=== PATIENT | male | born 1930 | race Caucasian/White ===

== ENCOUNTER 2017-06-07 09:50 | Emergency (ER) | payer MEDICARE, OTHER ==
[2017-06-07] MEDS ORDERED: Albuterol 0.083% 2.5 MG/3 ML Neb Soln NEB ONE (12:35)
--- NOTE | 2017-06-07 12:39 | CR ---
Chest: Frontal view of the chest was obtained. Comparison: No previous study. Large hiatal hernia seen. Heart size appears within normal limits. Sternotomy for CABG is seen. Lungs are clear. Bony structures are grossly intact. Impression: 1. Large hiatal hernia. Prior CABG. 2. Nothing acute is appreciated on frontal chest x-ray. Diagnostic code #2
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
== END 2017-06-07 13:34 | disposition home or self-care (01) ==
LOC: SUPCPDRO 09:50 → JD.ED 09:50
DX: J40 Bronchitis, not specified as acute or chronic (principal); I10 Essential (primary) hypertension; K21.9 Gastro-esophageal reflux disease without esophagitis; G30.9 Alzheimer's disease, unspecified; F02.80 Dementia in other diseases classified elsewhere, unspecified severity, without behavioral disturbance, psychotic disturbance, mood disturbance, and anxiety; Z79.82 Long term (current) use of aspirin; Z79.899 Other long term (current) drug therapy; Z79.02 Long term (current) use of antithrombotics/antiplatelets; Z88.1 Allergy status to other antibiotic agents; Z88.5 Allergy status to narcotic agent; Z88.8 Allergy status to other drugs, medicaments and biological substances
CPT/HCPCS: 36415; 71045; 71045-26; 80053; 83880; 85025; 93005; 93010; 94640; 99283-25; 99284-25

== ENCOUNTER 2017-06-09 19:27 | Emergency (ER) | payer MEDICARE, OTHER ==
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
[2017-06-09] MEDS: Albuterol/Ipratropium 3.0-0.5 MG/3 ML Neb Soln NEB ONE (20:50)
[2017-06-09] MEDS: Albuterol 6.7 GM Inhaler INH ONE (22:33)
[2017-06-09] MEDS: Famotidine 20 MG Tab PO ONE (23:36)
--- NOTE | 2017-06-10 08:17 | CR ---
Chest: Two views of the chest were obtained. Comparison: Prior chest x-ray of 06/07/17. Large hiatal hernia is seen. Heart size appears within normal limits. Tortuous thoracic aorta is seen. Sternotomy wires are noted from prior CABG. Bony structures are osteopenic. Degenerative endplate spurring is noted within the lower thoracic spine. Lungs are clear with no acute parenchymal densities. Impression: 1. Findings as noted above. Nothing acute is appreciated on two-view chest x-ray. Diagnostic code #2
== END 2017-06-09 23:50 | disposition home or self-care (01) ==
LOC: JD.ED 19:27
DX: J40 Bronchitis, not specified as acute or chronic (principal); K21.9 Gastro-esophageal reflux disease without esophagitis; I10 Essential (primary) hypertension; I25.2 Old myocardial infarction; Z88.8 Allergy status to other drugs, medicaments and biological substances; Z88.5 Allergy status to narcotic agent; Z79.82 Long term (current) use of aspirin; Z79.899 Other long term (current) drug therapy
CPT/HCPCS: 36415; 71046; 80053; 83880; 84484; 85025; 93005; 94640; 94664; 99285; A9270

== ENCOUNTER 2017-06-11 13:04 | Inpatient (IN) | payer MEDICARE, OTHER ==
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
[2017-06-11] MEDS: Sodium Chloride 0.9% 1,000 ML IV SCH ×2 (15:51→22:51)
[2017-06-11] MEDS ORDERED: Iopamidol 755 Mg/ML 100 ML Bottle IVPUSH ONE (15:53)
[2017-06-11] MEDS ORDERED: Sodium Chloride 0.9% 10 ML Syringe FLUSH PRN (15:53)
[2017-06-11] MEDS ORDERED: Sodium Chloride 0.9% 100 ML IV SCH (16:00)
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
[2017-06-11] MEDS ORDERED: LORazepam 2 MG/ML SDV IVPUSH PRN (20:11)
[2017-06-11] MEDS ORDERED: Promethazine 6.25 MG in Sodium Chloride 0.9% 50 ML IV PRN (20:15)
[2017-06-11] MEDS ORDERED: HYDROmorphone 0.5 MG/0.5 ML SYRINGE IVPUSH PRN (20:15)
[2017-06-11] MEDS ORDERED: Docusate Sodium 100 MG Cap PO PRN (20:15)
[2017-06-11] MEDS ORDERED: Albuterol/Ipratropium 3.0-0.5 MG/3 ML Neb Soln NEB PRN (20:15)
[2017-06-11] MEDS ORDERED: Bisacodyl 5 MG Tab PO PRN (20:15)
[2017-06-11] MEDS ORDERED: Polyethylene Glycol 3350 Powder 17 GM Packet PO PRN (20:15)
[2017-06-11] MEDS ORDERED: Ondansetron 4 MG/2 ML SDV IV PRN (20:15)
[2017-06-11] MEDS ORDERED: LORazepam 2 MG/ML SDV IV PRN (20:15)
[2017-06-11] MEDS: Temazepam 7.5 MG Cap PO PRN (22:21)
[2017-06-11] MEDS: Midodrine 5 MG Tab PO SCH (22:21)
[2017-06-12] MEDS: Benzonatate 100 MG Cap PO SCH ×3 (08:44→21:13)
[2017-06-12] MEDS ORDERED: Benzonatate 100 MG Cap PO PRN (08:46)
[2017-06-12] MEDS: Midodrine 5 MG Tab PO SCH ×3 (08:49→18:20)
[2017-06-12] MEDS: guaiFENesin/Dextromethorphan 100-10 MG/5 ML Soln 5 ML Cup PO PRN ×2 (11:07→18:21)
[2017-06-12] MEDS: Enoxaparin 40 MG/0.4 ML Syringe SUBCUT SCH (11:07)
--- NOTE | 2017-06-12 16:52 | CT ---
Head CT Technique: Multiple axial sections through the brain were obtained. Intravenous contrast was not utilized. Comparison: No prior intracranial imaging. Findings: Ventricles along with basal cisterns and sulci over the convexities are moderately prominent. Diminished density is noted within the periventricular and subcortical white matter which is compatible with small vessel ischemic demyelination change. Several lacunar infarcts are noted within the basal ganglia on both sides. No evidence of intracranial hemorrhage. No midline shift or mass effect is seen. Atherosclerotic calcification is seen within the vertebral vessels and within the carotid siphon. Mild mucosal thickening is seen within the maxillary and ethmoid sinuses. No air-fluid levels are seen within the paranasal sinuses. No acute calvarial abnormality is seen. Impression: 1. Sinus findings felt to be chronic. 2. Senescent change as noted above. 3. Nothing acute is identified on noncontrast head CT study. Diagnostic code #2 I agree with preliminary report issued by [facility] ([facility] preliminary report dictated on 06/11/17, 3:44 PM Central Time)
--- NOTE | 2017-06-12 16:52 | CR ---
Abdominal series: Supine and upright views of the abdomen were obtained as well as frontal view of the chest. Comparison: No prior abdominal x-ray, prior chest x-ray of 06/09/17 is available. Large hiatal hernia is noted. Heart size appears within normal limits. Atherosclerotic change is noted within the aorta. Sternotomy wires are noted as well as mediastinal surgical clips. Lungs are clear. No free air is identified. Bowel gas pattern appears normal. Vascular calcification is seen. Osteopenia is noted. Degenerative change is scattered within the spine. Impression: 1. Incidental findings. Nothing acute is appreciated on abdominal series. Diagnostic code #2
--- NOTE | 2017-06-12 16:52 | CT ---
CT chest Technique: Multiple axial sections were obtained from above the lung apices inferiorly through the lung bases. Intravenous contrast was utilized. Study has been performed as a pulmonary angiogram protocol. Comparison: No prior chest CT is available. Findings: Soft tissue abnormalities are seen most likely due to bypass graft aneurysms with one being seen lateral to the left pulmonary artery with greatest measurement of 4.2 cm. Second aneurysm believed to be present adjacent to the right ventricle which is bilobed and measures about 4.6 cm in greatest dimension. No pericardial thickening is seen. Pulmonary arteries are well-opacified. No filling defects are seen to indicate pulmonary embolism. Mediastinum and hilar regions show no adenopathy or mass. No axillary adenopathy is noted. Large hiatal hernia is noted. Intrahepatic biliary air is seen and please correlate if patient has had previous biliary intervention. Degenerative spurring is noted throughout the spine. Lungs show no acute parenchymal change. Impression: 1. 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 2. Large hiatal hernia. 3. No findings of pulmonary embolism. 4. Other incidental findings as noted above. Diagnostic code #3 Agree with preliminary report issued by [facility] ([facility] preliminary report dictated on 06/11/17, 5:35 PM Central Time)
--- NOTE | 2017-06-12 16:52 | CT ---
CT cervical spine Technique: Multiple axial sections were obtained from above C1 inferiorly to the bottom of T1. Reconstructed sagittal and coronal images were obtained. Comparison: No prior cervical spine imaging. Findings: Disc space narrowing is noted at C3-C4 through C7-T1. Posterior osteophytes are seen throughout the cervical spine as well as minimal anterior spurring. Scattered areas of disc calcification are noted. Degenerative change is noted between the dens and anterior arch of C1. Mild degenerative change is scattered within the apophyseal joints. Diffuse degenerative spurring is noted within the uncovertebral joints. No fracture is seen. Moderate disc space narrowing is noted bilaterally at C3-C4. Mild bilateral neural foraminal stenosis noted at C4-C5. Moderate to severe bilateral neural foraminal stenosis is noted at C5-C6 and C6-C7. No abnormal subluxation is seen. Impression: 1. Diffuse degenerative change. 2. Nothing acute is identified on CT study of the cervical spine. Diagnostic code #3 Agree with preliminary report issued by [facility] ([facility] preliminary report dictated on 06/11/17, 3:41 PM Central Time)
[2017-06-12] MEDS: Sodium Chloride 0.9% 1,000 ML IV SCH (18:17)
--- NOTE | 2017-06-12 19:09 | PCM.PN ---
- General Info Date of Service: 06/12/17 Admission Dx/Problem (Free Text): Admission Diagnosis/Problem Admission Diagnosis/Problem Weakness of both lower extremities Subjective Update: Follow Up Functional Status: Reports: Pain Controlled, Tolerating Diet, Urinating. Denies : New Symptoms - Review of Systems General: Denies: Fever, Weakness, Fatigue, Malaise, Chills HEENT: Reports: No Symptoms Pulmonary: Reports: Cough, Sputum. Denies: Shortness of Breath Cardiovascular: Denies: Chest Pain, Palpitations, Dyspnea on Exertion, Edema, Lightheadedness Gastrointestinal: Denies: Abdominal Pain, Nausea, Vomiting Genitourinary: Reports: No Symptoms Musculoskeletal: Reports: No Symptoms Skin: Denies: Cyanosis, Mottled, Pallor, Diaphoresis Neurological: Reports: Confusion (baseline dementia), Gait Disturbance. Denies : Difficulty Walking, Weakness Psychiatric: Denies: Depression, Anxiety, Agitation, Hallucinations Systems Review Comment:: No significant overnight or acute issues. Still has lingering productive cough. He appears to be comfortable and in no distress. He reports no complaints. - Patient Data Vitals - Most Recent: Last Vital Signs Temp 36.8 C 06/12/17 15:47 Pulse 70 06/12/17 15:47 Resp 22 H 06/12/17 15:47 BP 136/84 06/12/17 16:00 Pulse Ox 94 L 06/12/17 15:47 Weight - Most Recent: 72.892 kg I&O - Last 24 Hours: Intake & Output 06/12/17 06/12/17 06/12/17 06:59 14:59 22:59 Intake Total 400 0 1756 Output Total 800 300 Balance -400 0 1456 Lab Results Last 24 Hours: Laboratory Results - last 24 hr 06/12/17 06/12/17 Range/Units 06:50 06:50 WBC 10.59 H (4.23-9.07) K/mm3 RBC 4.30 L (4.63-6.08) M/mm3 Hgb 14.4 (13.7-17.5) gm/L Hct 40.5 (40.1-51.0) % MCV 94.2 H (79.0-92.2) fl MCH 33.5 H (25.7-32.2) pg MCHC 35.6 H (32.2-35.5) g/dl RDW Std Deviation 44.3 H (35.1-43.9) fL Plt Count 162 L (163-337) K/mm3 MPV 10.9 (9.4-12.3) fl Neut % (Auto) 70.1 H (34.0-67.9) % Lymph % (Auto) 13.0 L (21.8-53.1) % [place] % (Auto) 12.6 H (5.3-12.2) % Eos % (Auto) 3.8 (0.8-7.0) Baso % (Auto) 0.3 (0.1-1.2) % Neut # (Auto) 7.43 H (1.78-5.38) K/mm3 Lymph # (Auto) 1.38 (1.32-3.57) K/mm3 [place] # (Auto) 1.33 H (0.30-0.82) K/mm3 Eos # (Auto) 0.40 (0.04-0.54) K/mm3 Baso # (Auto) 0.03 (0.01-0.08) K/mm3 Sodium 144 (136-145) mEq/L Potassium 3.6 (3.5-5.1) mEq/L Chloride 108 H (98-107) mEq/L Carbon Dioxide 24 (21-32) mEq/L Anion Gap 15.6 H (5-15) BUN 24 H (7-18) mg/dL Creatinine 0.9 (0.7-1.3) mg/dL Est Cr Clr Drug Dosing 61.10 mL/min Estimated GFR (MDRD) > 60 (>60) mL/min BUN/Creatinine Ratio 26.7 H (14-18) Glucose 105 (83-115) mg/dL Calcium 8.7 (8.5-10.1) mg/dL Magnesium 1.9 (1.8-2.4) mg/dl C-Reactive Protein 0.9 (<1.0) mg/dL [place] Results Last 24 Hours: Microbiology 06/12/17 18:25 Influenza Type A Antigen Screen - Final Nasal Aspirate, Unspecified NEGATIVE INFLUENZA A VIRUS AG Influenza Type B Antigen Screen - Final NEGATIVE INFLUENZA B VIRUS AG Med Orders - Current: Current Medications Acetaminophen (Tylenol) 650 mg PO Q4H PRN PRN Reason: Pain (Mild 1-3)/fever Hydrocodone Bitart/Acetaminophen ([place] 325-5 Mg) 1 tab PO Q4H PRN PRN Reason: Pain (moderate 4-6) Albuterol/Ipratropium (Duoneb 3.0-0.5 Mg/3 Ml) 3 ml NEB Q4H PRN PRN Reason: Shortness Of Breath/wheezing Last Admin: 06/12/17 03:24 Dose: 3 ml Benzonatate (Tessalon Perles) 200 mg PO TID [facility] Last Admin: 06/12/17 18:20 Dose: 200 mg Benzonatate (Tessalon Perles) 200 mg PO BID PRN PRN Reason: Cough Bisacodyl (Dulcolax) 5 mg PO DAILY PRN PRN Reason: Constipation Docusate Sodium (Colace) 100 mg PO BID PRN PRN Reason: Constipation Enoxaparin Sodium (Lovenox) 40 mg SUBCUT DAILY [facility] Last Admin: 06/12/17 11:07 Dose: 40 mg Guaifenesin/Phenylephrine HCl (Robitussin Dm) 5 ml PO Q4H PRN PRN Reason: Cough Last Admin: 06/12/17 18:21 Dose: 5 ml Hydralazine HCl (Apresoline) 10 mg IVPUSH Q4H PRN PRN Reason: Hypertension Hydromorphone HCl (Dilaudid) 0.25 mg IVPUSH Q2H PRN PRN Reason: Pain (severe 7-10) Promethazine HCl 6.25 mg/ (Sodium Chloride) 50.25 mls @ 100 mls/hr IV Q6H PRN PRN Reason: Nausea/Vomiting Sodium Chloride (Normal Saline) 1,000 mls @ 75 mls/hr IV ASDIRECTED [facility] Last Admin: 06/12/17 18:17 Dose: 75 mls/hr Lorazepam (Ativan) 2 mg IVPUSH Q4H PRN PRN Reason: Seizures Lorazepam (Ativan) 0.25 mg IV Q6H PRN PRN Reason: Anxiety Magnesium Sulfate (Pharmacy To Dose - Magnesium Replacement) 1 dose .XX ASDIRECTED [facility] Metoprolol Tartrate (Lopressor) 5 mg IVPUSH Q4H PRN PRN Reason: Tachycardia Midodrine (Midodrine) 5 mg PO TIDAC [facility] Last Admin: 06/12/17 18:20 Dose: 5 mg Ondansetron HCl (Zofran) 4 mg IV Q6H PRN PRN Reason: Nausea/Vomiting Polyethylene Glycol (Miralax) 17 gm PO DAILY PRN PRN Reason: Constipation Last Admin: 06/12/17 13:35 Dose: 17 gm Potassium Chloride (Pharmacy To Dose - Potassium Replacement) 1 dose .XX ASDIRECTED [facility] Senna/Docusate Sodium (Senna Plus) 1 tab PO BID PRN PRN Reason: Constipation Sodium Chloride (Saline Flush) 10 ml FLUSH ONETIME PRN PRN Reason: IV FLUSH Last Admin: 06/11/17 16:08 Dose: 10 ml Temazepam (Restoril) 7.5 mg PO BEDTIME PRN PRN Reason: Sleep Last Admin: 06/11/17 22:21 Dose: 7.5 mg Discontinued Medications Sodium Chloride (Normal Saline) 1,000 mls @ 150 mls/hr IV ASDIRECTED [facility] Last Admin: 06/11/17 22:51 Dose: 999 mls/hr Sodium Chloride (Normal Saline) 100 mls @ 75 mls/hr IV ASDIRECTED [facility] Last Admin: 06/11/17 16:08 Dose: 75 mls/hr Iopamidol (Isovue-370 (76%)) 100 ml IVPUSH ONETIME ONE Stop: 06/11/17 15:54 Last Admin: 06/11/17 16:07 Dose: 80 ml - Exam General: Alert, Cooperative, No Acute Distress HEENT: Pupils Equal, Pupils Reactive, EOMI, Mucous Membr. Moist/[place] Neck: Supple, Trachea Midline Lungs: Normal Respiratory Effort, Decreased Breath Sounds Cardiovascular: Regular Rate, Regular Rhythm GI/Abdominal Exam: Normal Bowel Sounds, Soft, Non-Tender, No Organomegaly, No Distention, No Abnormal Bruit, No Mass (Male) Exam: Deferred Back Exam: Normal Inspection, Decreased Range of Motion Extremities: Normal Inspection, Normal Range of Motion, Non-Tender, No Pedal Edema, Normal Capillary Refill Peripheral Pulses: 2+: Dorsalis Pedis (L), Dorsalis Pedis (R) Skin: Warm, Dry, Intact Neurological: No New Focal Deficit Psy/Mental Status: Alert, Normal Affect, Normal Mood - Problem List Review Problem List Initiated/Reviewed/Updated: Yes - My Orders Last 24 Hours: My Active Orders 06/11/17 20:11 LORazepam [Ativan] 2 mg IVPUSH Q4H PRN Metoprolol Tartrate [Lopressor] 5 mg IVPUSH Q4H PRN hydrALAZINE [Apresoline] 10 mg IVPUSH Q4H PRN 06/11/17 20:13 Oxygen Therapy [RC] PRN VTE/DVT Education [RC] DAILY Resuscitation Status Routine 06/11/17 20:15 Height and Weight [RC] 04 Intake and Output [RC] 22,04 Up With Assistance [RC] ASDIRECTED Up ad Jennifer [RC] ASDIRECTED Vital Signs [RC] Q4HR Acetaminophen [Tylenol] 650 mg PO Q4H PRN Acetaminophen/HYDROcodone [[place] 325-5 MG] 1 tab PO Q4H PRN Albuterol/Ipratropium [DuoNeb 3.0-0.5 MG/3 ML] 3 ml NEB Q4H PRN Bisacodyl [Dulcolax] 5 mg PO DAILY PRN Docusate Sodium [Colace] 100 mg PO BID PRN Docusate Sodium/Sennosides [Senna Plus] 1 tab PO BID PRN HYDROmorphone [Dilaudid] 0.25 mg IVPUSH Q2H PRN LORazepam [Ativan] 0.25 mg IV Q6H PRN Magnesium Rep Pharmacy to Dose [Pharmacy to Dose - Magnesium Replacement] 1 dose .XX ASDIRECTED Ondansetron [Zofran] 4 mg IV Q6H PRN Polyethylene Glycol 3350 [MiraLAX] 17 gm PO DAILY PRN Potassium Rep Pharmacy to Dose [Pharmacy to Dose - Potassium Replacement] 1 dose .XX ASDIRECTED Promethazine [Phenergan] 6.25 mg Sodium Chloride 0.9% [Normal Saline] 50 ml IV Q6H Temazepam [Restoril] 7.5 mg PO BEDTIME PRN 06/11/17 20:18 RT Aerosol Therapy [RC] ASDIRECTED Consult to Case Management [CONS] Routine Consult to Management Instructor [CONS] Routine Consult to Spiritual Care [CONS] Routine OT Evaluation and Treatment [CONS] Routine PT Evaluation and Treatment [CONS] Routine Respiratory Care Assess and Treatment [CONS] Routine 06/11/17 20:20 Precautions [COMM] Routine 06/11/17 20:22 Orthostatic Vital Signs [RC] ASDIRECTED 06/11/17 21:00 Midodrine 5 mg PO TIDAC 06/12/17 08:31 Dextromethorphan/guaiFENesin [Robitussin DM] 5 ml PO Q4H PRN 06/12/17 08:45 Antiembolic Devices [RC] PER UNIT ROUTINE JAY Hose [Antiembolic Hose] [OM.PC] Routine 06/12/17 08:46 Benzonatate [Tessalon Perles] 200 mg PO BID PRN 06/12/17 09:00 Benzonatate [Tessalon Perles] 200 mg PO TID 06/12/17 10:00 Sodium Chloride 0.9% [Normal Saline] 1,000 ml IV ASDIRECTED 06/12/17 11:00 Enoxaparin [Lovenox] 40 mg SUBCUT DAILY 06/13/17 05:11 BASIC METABOLIC PANEL,BMP [CHEM] AM CBC WITH AUTO DIFF [HEME] AM MAGNESIUM [CHEM] AM 06/14/17 05:11 BASIC METABOLIC PANEL,BMP [CHEM] AM CBC WITH AUTO DIFF [HEME] AM MAGNESIUM [CHEM] AM 06/15/17 05:11 BASIC METABOLIC PANEL,BMP [CHEM] AM CBC WITH AUTO DIFF [HEME] AM MAGNESIUM [CHEM] AM 06/16/17 05:11 BASIC METABOLIC PANEL,BMP [CHEM] AM CBC WITH AUTO DIFF [HEME] AM MAGNESIUM [CHEM] AM - Plan Plan:: Assessment/Plan: Acute: Near Syncopal Episode - Vasovagal but could be Multi-factorial: Poor oral intake, recent illness with bronchitis, dehydration, hypotension, bradycardia,polypharmacy +/- cardiac in etiology - EKG sows no acute ST-T wave changes - HR on presentation 53; BP documented 70/40 mmHg - Head CT scan/Chest and Abdominal XR all shows no acute abnormal findings - Cervical CT scan report reads diffuse degenerative changes. 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
[2017-06-12] MEDS: Temazepam 7.5 MG Cap PO PRN (21:10)
[2017-06-13] MEDS: Sodium Chloride 0.9% 1,000 ML IV SCH ×2 (01:00→16:37)
[2017-06-13] MEDS: guaiFENesin/Dextromethorphan 100-10 MG/5 ML Soln 5 ML Cup PO PRN (01:04)
[2017-06-13] MEDS: Benzonatate 100 MG Cap PO SCH (08:25)
[2017-06-13] MEDS: Enoxaparin 40 MG/0.4 ML Syringe SUBCUT SCH (08:26)
--- NOTE | 2017-06-13 08:32 | PCM.PN ---
- General Info Date of Service: 06/13/17 Admission Dx/Problem (Free Text): Admission Diagnosis/Problem Admission Diagnosis/Problem Weakness of both lower extremities Subjective Update: In to see Ishan. He reports worsening weakness. He denies any pain at this time. He does have a good appetite. No concerns from patient or nursing. Functional Status: Reports: Pain Controlled, Tolerating Diet, Ambulating, Urinating. Denies: New Symptoms - Review of Systems General: Reports: Weakness, Fatigue. Denies: Fever HEENT: Reports: No Symptoms Pulmonary: Reports: Cough, Sputum. Denies: Shortness of Breath, Wheezing Cardiovascular: Denies: Chest Pain, Dyspnea on Exertion Gastrointestinal: Reports: No Symptoms. Denies: Abdominal Pain, Constipation, Decreased Appetite, Diarrhea, Nausea, Vomiting Genitourinary: Reports: No Symptoms Musculoskeletal: Reports: No Symptoms Skin: Reports: No Symptoms Neurological: Reports: Confusion, Difficulty Walking, Gait Disturbance Psychiatric: Reports: No Symptoms - Patient Data Vitals - Most Recent: Last Vital Signs Temp 97.9 F 06/13/17 08:19 Pulse 81 06/13/17 08:19 Resp 18 06/13/17 08:19 BP 152/81 H 06/13/17 08:19 Pulse Ox 90 L 06/13/17 08:19 Weight - Most Recent: 160 lb 11.2 oz I&O - Last 24 Hours: Intake & Output 06/12/17 06/13/17 06/13/17 22:59 06:59 14:59 Intake Total 1756 Output Total 300 Balance 1456 Lab Results Last 24 Hours: Laboratory Results - last 24 hr 06/13/17 06/13/17 Range/Units 05:51 05:51 WBC 10.73 H (4.23-9.07) K/mm3 RBC 4.39 L (4.63-6.08) M/mm3 Hgb 14.8 (13.7-17.5) gm/L Hct 41.6 (40.1-51.0) % MCV 94.8 H (79.0-92.2) fl MCH 33.7 H (25.7-32.2) pg MCHC 35.6 H (32.2-35.5) g/dl RDW Std Deviation 45.5 H (35.1-43.9) fL Plt Count 162 L (163-337) K/mm3 MPV 11.6 (9.4-12.3) fl Neut % (Auto) 62.3 (34.0-67.9) % Lymph % (Auto) 14.8 L (21.8-53.1) % [place] % (Auto) 11.8 (5.3-12.2) % Eos % (Auto) 10.5 H (0.8-7.0) Baso % (Auto) 0.4 (0.1-1.2) % Neut # (Auto) 6.68 H (1.78-5.38) K/mm3 Lymph # (Auto) 1.59 (1.32-3.57) K/mm3 [place] # (Auto) 1.27 H (0.30-0.82) K/mm3 Eos # (Auto) 1.13 H (0.04-0.54) K/mm3 Baso # (Auto) 0.04 (0.01-0.08) K/mm3 Sodium 142 (136-145) mEq/L Potassium 3.5 (3.5-5.1) mEq/L Chloride 107 (98-107) mEq/L Carbon Dioxide 24 (21-32) mEq/L Anion Gap 14.5 (5-15) BUN 16 (7-18) mg/dL Creatinine 0.8 (0.7-1.3) mg/dL Est Cr Clr Drug Dosing 68.74 mL/min Estimated GFR (MDRD) > 60 (>60) mL/min BUN/Creatinine Ratio 20.0 H (14-18) Glucose 95 (83-115) mg/dL Calcium 8.7 (8.5-10.1) mg/dL Magnesium 1.9 (1.8-2.4) mg/dl [place] Results Last 24 Hours: Microbiology 06/12/17 18:25 Influenza Type A Antigen Screen - Final Nasal Aspirate, Unspecified NEGATIVE INFLUENZA A VIRUS AG Influenza Type B Antigen Screen - Final NEGATIVE INFLUENZA B VIRUS AG Med Orders - Current: Current Medications Acetaminophen (Tylenol) 650 mg PO Q4H PRN PRN Reason: Pain (Mild 1-3)/fever Hydrocodone Bitart/Acetaminophen ([place] 325-5 Mg) 1 tab PO Q4H PRN PRN Reason: Pain (moderate 4-6) Albuterol/Ipratropium (Duoneb 3.0-0.5 Mg/3 Ml) 3 ml NEB Q4H PRN PRN Reason: Shortness Of Breath/wheezing Last Admin: 06/12/17 03:24 Dose: 3 ml Benzonatate (Tessalon Perles) 200 mg PO TID [facility] Last Admin: 06/13/17 08:25 Dose: 200 mg Benzonatate (Tessalon Perles) 200 mg PO BID PRN PRN Reason: Cough Bisacodyl (Dulcolax) 5 mg PO DAILY PRN PRN Reason: Constipation Docusate Sodium (Colace) 100 mg PO BID PRN PRN Reason: Constipation Enoxaparin Sodium (Lovenox) 40 mg SUBCUT DAILY [facility] Last Admin: 06/13/17 08:26 Dose: 40 mg Guaifenesin/Phenylephrine HCl (Robitussin Dm) 5 ml PO Q4H PRN PRN Reason: Cough Last Admin: 06/13/17 01:04 Dose: 5 ml Hydralazine HCl (Apresoline) 10 mg IVPUSH Q4H PRN PRN Reason: Hypertension Hydromorphone HCl (Dilaudid) 0.25 mg IVPUSH Q2H PRN PRN Reason: Pain (severe 7-10) Promethazine HCl 6.25 mg/ (Sodium Chloride) 50.25 mls @ 100 mls/hr IV Q6H PRN PRN Reason: Nausea/Vomiting Sodium Chloride (Normal Saline) 1,000 mls @ 75 mls/hr IV ASDIRECTED [facility] Last Admin: 06/13/17 01:00 Dose: 75 mls/hr Lorazepam (Ativan) 2 mg IVPUSH Q4H PRN PRN Reason: Seizures Lorazepam (Ativan) 0.25 mg IV Q6H PRN PRN Reason: Anxiety Magnesium Sulfate (Pharmacy To Dose - Magnesium Replacement) 1 dose .XX ASDIRECTED [facility] Metoprolol Tartrate (Lopressor) 5 mg IVPUSH Q4H PRN PRN Reason: Tachycardia Midodrine (Midodrine) 5 mg PO TIDAC [facility] Last Admin: 06/12/17 18:20 Dose: 5 mg Ondansetron HCl (Zofran) 4 mg IV Q6H PRN PRN Reason: Nausea/Vomiting Polyethylene Glycol (Miralax) 17 gm PO DAILY PRN PRN Reason: Constipation Last Admin: 06/12/17 13:35 Dose: 17 gm Potassium Chloride (Pharmacy To Dose - Potassium Replacement) 1 dose .XX ASDIRECTED [facility] Senna/Docusate Sodium (Senna Plus) 1 tab PO BID PRN PRN Reason: Constipation Sodium Chloride (Saline Flush) 10 ml FLUSH ONETIME PRN PRN Reason: IV FLUSH Last Admin: 06/11/17 16:08 Dose: 10 ml Temazepam (Restoril) 7.5 mg PO BEDTIME PRN PRN Reason: Sleep Last Admin: 06/12/17 21:10 Dose: 7.5 mg Discontinued Medications Sodium Chloride (Normal Saline) 1,000 mls @ 150 mls/hr IV ASDIRECTED [facility] Last Admin: 06/11/17 22:51 Dose: 999 mls/hr Sodium Chloride (Normal Saline) 100 mls @ 75 mls/hr IV ASDIRECTED [facility] Last Admin: 06/11/17 16:08 Dose: 75 mls/hr Iopamidol (Isovue-370 (76%)) 100 ml IVPUSH ONETIME ONE Stop: 06/11/17 15:54 Last Admin: 06/11/17 16:07 Dose: 80 ml - Exam Quality Assessment: DVT Prophylaxis General: Alert, Cooperative, No Acute Distress HEENT: Pupils Equal, Pupils Reactive, EOMI, Mucous Membr. Moist/[place] Neck: Supple, Trachea Midline, No JVD Lungs: Clear to Auscultation, Normal Respiratory Effort, Decreased Breath Sounds Cardiovascular: Regular Rate, Regular Rhythm GI/Abdominal Exam: Normal Bowel Sounds, Soft, Non-Tender, No Organomegaly, No Distention, No Abnormal Bruit, No Mass, Pelvis Stable (Male) Exam: Deferred Back Exam: Normal Inspection, Full Range of Motion Extremities: Normal Inspection, Normal Range of Motion, Non-Tender, No Pedal Edema, Normal Capillary Refill Peripheral Pulses: 2+: Radial (L), Radial (R), Posterior Tibial (L), Posterior Tibial (R), Dorsalis Pedis (L), Dorsalis Pedis (R) Skin: Warm, Dry, Intact Neurological: No New Focal Deficit Psy/Mental Status: Alert, Normal Affect, Normal Mood - Problem List & Annotations (1) Dehydration SNOMED Code(s): 87283956 Code(s): E86.0 - DEHYDRATION Status: Acute Current Visit: Yes (2) Generalized weakness SNOMED Code(s): 66553667 Code(s): R53.1 - WEAKNESS Status: Acute Current Visit: Yes (3) Vasovagal episode SNOMED Code(s): 261991082 Code(s): R55 - SYNCOPE AND COLLAPSE Status: Acute Priority: High Current Visit: Yes (4) CAD (coronary artery disease) SNOMED Code(s): 59292537 Code(s): I25.10 - ATHSCL HEART DISEASE OF [place] CORONARY ARTERY W/O ANG PCTRS Status: Chronic Priority: Medium Current Visit: No Qualifiers: Coronary Disease-Associated Artery/Lesion type: unspecified vessel or lesion type [place] vs. transplanted heart: unspecified whether [place] or transplanted heart Associated angina: angina presence unspecified Qualified Code(s): I25.10 - Atherosclerotic heart disease of [place] coronary artery without angina pectoris (5) GERD (gastroesophageal reflux disease) SNOMED Code(s): 546206990 Code(s): K21.9 - GASTRO-ESOPHAGEAL REFLUX DISEASE WITHOUT ESOPHAGITIS Status: Chronic Priority: Low Current Visit: No Qualifiers: Esophagitis presence: esophagitis presence not specified Qualified Code(s) : K21.9 - Gastro-esophageal reflux disease without esophagitis (6) Dementia SNOMED Code(s): 84885252 Code(s): F03.90 - UNSPECIFIED DEMENTIA WITHOUT BEHAVIORAL DISTURBANCE Status: Chronic Priority: Medium Current Visit: Yes Qualifiers: Dementia type: Alzheimer's disease Alzheimer's disease onset: unspecified onset Dementia behavioral disturbance: without behavioral disturbance Qualified Code(s): G30.9 - Alzheimer's disease, unspecified; F02.80 - Dementia in other diseases classified elsewhere without behavioral disturbance; F02.80 - Dementia in other diseases classified elsewhere without behavioral disturbance; F02.80 - Dementia in other diseases classified elsewhere without behavioral disturbance - Problem List Review Problem List Initiated/Reviewed/Updated: Yes - Plan Plan:: Assessment/Plan: Acute: Near Syncopal Episode - Vasovagal but could be Multi-factorial: Poor oral intake, recent illness with bronchitis, dehydration, hypotension, bradycardia,polypharmacy +/- cardiac in etiology - EKG sows no acute ST-T wave changes - HR on presentation 53; BP documented 70/40 mmHg - Head CT scan/Chest and Abdominal XR all shows no acute abnormal findings - Cervical CT scan report reads diffuse degenerative changes. 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
[2017-06-13] MEDS: Midodrine 5 MG Tab PO SCH (08:34)
[2017-06-13] MEDS ORDERED: Nitroglycerin 0.4 MG Tab.SL SL PRN (18:16)
[2017-06-13] MEDS ORDERED: Famotidine 20 MG Tab PO SCH (21:00)
[2017-06-13] MEDS: Phenytoin 100 MG Cap.ER PO SCH (22:31)
[2017-06-13] MEDS: Donepezil 10 MG Tab PO SCH (22:32)
[2017-06-13] MEDS: Clopidogrel 75 MG Tab PO SCH (22:32)
[2017-06-14] MEDS: hydrALAZINE 20 MG/ML SDV IVPUSH PRN (04:20)
[2017-06-14] MEDS: Acetaminophen/HYDROcodone 325-5 MG Tab PO PRN ×3 (04:25→21:57)
[2017-06-14] MEDS: Aspirin 81 MG Tab.Chew PO SCH (08:43)
[2017-06-14] MEDS: Isosorbide Mononitrate 30 MG Tab.ER PO SCH (08:43)
[2017-06-14] MEDS: Enoxaparin 40 MG/0.4 ML Syringe SUBCUT SCH (08:43)
[2017-06-14] MEDS: Sertraline 50 MG Tab PO SCH (08:43)
[2017-06-14] MEDS: Potassium Chloride 20 MEQ Tab.ER PO SCH ×2 (08:43→11:37)
[2017-06-14] MEDS: Magnesium Oxide 400 MG Tab PO SCH (08:43)
[2017-06-14] MEDS: Pantoprazole 40 MG Tab.CR PO SCH (08:43)
[2017-06-14] MEDS: Tamsulosin 0.4 MG Cap.ER PO SCH (08:44)
[2017-06-14] MEDS ORDERED: METOPROLOL SUCCINATE PO SCH (09:00)
[2017-06-14] MEDS ORDERED: Non-Formulary Medication 1 Each (Valsartan/Hydrochlorothiazide [Diovan Hct 160-25 Mg Table PO SCH (09:00)
[2017-06-14] MEDS ORDERED: Lisinopril 5 MG Tab PO SCH (09:00)
[2017-06-14] MEDS ORDERED: Celecoxib 100 MG Cap PO SCH (09:00)
--- NOTE | 2017-06-14 12:06 | CR ---
Chest: Two views of the chest were obtained. Comparison: Prior chest x-ray of 06/09/17. Large hiatal hernia is seen. Heart size is normal. Tortuous thoracic aorta is seen. Previous sternotomy is noted. Lungs are clear with no acute parenchymal change. Bony structures show mild degenerative change within the spine with mild compression deformity within the mid thoracic spine which is stable. Impression: 1. Incidental findings. Nothing acute is seen on two-view chest x-ray. Diagnostic code #2
--- NOTE | 2017-06-14 14:31 | PCM.PN ---
- General Info Date of Service: 06/14/17 Admission Dx/Problem (Free Text): Admission Diagnosis/Problem Admission Diagnosis/Problem Weakness of both lower extremities Subjective Update: In to see Ishan. He is sleeping however wakes easily. He reports that he is still very weak. He does report a cough, however he has not coughed at all in my presence. Lung sounds are clear but diminished. Nursing does report noting some very mild wheezes in right lower quadrant and right middle lung field. This is not appreciated on my exam. PT/OT has been working with the patient are recommending significant this time. His reportedly filling out paperwork for this. His blood pressure has been high as his home meds were held. We will restart ARB\HCTZ combo. He has no concerns or complaints. Nursing has no concerns. Functional Status: Reports: Pain Controlled, Tolerating Diet, Ambulating, Urinating. Denies: New Symptoms - Review of Systems General: Reports: Weakness, Fatigue. Denies: Fever HEENT: Reports: No Symptoms Pulmonary: Reports: Cough. Denies: Shortness of Breath, Sputum Cardiovascular: Reports: No Symptoms. Denies: Chest Pain, Edema Gastrointestinal: Reports: No Symptoms. Denies: Abdominal Pain, Constipation, Diarrhea, Nausea Genitourinary: Reports: No Symptoms Musculoskeletal: Reports: No Symptoms Skin: Reports: No Symptoms Neurological: Reports: Difficulty Walking, Weakness, Gait Disturbance Psychiatric: Reports: No Symptoms - Patient Data Vitals - Most Recent: Last Vital Signs Temp 99.1 F 06/14/17 11:35 Pulse 95 06/14/17 11:35 Resp 20 06/14/17 11:35 BP 145/82 H 06/14/17 11:35 Pulse Ox 94 L 06/14/17 11:35 Weight - Most Recent: 161 lb 9.6 oz I&O - Last 24 Hours: Intake & Output 06/13/17 06/14/17 06/14/17 22:59 06:59 14:59 Intake Total 800 100 210 Output Total 550 650 Balance 250 -550 210 Lab Results Last 24 Hours: Laboratory Results - last 24 hr 06/14/17 06/14/17 Range/Units 05:42 05:42 WBC 7.73 (4.23-9.07) K/mm3 RBC 4.50 L (4.63-6.08) M/mm3 Hgb 15.0 (13.7-17.5) gm/L Hct 42.1 (40.1-51.0) % MCV 93.6 H (79.0-92.2) fl MCH 33.3 H (25.7-32.2) pg MCHC 35.6 H (32.2-35.5) g/dl RDW Std Deviation 45.5 H (35.1-43.9) fL Plt Count 151 L (163-337) K/mm3 MPV 11.5 (9.4-12.3) fl Neut % (Auto) 58.4 (34.0-67.9) % Lymph % (Auto) 16.6 L (21.8-53.1) % [place] % (Auto) 13.2 H (5.3-12.2) % Eos % (Auto) 11.4 H (0.8-7.0) Baso % (Auto) 0.3 (0.1-1.2) % Neut # (Auto) 4.52 (1.78-5.38) K/mm3 Lymph # (Auto) 1.28 L (1.32-3.57) K/mm3 [place] # (Auto) 1.02 H (0.30-0.82) K/mm3 Eos # (Auto) 0.88 H (0.04-0.54) K/mm3 Baso # (Auto) 0.02 (0.01-0.08) K/mm3 Sodium 144 (136-145) mEq/L Potassium 3.1 L (3.5-5.1) mEq/L Chloride 108 H (98-107) mEq/L Carbon Dioxide 23 (21-32) mEq/L Anion Gap 16.1 H (5-15) BUN 15 (7-18) mg/dL Creatinine 0.9 (0.7-1.3) mg/dL Est Cr Clr Drug Dosing 61.10 mL/min Estimated GFR (MDRD) > 60 (>60) mL/min BUN/Creatinine Ratio 16.7 (14-18) Glucose 102 (83-115) mg/dL Calcium 8.8 (8.5-10.1) mg/dL Magnesium 1.9 (1.8-2.4) mg/dl C-Reactive Protein 4.4 H* (<1.0) mg/dL Med Orders - Current: Current Medications Acetaminophen (Tylenol) 650 mg PO Q4H PRN PRN Reason: Pain (Mild 1-3)/fever Hydrocodone Bitart/Acetaminophen ([place] 325-5 Mg) 1 tab PO Q4H PRN PRN Reason: Pain (moderate 4-6) Last Admin: 06/14/17 13:04 Dose: 1 tab Albuterol/Ipratropium (Duoneb 3.0-0.5 Mg/3 Ml) 3 ml NEB Q4H PRN PRN Reason: Shortness Of Breath/wheezing Last Admin: 06/12/17 03:24 Dose: 3 ml Aspirin (Aspirin) 81 mg PO DAILY [facility] Last Admin: 06/14/17 08:43 Dose: 81 mg Benzonatate (Tessalon Perles) 200 mg PO TID PRN PRN Reason: COUGH Bisacodyl (Dulcolax) 5 mg PO DAILY PRN PRN Reason: Constipation Celecoxib (Celebrex) 100 mg PO DAILY [facility] Last Admin: 06/14/17 08:43 Dose: 100 mg Clopidogrel Bisulfate (Plavix) 75 mg PO BEDTIME [facility] Last Admin: 06/13/17 22:32 Dose: 75 mg Docusate Sodium (Colace) 100 mg PO BID PRN PRN Reason: Constipation Donepezil HCl (Aricept) 10 mg PO BEDTIME [facility] Last Admin: 06/13/17 22:32 Dose: 10 mg Enoxaparin Sodium (Lovenox) 40 mg SUBCUT DAILY [facility] Last Admin: 06/14/17 08:43 Dose: 40 mg Guaifenesin/Phenylephrine HCl (Robitussin Dm) 5 ml PO Q4H PRN PRN Reason: Cough Last Admin: 06/13/17 01:04 Dose: 5 ml Hydralazine HCl (Apresoline) 10 mg IVPUSH Q4H PRN PRN Reason: Hypertension Last Admin: 06/14/17 04:20 Dose: 10 mg Hydromorphone HCl (Dilaudid) 0.25 mg IVPUSH Q2H PRN PRN Reason: Pain (severe 7-10) Promethazine HCl 6.25 mg/ (Sodium Chloride) 50.25 mls @ 100 mls/hr IV Q6H PRN PRN Reason: Nausea/Vomiting Isosorbide Mononitrate (Imdur) 30 mg PO DAILY [facility] Last Admin: 06/14/17 08:43 Dose: 30 mg Lorazepam (Ativan) 2 mg IVPUSH Q4H PRN PRN Reason: Seizures Lorazepam (Ativan) 0.25 mg IV Q6H PRN PRN Reason: Anxiety Magnesium Oxide (Magnesium Oxide) 400 mg PO DAILY [facility] Last Admin: 06/14/17 08:43 Dose: 400 mg Magnesium Sulfate (Pharmacy To Dose - Magnesium Replacement) 1 dose .XX ASDIRECTED [facility] Metoprolol Tartrate (Lopressor) 5 mg IVPUSH Q4H PRN PRN Reason: Tachycardia Nitroglycerin (Nitrostat) 0.4 mg SL ASDIRECTED PRN PRN Reason: Chest Pain Ondansetron HCl (Zofran) 4 mg IV Q6H PRN PRN Reason: Nausea/Vomiting Pantoprazole Sodium (Protonix) 40 mg PO DAILY [facility] Last Admin: 06/14/17 08:43 Dose: 40 mg Efudex 5% Cream 0 each TOP BID [facility] Phenytoin Sodium (Phenytoin) 200 mg PO BEDTIME [facility] Last Admin: 06/13/17 22:31 Dose: 200 mg Polyethylene Glycol (Miralax) 17 gm PO DAILY PRN PRN Reason: Constipation Last Admin: 06/12/17 13:35 Dose: 17 gm Potassium Chloride (Pharmacy To Dose - Potassium Replacement) 1 dose .XX ASDIRECTED [facility] Senna/Docusate Sodium (Senna Plus) 1 tab PO BID PRN PRN Reason: Constipation Last Admin: 06/14/17 08:43 Dose: 1 tab Sertraline HCl (Zoloft) 50 mg PO DAILY [facility] Last Admin: 06/14/17 08:43 Dose: 50 mg Sodium Chloride (Saline Flush) 10 ml FLUSH ONETIME PRN PRN Reason: IV FLUSH Last Admin: 06/11/17 16:08 Dose: 10 ml Tamsulosin HCl (Flomax) 0.4 mg PO DAILY [facility] Last Admin: 06/14/17 08:44 Dose: 0.4 mg Temazepam (Restoril) 7.5 mg PO BEDTIME PRN PRN Reason: Sleep Last Admin: 06/12/17 21:10 Dose: 7.5 mg Discontinued Medications Benzonatate (Tessalon Perles) 200 mg PO TID [facility] Last Admin: 06/13/17 08:25 Dose: 200 mg Benzonatate (Tessalon Perles) 200 mg PO BID PRN PRN Reason: Cough Famotidine (Pepcid) 20 mg PO BEDTIME [facility] Last Admin: 06/13/17 22:31 Dose: 20 mg Sodium Chloride (Normal Saline) 1,000 mls @ 150 mls/hr IV ASDIRECTED [facility] Last Admin: 06/11/17 22:51 Dose: 999 mls/hr Sodium Chloride (Normal Saline) 100 mls @ 75 mls/hr IV ASDIRECTED [facility] Last Admin: 06/11/17 16:08 Dose: 75 mls/hr Sodium Chloride (Normal Saline) 1,000 mls @ 75 mls/hr IV ASDIRECTED [facility] Last Admin: 06/13/17 16:37 Dose: 75 mls/hr Iopamidol (Isovue-370 (76%)) 100 ml IVPUSH ONETIME ONE Stop: 06/11/17 15:54 Last Admin: 06/11/17 16:07 Dose: 80 ml Lisinopril (Prinivil) 2.5 mg PO DAILY [facility] Midodrine (Midodrine) 5 mg PO TIDAC [facility] Last Admin: 06/13/17 08:34 Dose: Not Given Non-Formulary Medication (Metoprolol Succinate) 1 tab PO DAILY [facility] Non-Formulary Medication (Valsartan/Hydrochlorothiazide [Diovan Hct 160-25 Mg Tablet]) 25 - 160 mg PO DAILY [facility] Potassium Chloride (Klor-Con M20) 40 meq PO Q4H [facility] Stop: 06/14/17 12:01 Last Admin: 06/14/17 11:37 Dose: 40 meq - Exam Quality Assessment: DVT Prophylaxis General: Alert, Oriented, Cooperative, No Acute Distress HEENT: Pupils Equal, Pupils Reactive, EOMI, Mucous Membr. Moist/[place] Neck: Supple, Trachea Midline, No JVD Lungs: Clear to Auscultation, Normal Respiratory Effort, Decreased Breath Sounds Cardiovascular: Regular Rate, Regular Rhythm GI/Abdominal Exam: Normal Bowel Sounds, Soft, Non-Tender, No Organomegaly, No Distention, No Abnormal Bruit, No Mass, Pelvis Stable (Male) Exam: Deferred Back Exam: Normal Inspection, Full Range of Motion Extremities: Normal Inspection, Normal Range of Motion, Non-Tender, No Pedal Edema, Normal Capillary Refill Peripheral Pulses: 2+: Radial (L), Radial (R), Posterior Tibial (L), Posterior Tibial (R), Dorsalis Pedis (L), Dorsalis Pedis (R) Skin: Warm, Dry, Intact Neurological: No New Focal Deficit Psy/Mental Status: Alert, Normal Affect, Normal Mood - Problem List & Annotations (1) Dehydration SNOMED Code(s): 36556853 Code(s): E86.0 - DEHYDRATION Status: Acute Current Visit: Yes (2) Generalized weakness SNOMED Code(s): 37019015 Code(s): R53.1 - WEAKNESS Status: Acute Current Visit: Yes (3) Vasovagal episode SNOMED Code(s): 716507391 Code(s): R55 - SYNCOPE AND COLLAPSE Status: Acute Priority: High Current Visit: Yes (4) CAD (coronary artery disease) SNOMED Code(s): 32174686 Code(s): I25.10 - ATHSCL HEART DISEASE OF [place] CORONARY ARTERY W/O ANG PCTRS Status: Chronic Priority: Medium Current Visit: No Qualifiers: Coronary Disease-Associated Artery/Lesion type: unspecified vessel or lesion type [place] vs. transplanted heart: unspecified whether [place] or transplanted heart Associated angina: angina presence unspecified Qualified Code(s): I25.10 - Atherosclerotic heart disease of [place] coronary artery without angina pectoris (5) GERD (gastroesophageal reflux disease) SNOMED Code(s): 751690654 Code(s): K21.9 - GASTRO-ESOPHAGEAL REFLUX DISEASE WITHOUT ESOPHAGITIS Status: Chronic Priority: Low Current Visit: No Qualifiers: Esophagitis presence: esophagitis presence not specified Qualified Code(s) : K21.9 - Gastro-esophageal reflux disease without esophagitis (6) Dementia SNOMED Code(s): 24517732 Code(s): F03.90 - UNSPECIFIED DEMENTIA WITHOUT BEHAVIORAL DISTURBANCE Status: Chronic Priority: Medium Current Visit: Yes Qualifiers: Dementia type: Alzheimer's disease Alzheimer's disease onset: unspecified onset Dementia behavioral disturbance: without behavioral disturbance Qualified Code(s): G30.9 - Alzheimer's disease, unspecified; F02.80 - Dementia in other diseases classified elsewhere without behavioral disturbance; F02.80 - Dementia in other diseases classified elsewhere without behavioral disturbance; F02.80 - Dementia in other diseases classified elsewhere without behavioral disturbance - Problem List Review Problem List Initiated/Reviewed/Updated: Yes - My Orders Last 24 Hours: My Active Orders 06/13/17 18:16 Nitroglycerin [Nitrostat] 0.4 mg SL ASDIRECTED PRN 06/13/17 21:00 Benzonatate [Tessalon Perles] 200 mg PO TID PRN Clopidogrel [Plavix] 75 mg PO BEDTIME Donepezil [Aricept] 10 mg PO BEDTIME Patient's Own Medication [Ptom] 0 each TOP BID Phenytoin 200 mg PO BEDTIME 06/14/17 09:00 Aspirin 81 mg PO DAILY Celecoxib [CeleBREX] 100 mg PO DAILY Isosorbide Mononitrate [Imdur] 30 mg PO DAILY Magnesium Oxide 400 mg PO DAILY Pantoprazole [ProTONIX] 40 mg PO DAILY Sertraline [Zoloft] 50 mg PO DAILY Tamsulosin [Flomax] 0.4 mg PO DAILY 06/15/17 05:11 CRP [C-REACTIVE PROTEIN] [CHEM] AM 06/16/17 05:11 CRP [C-REACTIVE PROTEIN] [CHEM] AM 06/17/17 05:11 CRP [C-REACTIVE PROTEIN] [CHEM] AM - Plan Plan:: Assessment/Plan: Acute: Near Syncopal Episode - Vasovagal but could be Multi-factorial: Poor oral intake, recent illness with bronchitis, dehydration, hypotension, bradycardia,polypharmacy +/- cardiac in etiology - EKG sows no acute ST-T wave changes - HR on presentation 53; BP documented 70/40 mmHg - Head CT scan/Chest and Abdominal XR all shows no acute abnormal findings - Cervical CT scan report reads diffuse degenerative changes. 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 Galvan Likely discharge in 1-2 days pending SNF placement
[2017-06-14] MEDS: EFUDEX TOP SCH ×2 (18:53→21:56)
[2017-06-14] MEDS: Acetaminophen 325 MG Tab PO PRN (18:59)
[2017-06-14] MEDS: Phenytoin 100 MG Cap.ER PO SCH (21:57)
[2017-06-14] MEDS: Donepezil 10 MG Tab PO SCH (21:57)
[2017-06-14] MEDS: Clopidogrel 75 MG Tab PO SCH (21:59)
[2017-06-15] MEDS: guaiFENesin/Dextromethorphan 100-10 MG/5 ML Soln 5 ML Cup PO PRN ×2 (00:32→20:39)
[2017-06-15] MEDS: Benzonatate 100 MG Cap PO PRN ×2 (00:32→20:39)
[2017-06-15] MEDS: EFUDEX TOP SCH ×3 (00:42→20:41)
[2017-06-15] MEDS: hydrALAZINE 20 MG/ML SDV IVPUSH PRN ×2 (01:15→06:29)
[2017-06-15] MEDS: Acetaminophen 325 MG Tab PO PRN (06:28)
[2017-06-15] MEDS: Aspirin 81 MG Tab.Chew PO SCH (08:21)
[2017-06-15] MEDS: Magnesium Oxide 400 MG Tab PO SCH (08:21)
[2017-06-15] MEDS: Sertraline 50 MG Tab PO SCH (08:21)
[2017-06-15] MEDS: Pantoprazole 40 MG Tab.CR PO SCH (08:21)
[2017-06-15] MEDS: Tamsulosin 0.4 MG Cap.ER PO SCH (08:21)
[2017-06-15] MEDS: Enoxaparin 40 MG/0.4 ML Syringe SUBCUT SCH (08:21)
[2017-06-15] MEDS: Isosorbide Mononitrate 30 MG Tab.ER PO SCH (08:21)
[2017-06-15] MEDS ORDERED: Losartan 100 MG Tab PO SCH (09:00)
[2017-06-15] MEDS ORDERED: Hydrochlorothiazide 25 MG Tab PO SCH (09:00)
[2017-06-15] MEDS: Metoprolol Tartrate 5 MG/5 ML SDV IVPUSH PRN ×2 (09:53→17:22)
[2017-06-15] MEDS: Lisinopril 2.5 MG Tab PO SCH (11:54)
[2017-06-15] MEDS: Acetaminophen/HYDROcodone 325-5 MG Tab PO PRN ×2 (14:43→20:40)
[2017-06-15] MEDS ORDERED: Potassium Chloride 20 MEQ Tab.ER PO ONE (17:00)
--- NOTE | 2017-06-15 19:10 | PCM.PN ---
- General Info Date of Service: 06/15/17 Admission Dx/Problem (Free Text): Admission Diagnosis/Problem Admission Diagnosis/Problem Weakness of both lower extremities Subjective Update: In to see Ishan. he is doing much better today. His cough is improved to resolved. he still states that he feels quite weak but is improved on admission. home blood pressure medications. There was somewhat of a mixup as he did have a medication listed on his home med list which was not his. This was given once. It did lead to some bradycardia and hypotension which quickly resolved. I did order a viral panel on him due to his cough. Mycoplasma pneumonia was ordered and is negative. He will likely be discharged home tomorrow. Nursing has no other concerns or complaints. Patient has no other concerns or complaints. pT and OT are both recommending continued treatment once discharged to SNF. They are recommending front wheeled walker as well Functional Status: Reports: Pain Controlled, Tolerating Diet, Ambulating, Urinating, Incentive Spirometry. Denies: New Symptoms - Review of Systems General: Reports: Weakness (improving ), Fatigue, Malaise. Denies: Fever, Chills HEENT: Reports: No Symptoms Pulmonary: Reports: Cough (improving to resolved ), Sputum (some redness in color ). Denies: Shortness of Breath Cardiovascular: Reports: No Symptoms. Denies: Chest Pain, Dyspnea on Exertion, Edema Gastrointestinal: Reports: No Symptoms. Denies: Abdominal Pain, Constipation, Diarrhea, Nausea, Vomiting Genitourinary: Reports: No Symptoms Musculoskeletal: Reports: No Symptoms Skin: Reports: No Symptoms Neurological: Reports: Difficulty Walking, Weakness, Gait Disturbance Psychiatric: Reports: No Symptoms - Patient Data Vitals - Most Recent: Last Vital Signs Temp 98.4 F 06/15/17 15:34 Pulse 124 H 06/15/17 17:22 Resp 32 H 06/15/17 15:34 BP 163/63 H 06/15/17 17:22 Pulse Ox 96 06/15/17 15:34 Weight - Most Recent: 161 lb 4.8 oz I&O - Last 24 Hours: Intake & Output 06/15/17 06/15/17 06/15/17 06:59 14:59 22:59 Intake Total 400 180 200 Output Total 650 Balance -250 180 200 Lab Results Last 24 Hours: Laboratory Results - last 24 hr 06/15/17 06/15/17 06/15/17 Range/Units 05:50 05:50 15:17 WBC 5.57 (4.23-9.07) K/mm3 RBC 4.40 L (4.63-6.08) M/mm3 Hgb 14.6 (13.7-17.5) gm/L Hct 41.6 (40.1-51.0) % MCV 94.5 H (79.0-92.2) fl MCH 33.2 H (25.7-32.2) pg MCHC 35.1 (32.2-35.5) g/dl RDW Std Deviation 46.1 H (35.1-43.9) fL Plt Count 150 L (163-337) K/mm3 MPV 11.6 (9.4-12.3) fl Neut % (Auto) 58.5 (34.0-67.9) % Lymph % (Auto) 22.8 (21.8-53.1) % [place] % (Auto) 12.0 (5.3-12.2) % Eos % (Auto) 6.3 (0.8-7.0) Baso % (Auto) 0.2 (0.1-1.2) % Neut # (Auto) 3.26 (1.78-5.38) K/mm3 Lymph # (Auto) 1.27 L (1.32-3.57) K/mm3 [place] # (Auto) 0.67 (0.30-0.82) K/mm3 Eos # (Auto) 0.35 (0.04-0.54) K/mm3 Baso # (Auto) 0.01 (0.01-0.08) K/mm3 Sodium 146 H (136-145) mEq/L Potassium 3.8 (3.5-5.1) mEq/L Chloride 110 H (98-107) mEq/L Carbon Dioxide 25 (21-32) mEq/L Anion Gap 14.8 (5-15) BUN 19 H (7-18) mg/dL Creatinine 0.8 (0.7-1.3) mg/dL Est Cr Clr Drug Dosing 68.74 mL/min Estimated GFR (MDRD) > 60 (>60) mL/min BUN/Creatinine Ratio 23.8 H (14-18) Glucose 115 (83-115) mg/dL Calcium 9.2 (8.5-10.1) mg/dL Magnesium 2.1 (1.8-2.4) mg/dl C-Reactive Protein 2.6 H* (<1.0) mg/dL Mycoplasma pneumon IgM Negative (NEGATIVE) Med Orders - Current: Current Medications Acetaminophen (Tylenol) 650 mg PO Q4H PRN PRN Reason: Pain (Mild 1-3)/fever Last Admin: 06/15/17 06:28 Dose: 650 mg Hydrocodone Bitart/Acetaminophen ([place] 325-5 Mg) 1 tab PO Q4H PRN PRN Reason: Pain (moderate 4-6) Last Admin: 06/15/17 14:43 Dose: 1 tab Albuterol/Ipratropium (Duoneb 3.0-0.5 Mg/3 Ml) 3 ml NEB Q4H PRN PRN Reason: Shortness Of Breath/wheezing Last Admin: 06/12/17 03:24 Dose: 3 ml Aspirin (Aspirin) 81 mg PO DAILY [facility] Last Admin: 06/15/17 08:21 Dose: 81 mg Benzonatate (Tessalon Perles) 200 mg PO TID PRN PRN Reason: COUGH Last Admin: 06/15/17 00:32 Dose: 200 mg Bisacodyl (Dulcolax) 5 mg PO DAILY PRN PRN Reason: Constipation Clopidogrel Bisulfate (Plavix) 75 mg PO BEDTIME [facility] Last Admin: 06/14/17 21:59 Dose: 75 mg Docusate Sodium (Colace) 100 mg PO BID PRN PRN Reason: Constipation Donepezil HCl (Aricept) 10 mg PO BEDTIME [facility] Last Admin: 06/14/17 21:57 Dose: 10 mg Enoxaparin Sodium (Lovenox) 40 mg SUBCUT DAILY [facility] Last Admin: 06/15/17 08:21 Dose: 40 mg Guaifenesin/Phenylephrine HCl (Robitussin Dm) 5 ml PO Q4H PRN PRN Reason: Cough Last Admin: 06/15/17 00:32 Dose: 5 ml Hydralazine HCl (Apresoline) 10 mg IVPUSH Q4H PRN PRN Reason: Hypertension Last Admin: 06/15/17 06:29 Dose: 10 mg Hydromorphone HCl (Dilaudid) 0.25 mg IVPUSH Q2H PRN PRN Reason: Pain (severe 7-10) Promethazine HCl 6.25 mg/ (Sodium Chloride) 50.25 mls @ 100 mls/hr IV Q6H PRN PRN Reason: Nausea/Vomiting Isosorbide Mononitrate (Imdur) 30 mg PO DAILY [facility] Last Admin: 06/15/17 08:21 Dose: 30 mg Lisinopril (Prinivil) 2.5 mg PO DAILY [facility] Last Admin: 06/15/17 11:54 Dose: Not Given Lorazepam (Ativan) 2 mg IVPUSH Q4H PRN PRN Reason: Seizures Lorazepam (Ativan) 0.25 mg IV Q6H PRN PRN Reason: Anxiety Magnesium Oxide (Magnesium Oxide) 400 mg PO DAILY [facility] Last Admin: 06/15/17 08:21 Dose: 400 mg Magnesium Sulfate (Pharmacy To Dose - Magnesium Replacement) 1 dose .XX ASDIRECTED [facility] Metoprolol Tartrate (Lopressor) 5 mg IVPUSH Q4H PRN PRN Reason: Tachycardia Last Admin: 06/15/17 17:22 Dose: 5 mg Nitroglycerin (Nitrostat) 0.4 mg SL ASDIRECTED PRN PRN Reason: Chest Pain Ondansetron HCl (Zofran) 4 mg IV Q6H PRN PRN Reason: Nausea/Vomiting Pantoprazole Sodium (Protonix) 40 mg PO DAILY [facility] Last Admin: 06/15/17 08:21 Dose: 40 mg Efudex 5% Cream 0 each TOP BID [facility] Last Admin: 06/15/17 08:22 Dose: Not Given Phenytoin Sodium (Phenytoin) 200 mg PO BID [facility] Polyethylene Glycol (Miralax) 17 gm PO DAILY PRN PRN Reason: Constipation Last Admin: 06/12/17 13:35 Dose: 17 gm Potassium Chloride (Pharmacy To Dose - Potassium Replacement) 1 dose .XX ASDIRECTED [facility] Senna/Docusate Sodium (Senna Plus) 1 tab PO BID PRN PRN Reason: Constipation Last Admin: 06/14/17 08:43 Dose: 1 tab Sertraline HCl (Zoloft) 50 mg PO DAILY [facility] Last Admin: 06/15/17 08:21 Dose: 50 mg Sodium Chloride (Saline Flush) 10 ml FLUSH ONETIME PRN PRN Reason: IV FLUSH Last Admin: 06/11/17 16:08 Dose: 10 ml Tamsulosin HCl (Flomax) 0.4 mg PO DAILY [facility] Last Admin: 06/15/17 08:21 Dose: 0.4 mg Temazepam (Restoril) 7.5 mg PO BEDTIME PRN PRN Reason: Sleep Last Admin: 06/12/17 21:10 Dose: 7.5 mg Discontinued Medications Benzonatate (Tessalon Perles) 200 mg PO TID [facility] Last Admin: 06/13/17 08:25 Dose: 200 mg Benzonatate (Tessalon Perles) 200 mg PO BID PRN PRN Reason: Cough Celecoxib (Celebrex) 100 mg PO DAILY [facility] Last Admin: 06/14/17 08:43 Dose: 100 mg Famotidine (Pepcid) 20 mg PO BEDTIME [facility] Last Admin: 06/13/17 22:31 Dose: 20 mg Hydrochlorothiazide (Hydrochlorothiazide) 25 mg PO DAILY [facility] Last Admin: 06/15/17 08:21 Dose: 25 mg Sodium Chloride (Normal Saline) 1,000 mls @ 150 mls/hr IV ASDIRECTED [facility] Last Admin: 06/11/17 22:51 Dose: 999 mls/hr Sodium Chloride (Normal Saline) 100 mls @ 75 mls/hr IV ASDIRECTED [facility] Last Admin: 06/11/17 16:08 Dose: 75 mls/hr Sodium Chloride (Normal Saline) 1,000 mls @ 75 mls/hr IV ASDIRECTED [facility] Last Admin: 06/13/17 16:37 Dose: 75 mls/hr Iopamidol (Isovue-370 (76%)) 100 ml IVPUSH ONETIME ONE Stop: 06/11/17 15:54 Last Admin: 06/11/17 16:07 Dose: 80 ml Lisinopril (Prinivil) 2.5 mg PO DAILY [facility] Losartan Potassium (Cozaar) 100 mg PO DAILY [facility] Last Admin: 06/15/17 08:22 Dose: 100 mg Metoprolol Tartrate (Lopressor) 25 mg PO BID [facility] Metoprolol Tartrate (Lopressor) 25 mg PO BID [facility] Midodrine (Midodrine) 5 mg PO TIDAC [facility] Last Admin: 06/13/17 08:34 Dose: Not Given Non-Formulary Medication (Metoprolol Succinate) 1 tab PO DAILY [facility] Non-Formulary Medication (Valsartan/Hydrochlorothiazide [Diovan Hct 160-25 Mg Tablet]) 25 - 160 mg PO DAILY [facility] Last Admin: 06/14/17 23:29 Dose: Not Given Phenytoin Sodium (Phenytoin) 200 mg PO BEDTIME [facility] Last Admin: 06/14/17 21:57 Dose: 200 mg Potassium Chloride (Klor-Con M20) 40 meq PO Q4H JERARDO Stop: 06/14/17 12:01 Last Admin: 06/14/17 11:37 Dose: 40 meq Potassium Chloride (Klor-Con M20) 20 meq PO ONETIME ONE Stop: 06/15/17 17:01 Last Admin: 06/15/17 17:24 Dose: 20 meq - Exam Quality Assessment: DVT Prophylaxis General: Alert, Oriented, Cooperative, No Acute Distress HEENT: Pupils Equal, Pupils Reactive, EOMI, Mucous Membr. Moist/[place] Neck: Supple, Trachea Midline Lungs: Clear to Auscultation, Normal Respiratory Effort, Decreased Breath Sounds Cardiovascular: Regular Rate, Irregular Rhythm (frequent PVC's ) GI/Abdominal Exam: Normal Bowel Sounds, Soft, Non-Tender, No Organomegaly, No Distention, No Abnormal Bruit, No Mass, Pelvis Stable Back Exam: Normal Inspection, Full Range of Motion Extremities: Normal Inspection, Normal Range of Motion, Non-Tender, No Pedal Edema, Normal Capillary Refill Peripheral Pulses: 2+: Radial (L), Radial (R), Posterior Tibial (L), Posterior Tibial (R), Dorsalis Pedis (L), Dorsalis Pedis (R) - Problem List & Annotations (1) Dehydration SNOMED Code(s): 94209916 Code(s): E86.0 - DEHYDRATION Status: Acute Current Visit: Yes (2) Generalized weakness SNOMED Code(s): 63552675 Code(s): R53.1 - WEAKNESS Status: Acute Current Visit: Yes (3) Vasovagal episode SNOMED Code(s): 580310662 Code(s): R55 - SYNCOPE AND COLLAPSE Status: Acute Priority: High Current Visit: Yes (4) CAD (coronary artery disease) SNOMED Code(s): 38969643 Code(s): I25.10 - ATHSCL HEART DISEASE OF [place] CORONARY ARTERY W/O ANG PCTRS Status: Chronic Priority: Medium Current Visit: No Qualifiers: Coronary Disease-Associated Artery/Lesion type: unspecified vessel or lesion type [place] vs. transplanted heart: unspecified whether [place] or transplanted heart Associated angina: angina presence unspecified Qualified Code(s): I25.10 - Atherosclerotic heart disease of [place] coronary artery without angina pectoris (5) GERD (gastroesophageal reflux disease) SNOMED Code(s): 711208555 Code(s): K21.9 - GASTRO-ESOPHAGEAL REFLUX DISEASE WITHOUT ESOPHAGITIS Status: Chronic Priority: Low Current Visit: No Qualifiers: Esophagitis presence: esophagitis presence not specified Qualified Code(s) : K21.9 - Gastro-esophageal reflux disease without esophagitis (6) Dementia SNOMED Code(s): 72033224 Code(s): F03.90 - UNSPECIFIED DEMENTIA WITHOUT BEHAVIORAL DISTURBANCE Status: Chronic Priority: Medium Current Visit: Yes Qualifiers: Dementia type: Alzheimer's disease Alzheimer's disease onset: unspecified onset Dementia behavioral disturbance: without behavioral disturbance Qualified Code(s): G30.9 - Alzheimer's disease, unspecified; F02.80 - Dementia in other diseases classified elsewhere without behavioral disturbance; F02.80 - Dementia in other diseases classified elsewhere without behavioral disturbance; F02.80 - Dementia in other diseases classified elsewhere without behavioral disturbance - Problem List Review Problem List Initiated/Reviewed/Updated: Yes - My Orders Last 24 Hours: My Active Orders 06/15/17 10:15 Lisinopril [Prinivil] 2.5 mg PO DAILY 06/15/17 17:45 RESPIRATORY PANEL BY PCR [MREF] Routine 06/15/17 18:45 STREP PNEUMONIAE ANTIGEN [MREF] Routine 06/15/17 21:00 Phenytoin 200 mg PO BID 06/16/17 05:11 CRP [C-REACTIVE PROTEIN] [CHEM] AM 06/17/17 05:11 CRP [C-REACTIVE PROTEIN] [CHEM] AM - Plan Plan:: Assessment/Plan: Acute: Near Syncopal Episode - Vasovagal but could be Multi-factorial: Poor oral intake, recent illness with bronchitis, dehydration, hypotension, bradycardia,polypharmacy +/- cardiac in etiology - EKG sows no acute ST-T wave changes - HR on presentation 53; BP documented 70/40 mmHg - Head CT scan/Chest and Abdominal XR all shows no acute abnormal findings - Cervical CT scan report reads diffuse degenerative changes. Nothing acute is identified - Hold BP Meds--> restart now - 2D echo 06/14/17 to assess cardiac function - EF 45-50%. Mildly decreased left ventricular syst Grade 2 LV diastolic filling. Left ventricular internal cavity size dilated Mild INF basal hypokinesia Mild reduced RV systolic function. Moderately dilated left atrium. 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 - Large hiatal hernia, on PPI Polypharmacy -Review home meds Hypertension -On multiple home meds which were held initially -There were some medication errors - pharmacy reviewed -Restart daily meds -Continue to monitor Resolved: Mild Leukocytosis -WBC 10.03-->10.59-->10.73-->7.73 -CRP 4.4 -CXR negative for acute findings -UA was negative on admission -Monitor Chronic: Impaired 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 Galvan Likely discharge tomorrow AM to SNF
[2017-06-15] MEDS: Phenytoin 100 MG Cap.ER PO SCH (20:39)
[2017-06-15] MEDS: Metoprolol Tartrate 25 MG Tab PO SCH (20:39)
[2017-06-15] MEDS: Clopidogrel 75 MG Tab PO SCH (20:41)
[2017-06-15] MEDS: Donepezil 10 MG Tab PO SCH (20:45)
[2017-06-15] MEDS ORDERED: Metoprolol Tartrate 25 MG Tab PO SCH (21:00)
--- NOTE | 2017-06-16 06:17 | PCM.DCSUM1 ---
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 Patient got dizzy and fell upon standing but denies losing consciousness. He denies tongue bite/laceration, loss of bladder or bowel incontinence. Patient is not diabetes. However he was found weak with unsteady gait. According to ED notes, patient had a considerably low blood pressure of 70/40 mm per mercury with a heart rate of 50 bpm. And at that time, he was found pale but not diaphoretic. He carries no history of anemia or GI bleed and reports no black tarry stool or melena. Patient denies any chest pain, shortness of breath or any other GI symptoms. No complains of neurological deficits. Upon presentation to the emergency department, his blood pressure was noted at 115/62 mm per mercury, a heart rate of 53 bpm and an O2 sat of 90% on room air. His initial workup in the emergency department shows a CBC remarkable for WBC of 10.03, RBC of 4.53, MCV of 93.8, MCH of 33.3, RDW of 44.5, neutrophils of 82.6%, lymphocytes of 8.8%, and eosinophils of 0.4%. His coagulation studies show PT of 13.3, INR of 129, APTT of 30, and d-dimer of 21.47. His Chemistry is remarkable for anion gap of 16.1, BUN of 30, glucose of 155, and total protein of 6.1. His UA is not suggestive of urinary tract infection. His chest/ abdominal x-ray show no acute abnormal findings. Cervical Spine and Head CT both show no acute abnormal findings. Chest CTA shows large hiatal hernia, no pulmonary embolism, but 2 bypass graft aneurysm. Patient is being admitted for near syncope secondary to vasovagal. He is DNR/ DNI. - Discharge Data Discharge Date: 06/16/17 Discharge Disposition: DC/Tfer to SNF 03 Condition: Fair - Discharge Diagnosis/Problem(s) (1) Vasovagal episode SNOMED Code(s): 314752767 ICD Code: R55 - SYNCOPE AND COLLAPSE Status: Resolved Priority: High Current Visit: Yes (2) Poor appetite SNOMED Code(s): 76851348 ICD Code: R63.0 - ANOREXIA Status: Acute Priority: High Current Visit: Yes (3) Generalized weakness SNOMED Code(s): 81651555 ICD Code: R53.1 - WEAKNESS Status: Acute Priority: High Current Visit: Yes (4) Bronchitis SNOMED Code(s): 29427494 ICD Code: J40 - BRONCHITIS, NOT SPECIFIED ACUTE OR CHRONIC Status: Resolved Priority: Medium Current Visit: Yes (5) Dehydration SNOMED Code(s): 95912763 ICD Code: E86.0 - DEHYDRATION Status: Resolved Priority: High Current Visit: Yes (6) CAD (coronary artery disease) SNOMED Code(s): 43635358 ICD Code: I25.10 - ATHSCL HEART DISEASE OF [place] CORONARY ARTERY W/O ANG PCTRS Status: Chronic Priority: Medium Current Visit: No Qualifiers: Coronary Disease-Associated Artery/Lesion type: unspecified vessel or lesion type [place] vs. transplanted heart: unspecified whether [place] or transplanted heart Associated angina: angina presence unspecified Qualified Code(s): I25.10 - Atherosclerotic heart disease of [place] coronary artery without angina pectoris (7) GERD (gastroesophageal reflux disease) SNOMED Code(s): 341055894 ICD Code: K21.9 - GASTRO-ESOPHAGEAL REFLUX DISEASE WITHOUT ESOPHAGITIS Status: Chronic Priority: Low Current Visit: No Qualifiers: Esophagitis presence: esophagitis presence not specified Qualified Code(s) : K21.9 - Gastro-esophageal reflux disease without esophagitis (8) Dementia SNOMED Code(s): 27764234 ICD Code: F03.90 - UNSPECIFIED DEMENTIA WITHOUT BEHAVIORAL DISTURBANCE Status: Chronic Priority: Medium Current Visit: Yes Qualifiers: Dementia type: Alzheimer's disease Alzheimer's disease onset: unspecified onset Dementia behavioral disturbance: without behavioral disturbance Qualified Code(s): G30.9 - Alzheimer's disease, unspecified; F02.80 - Dementia in other diseases classified elsewhere without behavioral disturbance; F02.80 - Dementia in other diseases classified elsewhere without behavioral disturbance; F02.80 - Dementia in other diseases classified elsewhere without behavioral disturbance - Patient Summary/Data Operative Procedure(s) Performed: None Complications: None Consults: PT/OT Labs Pending at D/C: None Recommended Follow-up Testing/Procedures: Patient DC instructions: Therapies recommending discharge to [facility] with physical therapy and occupational therapy to evaluate and treat. Consider Cardiology eval as outpatient-- discuss with PCP, Dr. Galvan Follow up with Dr. Galvan within one week of discharge. Planned Operative Procedure(s) after DC: None Hospital Course: Assessment/Plan: Acute: Near Syncopal Episode - Vasovagal but could be Multi-factorial: Poor oral intake, recent illness with bronchitis, dehydration, hypotension, bradycardia,polypharmacy +/- cardiac in etiology - initial EKG shows no acute ST-T wave changes - HR on presentation to ED 53; BP documented 70/40 mmHg--VSS now - Head CT scan/Chest and Abdominal XR all shows no acute abnormal findings - Cervical CT scan report reads diffuse degenerative changes. Nothing acute is identified - Hold BP Meds--> restarted and tolerating without hypotension - 2D echo 06/14/17 to assess cardiac function - EF 45-50%. Mildly decreased left ventricular syst Grade 2 LV diastolic filling. Left ventricular internal cavity size dilated Mild INF basal hypokinesia Mild reduced RV systolic function. Moderately dilated left atrium. Mild aortic and mitral valve regurg Mild dilation of the ascending aorta Generalized weakness -PT/OT - recommending continued treatment at SNF and [facility] -Viral panel, Strep pneumonia pending; Negative Mycoplasma pneumonia -Optimize home medications -Discharge to SNF tomorrow for continued care Elevated D-Dimer - D-Dimer 21.47; Chest CTA negative for PE or other acute findings CTA abnormal findings - 2 bypass graft aneurysm- recommend cardiology eval after discharge-- discuss with PCP. 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 GI/DVT prophylaxis Code status: DNR/DNI PCP: Dr. Galvan - Patient Instructions Diet: Heart Healthy Diet, Usual Diet as Tolerated, Drink 8-10+ Glasses/Day Activity: As Tolerated (Cont PT/OT at [facility]) Driving: Do Not Drive Showering/Bathing: May Shower Notify Provider of: Fever, Increased Pain, Nausea and/or Vomiting - Discharge Plan Prescriptions/Med Rec: Dextromethorphan/guaiFENesin [Robitussin DM] 5 ml PO Q4H PRN #120 ml PRN Reason: Cough Home Medications: Home Meds Albuterol/Ipratropium [Combivent] 2 puff INH QID 09/12/13 [History] Alfuzosin [Uroxatral] 10 mg PO DAILY 09/12/13 [History] Aspirin [Jenny Chewable Aspirin] 81 mg PO DAILY 09/12/13 [History] Clopidogrel [Plavix] 75 mg PO BEDTIME 09/12/13 [History] Isosorbide Mononitrate [Isosorbide Mononitrate ER] 30 mg PO DAILY 09/12/13 [ History] Leuprolide [Lupron Depot 4-Month] 45 mg IM ASDIRECTED 09/12/13 [History] Lisinopril [Prinivil] 2.5 mg PO DAILY 09/12/13 [History] Magnesium Oxide 400 mg PO DAILY 09/12/13 [History] Nitroglycerin [Nitrostat] 0.4 mg SL ASDIRECTED PRN 09/12/13 [History] Phenytoin Sodium Extended [Dilantin] 200 mg PO BID 09/12/13 [History] Ranitidine [Zantac] 150 mg PO BEDTIME 09/12/13 [History] Sertraline HCl [Zoloft] 50 mg PO DAILY 09/12/13 [History] Pantoprazole [ProTONIX] 40 mg PO DAILY 02/14/16 [History] Celecoxib [CeleBREX] 100 mg PO DAILY 06/09/17 [History] Donepezil HCl 10 mg PO BEDTIME 06/09/17 [History] Polyethylene Glycol 3350 [MiraLAX] 17 gm PO DAILY 06/09/17 [History] Benzonatate 200 mg PO TID PRN 06/11/17 [History] Non-Formulary Medication [NF Drug] 1 applic TOP BID 06/13/17 [History] Rosuvastatin [Crestor] 20 mg PO BEDTIME 06/13/17 [History] Metoprolol Tartrate 25 mg PO BID 06/15/17 [History] Acetaminophen [Tylenol] 650 mg PO Q4H PRN #0 tablet 06/16/17 [Rx] Dextromethorphan/guaiFENesin [Robitussin DM] 5 ml PO Q4H PRN #120 ml 06/16/17 [ Rx] Patient Handouts: Weakness, [id number], Dementia, [id number], Syncope, Easy -to-Read Referrals: Joel Galvan MD [Primary Care Provider] - (Please call and schedule a post- hospital follow-up appointment with your PCP, Dr. Galvan, in 7 to 10 days. ) - Discharge Summary/Plan Comment DC Time >30 min.: Yes (45 min) - General Info Date of Service: 06/16/17 Admission Dx/Problem (Free Text: Vasovagal syncope Doing well this morning, nursing reported good night and no overnight concerns. Plans to DC to SNF this morning. Functional Status: Reports: Pain Controlled, Tolerating Diet. Denies: New Symptoms - Review of Systems General: Reports: Weakness (improved). Denies: Fever HEENT: Reports: No Symptoms Pulmonary: Reports: No Symptoms. Denies: Shortness of Breath, Cough Cardiovascular: Reports: No Symptoms. Denies: Chest Pain, Palpitations Gastrointestinal: Reports: No Symptoms. Denies: Diarrhea, Nausea, Vomiting Neurological: Reports: Confusion (baseline dementia) Psychiatric: Reports: Confusion (baseline dementia) - Patient Data Vitals - Most Recent: Last Vital Signs Temp 97.5 F 06/15/17 20:12 Pulse 78 06/16/17 04:20 Resp 20 06/16/17 04:18 BP 141/73 H 06/16/17 04:20 Pulse Ox 95 06/16/17 04:20 Weight - Most Recent: 159 lb 8 oz I&O - Last 24 hours: Intake & Output 06/15/17 06/15/17 06/16/17 14:59 22:59 06:59 Intake Total 180 200 200 Output Total 575 Balance 180 200 -375 Lab Results - Last 24 hrs: Laboratory Results - last 24 hr 06/15/17 06/15/17 06/15/17 Range/Units 05:50 05:50 15:17 WBC 5.57 (4.23-9.07) K/mm3 RBC 4.40 L (4.63-6.08) M/mm3 Hgb 14.6 (13.7-17.5) gm/L Hct 41.6 (40.1-51.0) % MCV 94.5 H (79.0-92.2) fl MCH 33.2 H (25.7-32.2) pg MCHC 35.1 (32.2-35.5) g/dl RDW Std Deviation 46.1 H (35.1-43.9) fL Plt Count 150 L (163-337) K/mm3 MPV 11.6 (9.4-12.3) fl Neut % (Auto) 58.5 (34.0-67.9) % Lymph % (Auto) 22.8 (21.8-53.1) % [place] % (Auto) 12.0 (5.3-12.2) % Eos % (Auto) 6.3 (0.8-7.0) Baso % (Auto) 0.2 (0.1-1.2) % Neut # (Auto) 3.26 (1.78-5.38) K/mm3 Lymph # (Auto) 1.27 L (1.32-3.57) K/mm3 [place] # (Auto) 0.67 (0.30-0.82) K/mm3 Eos # (Auto) 0.35 (0.04-0.54) K/mm3 Baso # (Auto) 0.01 (0.01-0.08) K/mm3 Sodium 146 H (136-145) mEq/L Potassium 3.8 (3.5-5.1) mEq/L Chloride 110 H (98-107) mEq/L Carbon Dioxide 25 (21-32) mEq/L Anion Gap 14.8 (5-15) BUN 19 H (7-18) mg/dL Creatinine 0.8 (0.7-1.3) mg/dL Est Cr Clr Drug Dosing 68.74 mL/min Estimated GFR (MDRD) > 60 (>60) mL/min BUN/Creatinine Ratio 23.8 H (14-18) Glucose 115 (83-115) mg/dL Calcium 9.2 (8.5-10.1) mg/dL Magnesium 2.1 (1.8-2.4) mg/dl C-Reactive Protein 2.6 H* (<1.0) mg/dL Mycoplasma pneumon IgM Negative (NEGATIVE) Med Orders - Current: Current Medications Acetaminophen (Tylenol) 650 mg PO Q4H PRN PRN Reason: Pain (Mild 1-3)/fever Last Admin: 06/15/17 06:28 Dose: 650 mg Hydrocodone Bitart/Acetaminophen ([place] 325-5 Mg) 1 tab PO Q4H PRN PRN Reason: Pain (moderate 4-6) Last Admin: 06/15/17 20:40 Dose: 1 tab Albuterol/Ipratropium (Duoneb 3.0-0.5 Mg/3 Ml) 3 ml NEB Q4H PRN PRN Reason: Shortness Of Breath/wheezing Last Admin: 06/12/17 03:24 Dose: 3 ml Aspirin (Aspirin) 81 mg PO DAILY [facility] Last Admin: 06/15/17 08:21 Dose: 81 mg Benzonatate (Tessalon Perles) 200 mg PO TID PRN PRN Reason: COUGH Last Admin: 06/15/17 20:39 Dose: 200 mg Bisacodyl (Dulcolax) 5 mg PO DAILY PRN PRN Reason: Constipation Clopidogrel Bisulfate (Plavix) 75 mg PO BEDTIME [facility] Last Admin: 06/15/17 20:41 Dose: 75 mg Docusate Sodium (Colace) 100 mg PO BID PRN PRN Reason: Constipation Donepezil HCl (Aricept) 10 mg PO BEDTIME [facility] Last Admin: 06/15/17 20:45 Dose: 10 mg Enoxaparin Sodium (Lovenox) 40 mg SUBCUT DAILY [facility] Last Admin: 06/15/17 08:21 Dose: 40 mg Guaifenesin/Phenylephrine HCl (Robitussin Dm) 5 ml PO Q4H PRN PRN Reason: Cough Last Admin: 06/15/17 20:39 Dose: 5 ml Hydralazine HCl (Apresoline) 10 mg IVPUSH Q4H PRN PRN Reason: Hypertension Last Admin: 06/15/17 06:29 Dose: 10 mg Hydromorphone HCl (Dilaudid) 0.25 mg IVPUSH Q2H PRN PRN Reason: Pain (severe 7-10) Promethazine HCl 6.25 mg/ (Sodium Chloride) 50.25 mls @ 100 mls/hr IV Q6H PRN PRN Reason: Nausea/Vomiting Isosorbide Mononitrate (Imdur) 30 mg PO DAILY [facility] Last Admin: 06/15/17 08:21 Dose: 30 mg Lisinopril (Prinivil) 2.5 mg PO DAILY [facility] Last Admin: 06/15/17 11:54 Dose: Not Given Lorazepam (Ativan) 2 mg IVPUSH Q4H PRN PRN Reason: Seizures Lorazepam (Ativan) 0.25 mg IV Q6H PRN PRN Reason: Anxiety Magnesium Oxide (Magnesium Oxide) 400 mg PO DAILY [facility] Last Admin: 06/15/17 08:21 Dose: 400 mg Magnesium Sulfate (Pharmacy To Dose - Magnesium Replacement) 1 dose .XX ASDIRECTED [facility] Metoprolol Tartrate (Lopressor) 5 mg IVPUSH Q4H PRN PRN Reason: Tachycardia Last Admin: 06/15/17 17:22 Dose: 5 mg Metoprolol Tartrate (Lopressor) 25 mg PO BID [facility] Last Admin: 06/15/17 20:39 Dose: 25 mg Nitroglycerin (Nitrostat) 0.4 mg SL ASDIRECTED PRN PRN Reason: Chest Pain Ondansetron HCl (Zofran) 4 mg IV Q6H PRN PRN Reason: Nausea/Vomiting Pantoprazole Sodium (Protonix) 40 mg PO DAILY [facility] Last Admin: 06/15/17 08:21 Dose: 40 mg Efudex 5% Cream 0 each TOP BID [facility] Last Admin: 06/15/17 20:41 Dose: Not Given Phenytoin Sodium (Phenytoin) 200 mg PO BID [facility] Last Admin: 06/15/17 20:39 Dose: 200 mg Polyethylene Glycol (Miralax) 17 gm PO DAILY PRN PRN Reason: Constipation Last Admin: 06/12/17 13:35 Dose: 17 gm Potassium Chloride (Pharmacy To Dose - Potassium Replacement) 1 dose .XX ASDIRECTED [facility] Senna/Docusate Sodium (Senna Plus) 1 tab PO BID PRN PRN Reason: Constipation Last Admin: 06/14/17 08:43 Dose: 1 tab Sertraline HCl (Zoloft) 50 mg PO DAILY [facility] Last Admin: 06/15/17 08:21 Dose: 50 mg Sodium Chloride (Saline Flush) 10 ml FLUSH ONETIME PRN PRN Reason: IV FLUSH Last Admin: 06/11/17 16:08 Dose: 10 ml Tamsulosin HCl (Flomax) 0.4 mg PO DAILY [facility] Last Admin: 06/15/17 08:21 Dose: 0.4 mg Temazepam (Restoril) 7.5 mg PO BEDTIME PRN PRN Reason: Sleep Last Admin: 06/12/17 21:10 Dose: 7.5 mg Discontinued Medications Benzonatate (Tessalon Perles) 200 mg PO TID [facility] Last Admin: 06/13/17 08:25 Dose: 200 mg Benzonatate (Tessalon Perles) 200 mg PO BID PRN PRN Reason: Cough Celecoxib (Celebrex) 100 mg PO DAILY [facility] Last Admin: 06/14/17 08:43 Dose: 100 mg Famotidine (Pepcid) 20 mg PO BEDTIME [facility] Last Admin: 06/13/17 22:31 Dose: 20 mg Hydrochlorothiazide (Hydrochlorothiazide) 25 mg PO DAILY [facility] Last Admin: 06/15/17 08:21 Dose: 25 mg Sodium Chloride (Normal Saline) 1,000 mls @ 150 mls/hr IV ASDIRECTED [facility] Last Admin: 06/11/17 22:51 Dose: 999 mls/hr Sodium Chloride (Normal Saline) 100 mls @ 75 mls/hr IV ASDIRECTED [facility] Last Admin: 06/11/17 16:08 Dose: 75 mls/hr Sodium Chloride (Normal Saline) 1,000 mls @ 75 mls/hr IV ASDIRECTED [facility] Last Admin: 06/13/17 16:37 Dose: 75 mls/hr Iopamidol (Isovue-370 (76%)) 100 ml IVPUSH ONETIME ONE Stop: 06/11/17 15:54 Last Admin: 06/11/17 16:07 Dose: 80 ml Lisinopril (Prinivil) 2.5 mg PO DAILY [facility] Losartan Potassium (Cozaar) 100 mg PO DAILY [facility] Last Admin: 06/15/17 08:22 Dose: 100 mg Metoprolol Tartrate (Lopressor) 25 mg PO BID [facility] Metoprolol Tartrate (Lopressor) 25 mg PO BID [facility] Midodrine (Midodrine) 5 mg PO TIDAC [facility] Last Admin: 06/13/17 08:34 Dose: Not Given Non-Formulary Medication (Metoprolol Succinate) 1 tab PO DAILY [facility] Non-Formulary Medication (Valsartan/Hydrochlorothiazide [Diovan Hct 160-25 Mg Tablet]) 25 - 160 mg PO DAILY [facility] Last Admin: 06/14/17 23:29 Dose: Not Given Phenytoin Sodium (Phenytoin) 200 mg PO BEDTIME [facility] Last Admin: 06/14/17 21:57 Dose: 200 mg Potassium Chloride (Klor-Con M20) 40 meq PO Q4H [facility] Stop: 06/14/17 12:01 Last Admin: 06/14/17 11:37 Dose: 40 meq Potassium Chloride (Klor-Con M20) 20 meq PO ONETIME ONE Stop: 06/15/17 17:01 Last Admin: 06/15/17 17:24 Dose: 20 meq - Exam Quality Assessment: Reports: DVT Prophylaxis General: Reports: Alert, Cooperative, No Acute Distress HEENT: Reports: Pupils Equal, EOMI, Mucous Membr. Moist/Naplate Neck: Reports: Supple Lungs: Reports: Normal Respiratory Effort, Decreased Breath Sounds Cardiovascular: Reports: Regular Rate, Regular Rhythm GI/Abdominal Exam: Normal Bowel Sounds, Soft, Non-Tender (Male) Exam: Deferred Rectal (Males) Exam: Deferred Extremities: Normal Inspection, Normal Capillary Refill Neurological: Reports: No New Focal Deficit Psy/Mental Status: Reports: Alert, Normal Mood *Q Meaningful Use (DIS) - VTE *Q VTE Criteria *Q: - Stroke *Q Stroke Criteria *Q: - AMI *Q AMI Criteria *Q:
[2017-06-16] MEDS: Sertraline 50 MG Tab PO SCH (08:49)
[2017-06-16] MEDS: Aspirin 81 MG Tab.Chew PO SCH (08:50)
[2017-06-16] MEDS: Pantoprazole 40 MG Tab.CR PO SCH (08:50)
[2017-06-16] MEDS: Tamsulosin 0.4 MG Cap.ER PO SCH (08:51)
[2017-06-16] MEDS: Magnesium Oxide 400 MG Tab PO SCH (08:51)
[2017-06-16] MEDS: Enoxaparin 40 MG/0.4 ML Syringe SUBCUT SCH (08:55)
[2017-06-16] MEDS: Phenytoin 100 MG Cap.ER PO SCH (08:55)
[2017-06-16] MEDS ORDERED: Metoprolol Tartrate 25 MG Tab PO SCH (09:00)
[2017-06-16] MEDS: Isosorbide Mononitrate 30 MG Tab.ER PO SCH (09:02)
[2017-06-16] MEDS: Metoprolol Tartrate 25 MG Tab PO SCH (09:04)
[2017-06-16] MEDS: Lisinopril 2.5 MG Tab PO SCH (09:05)
[2017-06-16] MEDS: EFUDEX TOP SCH (09:05)
== END 2017-06-16 10:14 | DRG 312 ==
LOC: SUPCPDRO 13:04 → JD.ED 13:04 → JD.MS 19:03 → OBSVTOIN 06-13 16:14 → JD.MS 06-13 18:28
PROVIDERS: ADMIT Internal Medicine; ATTEND Internal Medicine
DX: R55 Syncope and collapse (principal); I25.810 Atherosclerosis of coronary artery bypass graft(s) without angina pectoris; E86.0 Dehydration; S09.90XA Unspecified injury of head, initial encounter; S19.9XXA Unspecified injury of neck, initial encounter; W18.30XA Fall on same level, unspecified, initial encounter; Y92.002 Bathroom of unspecified non-institutional (private) residence as the place of occurrence of the external cause; J40 Bronchitis, not specified as acute or chronic; D72.828 Other elevated white blood cell count; I72.8 Aneurysm of other specified arteries; R53.1 Weakness; R79.1 Abnormal coagulation profile; I10 Essential (primary) hypertension; Z95.1 Presence of aortocoronary bypass graft; Z95.5 Presence of coronary angioplasty implant and graft; R63.0 Anorexia; I25.2 Old myocardial infarction; K21.9 Gastro-esophageal reflux disease without esophagitis; K44.9 Diaphragmatic hernia without obstruction or gangrene; F10.21 Alcohol dependence, in remission; Z85.46 Personal history of malignant neoplasm of prostate; G30.9 Alzheimer's disease, unspecified; F02.80 Dementia in other diseases classified elsewhere, unspecified severity, without behavioral disturbance, psychotic disturbance, mood disturbance, and anxiety; H91.92 Unspecified hearing loss, left ear; H91.91 Unspecified hearing loss, right ear; H54.7 Unspecified visual loss; Z66 Do not resuscitate; Z88.8 Allergy status to other drugs, medicaments and biological substances; Z79.02 Long term (current) use of antithrombotics/antiplatelets; Z79.82 Long term (current) use of aspirin; Z79.899 Other long term (current) drug therapy
CPT/HCPCS: 36415 ×3; 51701; 51798; 70450; 71275; 72125; 74022; 80048 ×2; 80053; 81001; 83735 ×2; 84484; 85025 ×3; 85379; 85610; 85730; 86140 ×2; 87804 ×2; 93005; 94640; 94760; 96360; 96361; 97116; 97140; 97161; 99285; A9270 ×14; J1650 ×2; J7030; J7040 ×4; J7050; Q9967; 71046; 71046-26; 86738; 87486; 87581; 87633; 87798; 87899; 93306; 97110-GO; 97110-GP; 97166-GO; 97530-GO; 97535-GO; 99220; 99224; 99232; 99239; J0360; J3490

== ENCOUNTER 2017-09-02 14:35 | Emergency (ER) | payer MEDICARE, OTHER ==
[2017-09-02] MEDS ORDERED: Sodium Chloride 0.9% 10 ML Syringe FLUSH PRN (15:17)
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
[2017-09-02] MEDS ORDERED: Acetaminophen 325 MG Tab PO ONE (16:01)
[2017-09-02] MEDS ORDERED: LORazepam 0.5 MG Tab PO ONE (17:51)
--- NOTE | 2017-09-05 09:45 | CT ---
Head CT Technique: Multiple axial sections through the brain were obtained. Intravenous contrast was not utilized. Comparison: Prior head CT exam of 06/11/17. Findings: Ventricles along the basal cisterns and sulci over the convexities are moderately prominent. Diminished density is noted within the periventricular white matter, basal ganglia and subcortical white matter compatible with small vessel ischemic demyelination change. Several old lacunar infarcts are noted within the basal ganglia. No other abnormal parenchymal densities are seen. No evidence of intracranial hemorrhage. No midline shift or mass effect is seen. Bone window settings were reviewed which show soft tissue density within the anterior left maxillary sinus which most likely represents small and incidental retention cyst which is stable. Mild mucosal thickening seen within the frontal and ethmoid sinuses. No acute calvarial abnormality is seen. Impression: 1. Chronic appearing sinus findings. 2. No acute intracranial abnormality is appreciated. Stable senescent change as described above. Diagnostic code #2 I agree with preliminary report from [facility], finalized at 09/02/17, 4:45 PM Central Time
== END 2017-09-02 18:50 | disposition home or self-care (01) ==
LOC: SUPCPDRO 14:35 → JD.ED 14:35
DX: R51 Headache (principal); I10 Essential (primary) hypertension; I25.2 Old myocardial infarction; I25.810 Atherosclerosis of coronary artery bypass graft(s) without angina pectoris; Z88.1 Allergy status to other antibiotic agents; Z88.5 Allergy status to narcotic agent; Z79.899 Other long term (current) drug therapy
CPT/HCPCS: 36415; 70450; 80053; 85025; 85652; 99284; A9270; J7050; 99283

== ENCOUNTER 2018-11-21 23:06 | Emergency (ER) | payer MEDICARE, OTHER ==
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
--- NOTE | 2018-11-22 08:06 | CR ---
Chest: Frontal view of the chest was obtained. Comparison: Prior chest x-ray of 06/14/17. Large hiatal hernia is noted. Heart size is mildly enlarged. Tortuous thoracic aorta is seen. Previous sternotomy is noted. Lungs are clear with no acute parenchymal change. Bony structures are osteopenic but appear grossly intact. Impression: 1. Heart size mildly enlarged, prior sternotomy. 2. Stable hiatal hernia. 3. Nothing acute is identified. Diagnostic code #2
== END 2018-11-22 03:20 ==
LOC: JD.ED 23:06
DX: I48.91 Unspecified atrial fibrillation (principal); I10 Essential (primary) hypertension; G30.9 Alzheimer's disease, unspecified; F02.80 Dementia in other diseases classified elsewhere, unspecified severity, without behavioral disturbance, psychotic disturbance, mood disturbance, and anxiety; K21.9 Gastro-esophageal reflux disease without esophagitis; I25.2 Old myocardial infarction; Z85.828 Personal history of other malignant neoplasm of skin; Z79.82 Long term (current) use of aspirin; Z79.899 Other long term (current) drug therapy; Z91.09 Other allergy status, other than to drugs and biological substances; Z88.1 Allergy status to other antibiotic agents; Z88.8 Allergy status to other drugs, medicaments and biological substances; Z88.5 Allergy status to narcotic agent
CPT/HCPCS: 36415; 71045; 71045-26; 80053; 83880; 84484; 85025; 93005; 99285-25

== ENCOUNTER 2019-01-12 18:06 | Inpatient (IN) | payer MEDICARE, OTHER ==
--- NOTE | 2019-01-12 18:38 | EDM.PDOC ---
ED HPI GENERAL MEDICAL PROBLEM - General Chief Complaint: Respiratory Problem Stated Complaint: [facility] Time Seen by Provider: 01/12/19 18:19 Source of Information: Reports: RN History Limitations: Reports: Altered Mental Status (Patient is obtunded) - History of Present Illness INITIAL COMMENTS - FREE TEXT/NARRATIVE: Mr. Campos is a 88-year-old man transferred to us from [facility] in [place], with reported that he developed cold like symptoms yesterday, then apparent shortness of breath today. The senior living reported to EMS that the patient's mental status was not his usual bearing in mind that the patient has a history of Alzheimer dementia. EMS found the patient's oxygen saturation to be in the 80s. They placed a nonrebreather mask, bringing his oxygen saturation to about 92%. Here in the ED, the patient was placed on BiPAP. He is essentially obtunded. We are told that the patient is both DNR and DNI. The patient's PCP is Dr. Joel Galvan. - Related Data Allergies Allergy/AdvReac Type Severity Reaction Status Date / Time azithromycin Allergy Cannot Verified 01/12/19 20:59 Remember celecoxib Allergy Other Verified 01/12/19 20:59 lanolin Allergy Cannot Verified 01/12/19 20:59 Remember levofloxacin Allergy Cannot Verified 01/12/19 20:59 Remember magnesium Allergy Other Verified 01/12/19 20:59 morphine Allergy Cannot Verified 01/12/19 20:59 Remember omeprazole [From Prilosec] Allergy Cannot Verified 01/12/19 20:59 Remember omeprazole magnesium Allergy Cannot Verified 01/12/19 20:59 [From Prilosec] Remember soap Allergy Cannot Verified 01/12/19 20:59 Remember Home Meds: Home Meds Albuterol/Ipratropium [Combivent] 2 puff INH QID 09/12/13 [History] Alfuzosin [Uroxatral] 10 mg PO PCBREAKFAST 09/12/13 [History] Isosorbide Mononitrate [Isosorbide Mononitrate ER] 30 mg PO DAILY 09/12/13 [ History] Magnesium Oxide 400 mg PO DAILY 09/12/13 [History] Nitroglycerin [Nitrostat] 0.4 mg SL ASDIRECTED PRN 09/12/13 [History] Phenytoin Sodium Extended [Dilantin] 200 mg PO BID 09/12/13 [History] Sertraline HCl [Zoloft] 100 mg PO DAILY 09/12/13 [History] Pantoprazole [ProTONIX] 40 mg PO ACBREAKFAST 02/14/16 [History] Donepezil HCl 10 mg PO BEDTIME 06/09/17 [History] Polyethylene Glycol 3350 [MiraLAX] 17 gm PO DAILY 06/09/17 [History] Rosuvastatin [Crestor] 20 mg PO BEDTIME 06/13/17 [History] Dextromethorphan/guaiFENesin [Robitussin DM] 5 ml PO Q4H PRN #120 ml 06/16/17 [ Rx] Acetaminophen [Tylenol Arthritis] 650 mg PO Q6HR PRN 11/22/18 [History] Act Mouth Wash 10 ml PO BID 11/22/18 [History] Aspirin [Ecotrin EC] 81 mg PO DAILY 11/22/18 [History] Bicalutamide [Casodex] 50 mg PO DAILY 11/22/18 [History] Metoprolol Succinate [Toprol Xl] 50 mg PO BEDTIME 11/22/18 [History] PEG 400/Hypromellose/Glycerin [Artificial Tears Drops] 1 drop EYEBOTH TID PRN [History] Simethicone [Gas Relief] 80 mg PO Q4HR PRN 11/22/18 [History] Sodium Chloride [Saline Nasal Mist] 1 spray NASBOTH QID PRN 11/22/18 [History] methIMAzole [Methimazole] 5 mg PO DAILY 11/22/18 [History] Calcium Carbonate [Tums] 200 mg PO Q6H PRN 01/12/19 [History] ClonazePAM [KlonoPIN] 0.5 mg PO BID 01/12/19 [History] Digoxin [Digox] 125 mcg PO DAILY 01/12/19 [History] Furosemide [Lasix] 20 mg PO DAILY 01/12/19 [History] Lidocaine 1 patch TOP BID 01/12/19 [History] Warfarin [Coumadin] 2.5 mg PO ONETIME 01/12/19 [History] Past Medical History HEENT History: Reports: Hard of Hearing Other HEENT History: has one hearing aide--R) side. Cardiovascular History: Reports: Afib, Heart Failure, High Cholesterol, Hypertension, PR, Other (See Below) (Iliac artery aneurysm) Gastrointestinal History: Reports: GERD Genitourinary History: Reports: BPH Musculoskeletal History: Reports: Fracture Neurological History: Reports: Alzheimers Disease, Seizure Psychiatric History: Reports: Addiction (alcohol) Endocrine/Metabolic History: Reports: Hypothyroidism Oncologic (Cancer) History: Reports: Prostate, Squamous Cell Carcinoma (face, Rt shoulder, Lt neck) Dermatologic History: Reports: Other (See Below) Other Dermatologic History: skin CA - Past Surgical History HEENT Surgical History: Reports: Cataract Surgery Cardiovascular Surgical History: Reports: Coronary Artery Bypass (x 5 vessel, 1989), Coronary Artery Stent (x 2) GI Surgical History: Reports: Cholecystectomy Social & Family History - Family History Family Medical History: Noncontributory - Caffeine Use Caffeine Use: Reports: Coffee - Living Situation & Occupation Living situation: Reports: Extended Care Facility ([facility] in [place]) Occupation: Retired ED ROS GENERAL - Review of Systems Review Of Systems: Unable To Obtain Neurological: Reports: Headache (chronic) ED EXAM, GENERAL - Physical Exam Exam: See Below Exam Limited By: Altered Mental Status (Obtunded) General Appearance: Thin, Other (Tachypnea, tachycardic) Ears: Normal External Exam Nose: Normal Inspection Throat/Mouth: Normal Inspection, No Airway Compromise Head: Atraumatic, Normocephalic Neck: Normal Inspection, Full Range of Motion. No: Lymphadenopathy (L), Lymphadenopathy (R) Respiratory/Chest: No Respiratory Distress, Normal Breath Sounds, No Accessory Muscle Use, Decreased Breath Sounds (mild), Crackles, Rhonchi, Wheezing ( expiratory Rt > Lt). No: Stridor, Prolonged Expiration Cardiovascular: Normal Peripheral Pulses, No Edema, No Gallop, No JVD, No Murmur , No Rub, Tachycardia (regular) Peripheral Pulses: 4+: Radial (L), Radial (R) GI/Abdominal: Normal Bowel Sounds, Soft, Non-Tender, No Organomegaly, No Distention, No Abnormal Bruit, No Mass (Male) Exam: Deferred Rectal (Males) Exam: Deferred Back Exam: Normal Inspection, Full Range of Motion, NT Extremities: Normal Range of Motion, No Pedal Edema, Normal Capillary Refill, Other (Right thumb amputated) Neurological: Other (Patient obtunded) Skin Exam: Dry, Intact, Normal Color, No Rash, Cool EKG INTERPRETATION EKG Date: 01/12/19 Time: 18:48 Rhythm: A-Fib Rate (Beats/Min): 125 Brilliant: Normal P-Wave: Absent QRS: Other (Late transition) ST-T: Depressed (Anterolateral and high lateral leads, with T-wave inversions, consistent with ischemia) QT: Normal Comparison: Change From Previous EKG (Ischemic changes are new from 11/22/2018) Course - Vital Signs Last Recorded V/S: Last Vital Signs Temp 36.1 C 01/12/19 18:22 Pulse 121 H 01/12/19 18:49 Resp 253 H 01/12/19 21:00 BP 103/69 01/12/19 21:00 Pulse Ox 100 01/12/19 21:00 - Orders/Labs/Meds Orders: Active Orders 24 hr Category Date Time Status EKG 12 Lead [EKG Documentation Completion] [RC] STAT Care 01/12/19 18:19 Active Rosario Catheter Insertion [Insert Urinary Catheter] [OM. Care 01/12/19 20:00 Ordered PC] Q24H RT BiPAP/CPAP [RC] ASDIRECTED Care 01/12/19 18:46 Active Urinary Catheter Assessment [RC] ASDIRECTED Care 01/12/19 19:58 Active Chest 1V Frontal [CR] Stat Exams 01/12/19 18:29 Taken CULTURE BLOOD [BC] Stat Lab 01/12/19 16:35 Received CULTURE BLOOD [BC] Stat Lab 01/12/19 19:32 Received LACTIC ACID [CHEM] Routine Lab 01/12/19 19:55 Ordered PROCALCITONIN [REF] Stat Lab 01/12/19 19:32 Received Piperacillin/Tazobactam [Piperacil-Tazobact] 4.5 gm Med 01/12/19 18:47 Active Sodium Chloride 0.9% [Normal Saline] 100 ml IV ONETIME Blood Culture x2 Reflex Set [OM.PC] Stat Oth 01/12/19 18:17 Ordered Medication Orders Piperacillin Sod/Tazobactam (Sod 4.5 gm/ Sodium Chloride) 100 mls @ 25 mls/hr IV ONETIME STA Stop: 01/12/19 22:46 Last Admin: 01/12/19 19:21 Dose: 25 mls/hr Labs: Laboratory Tests 01/12/19 01/12/19 01/12/19 Range/Units 18:20 18:35 18:35 WBC (4.23-9.07) K/mm3 RBC (4.63-6.08) M/mm3 Hgb (13.7-17.5) gm/dl Hct (40.1-51.0) % MCV (79.0-92.2) fl MCH (25.7-32.2) pg MCHC (32.2-35.5) g/dl RDW Std Deviation (35.1-43.9) fL Plt Count (163-337) K/mm3 MPV (9.4-12.3) fl Neutrophils % (Manual) (40-60) % Band Neutrophils % (0-10) % Lymphocytes % (Manual) (20-40) % Atypical Lymphs % % Monocytes % (Manual) (2-10) % Eosinophils % (Manual) (0.8-7.0) % Basophils % (Manual) (0.2-1.2) Platelet Estimate Plt Morphology Comment RBC Morph Comment PT (9.7-12.0) SECONDS INR APTT (22-31) SECONDS D-Dimer, Quantitative (0.19-0.50) mg/L Puncture Site Rt radial ABG pH 7.34 L (7.35-7.45) ABG pCO2 40.2 (35.0-45.0) mmHg ABG pO2 116.0 H (80.0-100.0) mmHg ABG HCO3 21.0 L (22.0-26.0) meq/L ABG O2 Saturation 97.6 H (96.0-97.0) % ABG Base Excess -4.0 L (-2-2.0) Johnathon Test Positive A-a Gradient 549 mmHg O2 Delivery Device Nrb Oxygen Flow Rate 15.0 FiO2 100.00 (21.00-100.00) % Sodium 141 (136-145) mEq/L Potassium 4.8 (3.5-5.1) mEq/L Chloride 104 (98-107) mEq/L Carbon Dioxide 23 (21-32) mEq/L Anion Gap 18.8 H (5-15) BUN 23 H (7-18) mg/dL Creatinine 1.4 H (0.7-1.3) mg/dL Est Cr Clr Drug Dosing 36.64 mL/min Estimated GFR (MDRD) 48 (>60) mL/min BUN/Creatinine Ratio 16.4 (14-18) Glucose 237 H (83-115) mg/dL Lactic Acid (0.4-2.0) mmol/L Calcium 9.2 (8.5-10.1) mg/dL Phosphorus 5.4 H (2.6-4.7) mg/dL Magnesium 2.2 (1.8-2.4) mg/dl Total Bilirubin 0.8 (0.2-1.0) mg/dL AST 29 (15-37) U/L ALT 19 (16-63) U/L Alkaline Phosphatase 158 H (46-116) U/L Troponin I 0.981 H* (0.00-0.056) ng/mL NT-Pro-B Natriuret Pep (0-450) pg/mL Total Protein 7.6 (6.4-8.2) g/dl Albumin 4.0 (3.4-5.0) g/dl Globulin 3.6 gm/dL Albumin/Globulin Ratio 1.1 (1-2) Urine Color (Yellow) Urine Appearance (Clear) Urine pH (5.0-8.0) Ur Specific [place] (1.005-1.030) Urine Protein (Negative) Urine Glucose (UA) (Negative) Urine Ketones (Negative) Urine Occult Blood (Negative) Urine Nitrite (Negative) Urine Bilirubin (Negative) Urine Urobilinogen (0.2-1.0) Ur Leukocyte Esterase (Negative) Urine RBC (0-5) /hpf Urine WBC (0-5) /hpf Ur Epithelial Cells (0-5) /hpf Urine Bacteria (FEW) /hpf Hyaline Casts (0-5) /lpf Urine Mucus (FEW) /hpf 01/12/19 01/12/19 01/12/19 Range/Units 18:35 18:35 18:35 WBC 20.25 H (4.23-9.07) K/mm3 RBC 5.20 (4.63-6.08) M/mm3 Hgb 15.1 (13.7-17.5) gm/dl Hct 46.2 (40.1-51.0) % MCV 88.8 (79.0-92.2) fl MCH 29.0 (25.7-32.2) pg MCHC 32.7 (32.2-35.5) g/dl RDW Std Deviation 49.5 H (35.1-43.9) fL Plt Count 239 (163-337) K/mm3 MPV 10.2 (9.4-12.3) fl Neutrophils % (Manual) 84 H (40-60) % Band Neutrophils % 0 (0-10) % Lymphocytes % (Manual) 14 L (20-40) % Atypical Lymphs % 0 % Monocytes % (Manual) 2 (2-10) % Eosinophils % (Manual) 0 L (0.8-7.0) % Basophils % (Manual) 0 L (0.2-1.2) Platelet Estimate Adequate Plt Morphology Comment Normal RBC Morph Comment Normal PT (9.7-12.0) SECONDS INR APTT (22-31) SECONDS D-Dimer, Quantitative 2.84 H (0.19-0.50) mg/L Puncture Site ABG pH (7.35-7.45) ABG pCO2 (35.0-45.0) mmHg ABG pO2 (80.0-100.0) mmHg ABG HCO3 (22.0-26.0) meq/L ABG O2 Saturation (96.0-97.0) % ABG Base Excess (-2-2.0) Johnathon Test A-a Gradient mmHg O2 Delivery Device Oxygen Flow Rate FiO2 (21.00-100.00) % Sodium (136-145) mEq/L Potassium (3.5-5.1) mEq/L Chloride (98-107) mEq/L Carbon Dioxide (21-32) mEq/L Anion Gap (5-15) BUN (7-18) mg/dL Creatinine (0.7-1.3) mg/dL Est Cr Clr Drug Dosing mL/min Estimated GFR (MDRD) (>60) mL/min BUN/Creatinine Ratio (14-18) Glucose (83-115) mg/dL Lactic Acid (0.4-2.0) mmol/L Calcium (8.5-10.1) mg/dL Phosphorus (2.6-4.7) mg/dL Magnesium (1.8-2.4) mg/dl Total Bilirubin (0.2-1.0) mg/dL AST (15-37) U/L ALT (16-63) U/L Alkaline Phosphatase (46-116) U/L Troponin I (0.00-0.056) ng/mL NT-Pro-B Natriuret Pep 50822 H (0-450) pg/mL Total Protein (6.4-8.2) g/dl Albumin (3.4-5.0) g/dl Globulin gm/dL Albumin/Globulin Ratio (1-2) Urine Color (Yellow) Urine Appearance (Clear) Urine pH (5.0-8.0) Ur Specific [place] (1.005-1.030) Urine Protein (Negative) Urine Glucose (UA) (Negative) Urine Ketones (Negative) Urine Occult Blood (Negative) Urine Nitrite (Negative) Urine Bilirubin (Negative) Urine Urobilinogen (0.2-1.0) Ur Leukocyte Esterase (Negative) Urine RBC (0-5) /hpf Urine WBC (0-5) /hpf Ur Epithelial Cells (0-5) /hpf Urine Bacteria (FEW) /hpf Hyaline Casts (0-5) /lpf Urine Mucus (FEW) /hpf 01/12/19 01/12/19 01/12/19 Range/Units 18:35 18:35 20:07 WBC (4.23-9.07) K/mm3 RBC (4.63-6.08) M/mm3 Hgb (13.7-17.5) gm/dl Hct (40.1-51.0) % MCV (79.0-92.2) fl MCH (25.7-32.2) pg MCHC (32.2-35.5) g/dl RDW Std Deviation (35.1-43.9) fL Plt Count (163-337) K/mm3 MPV (9.4-12.3) fl Neutrophils % (Manual) (40-60) % Band Neutrophils % (0-10) % Lymphocytes % (Manual) (20-40) % Atypical Lymphs % % Monocytes % (Manual) (2-10) % Eosinophils % (Manual) (0.8-7.0) % Basophils % (Manual) (0.2-1.2) Platelet Estimate Plt Morphology Comment RBC Morph Comment PT 28.5 H (9.7-12.0) SECONDS INR 2.77 APTT 41 H (22-31) SECONDS D-Dimer, Quantitative (0.19-0.50) mg/L Puncture Site ABG pH (7.35-7.45) ABG pCO2 (35.0-45.0) mmHg ABG pO2 (80.0-100.0) mmHg ABG HCO3 (22.0-26.0) meq/L ABG O2 Saturation (96.0-97.0) % ABG Base Excess (-2-2.0) Johnathon Test A-a Gradient mmHg O2 Delivery Device Oxygen Flow Rate FiO2 (21.00-100.00) % Sodium (136-145) mEq/L Potassium (3.5-5.1) mEq/L Chloride (98-107) mEq/L Carbon Dioxide (21-32) mEq/L Anion Gap (5-15) BUN (7-18) mg/dL Creatinine (0.7-1.3) mg/dL Est Cr Clr Drug Dosing mL/min Estimated GFR (MDRD) (>60) mL/min BUN/Creatinine Ratio (14-18) Glucose (83-115) mg/dL Lactic Acid 3.8 H (0.4-2.0) mmol/L Calcium (8.5-10.1) mg/dL Phosphorus (2.6-4.7) mg/dL Magnesium (1.8-2.4) mg/dl Total Bilirubin (0.2-1.0) mg/dL AST (15-37) U/L ALT (16-63) U/L Alkaline Phosphatase (46-116) U/L Troponin I (0.00-0.056) ng/mL NT-Pro-B Natriuret Pep (0-450) pg/mL Total Protein (6.4-8.2) g/dl Albumin (3.4-5.0) g/dl Globulin gm/dL Albumin/Globulin Ratio (1-2) Urine Color Yellow (Yellow) Urine Appearance Clear (Clear) Urine pH 6.5 (5.0-8.0) Ur Specific [place] 1.025 (1.005-1.030) Urine Protein Trace H (Negative) Urine Glucose (UA) Negative (Negative) Urine Ketones Negative (Negative) Urine Occult Blood Negative (Negative) Urine Nitrite Negative (Negative) Urine Bilirubin Negative (Negative) Urine Urobilinogen 0.2 (0.2-1.0) Ur Leukocyte Esterase Negative (Negative) Urine RBC 0-5 (0-5) /hpf Urine WBC 0-5 (0-5) /hpf Ur Epithelial Cells 0-5 (0-5) /hpf Urine Bacteria Few (FEW) /hpf Hyaline Casts 0-5 (0-5) /lpf Urine Mucus Not seen (FEW) /hpf Meds: Medications Generic Name Dose Route Start Last Admin Trade Name Freq PRN Reason Stop Dose Admin Piperacillin Sod/Tazobactam 100 mls @ 25 mls/hr 01/12/19 18:47 01/12/19 19:21 Sod 4.5 gm/ Sodium Chloride IV 01/12/19 22:46 25 mls/hr ONETIME STA Administration Discontinued Medications Generic Name Dose Route Start Last Admin Trade Name Freq PRN Reason Stop Dose Admin Sodium Chloride 500 mls @ 1,000 mls/hr 01/12/19 18:39 01/12/19 18:47 Normal Saline IV 01/12/19 19:08 1,000 mls/hr .BOLUS ONE Administration Vancomycin HCl 1 gm/ Sodium 250 mls @ 250 mls/hr 01/12/19 18:46 01/12/19 19: 32 Chloride IV 01/12/19 19:45 250 mls/hr ONETIME STA Administration Oseltamivir Phosphate 75 mg 01/12/19 21:31 Tamiflu PO 01/12/19 21:32 ONETIME ONE - Re-Assessments/Exams Free Text/Narrative Re-Assessment/Exam: 01/12/19 18:32 The patient appears to be in respiratory distress, and is likely septic. An extensive workup has been ordered, including blood work, 2 sets of blood cultures, an ABG, chest x-ray, a urinalysis, and an influenza swab. Dr. Blas is here in the ED and has already evaluated the patient and started him on BiPAP. The patient is DNR/DNI, therefore intubation is not an option. The patient will be given an IV fluid bolus. I will start empiric antibiotics once his blood cultures and urine have been collected. 01/12/19 19:43 Portable chest radiograph reviewed. There appears to be mild cardiomegaly, but no significant pulmonary vascular congestion or visible pleural effusions to suggest decompensated CHF. There is likely a right lower lobe infiltrate. No pneumothorax. A hiatal hernia is incidentally noted. Sternotomy wires and multiple cardiac clips incidentally noted. Formal read per the Radiologist pending. The patient's ABG represents a primary metabolic acidosis with full respiratory compensation. His CBC is remarkable for a WBC count elevated at 20.25 with 0% bandemia and 84 % neutrophilia. The remainder of his CBC is unremarkable. His CMP is remarkable for a BUN/Cr elevated at 23/1.4 and a blood glucose elevated at 237. His anion gap is modestly elevated at 18.8 with a normal bicarbonate. The remainder of his CMP is unremarkable. His magnesium level is within normal limits at 2.2. His phosphate level is mildly elevated at 5.4. His troponin is elevated at 0.981. His D-dimer is elevated at 2.84. His BNP is elevated at 10,683. His lactic acid level is elevated at 3.8. His INR is therapeutic at 2.77. The urinalysis is still pending. The influenza swab is still pending. The patient's BUN/Cr were 24/1.1 on 11/21/2018. The patient's D-dimer is elevated above what we would expect for the degree of his renal insufficiency. I discussed this with Dr. Blas, and we are in agreement that despite the patient's therapeutic INR, we will proceed with a CT angiogram of the chest with IV contrast, which will also help elucidate whether or not there is an infiltrate. Because of the patient's elevated BNP, we will be judicious with additional IV fluid. 01/12/19 20:06 The patient's influenza swab has returned negative. Since receiving the IV fluid bolus, the patient's heart rate has decreased below 100. 01/12/19 21:25 The patient's urinalysis is unremarkable. CT angiogram of the chest is read by Dr. Adams as: 1. Findings suspicious for to bypass graft and aneurysms as noted above. These are stable from prior CT study. [sic] 2. No findings of pulmonary embolism. 3. Hiatal hernia is again noted which is stable. 4. Other stable findings as noted above. 5. Nothing acute is appreciated on CT study of the chest. 01/12/19 21:30 The above was discussed with Dr. Blas. She would like the patient to receive a dose of Tamiflu. The patient will be admitted to the ICU. Departure - Departure Time of Disposition: 21:28 Disposition: Admitted As Inpatient 68 Condition: Fair Clinical Impression: Respiratory failure, Lactic acidosis, Elevated troponin, Acute renal insufficiency, Hyperglycemia - Discharge Information *PRESCRIPTION DRUG MONITORING PROGRAM REVIEWED*: Not Applicable *COPY OF PRESCRIPTION DRUG MONITORING REPORT IN PATIENT ЕЛЕНА: Not Applicable Referrals: Joel Galvan MD [Physician] - Forms: ED Department Discharge - My Orders Last 24 Hours: My Active Orders 01/12/19 18:29 Chest 1V Frontal [CR] Stat 01/12/19 18:47 Piperacillin/Tazobactam [Piperacil-Tazobact] 4.5 gm Sodium Chloride 0.9% [ Normal Saline] 100 ml IV ONETIME 01/12/19 19:55 LACTIC ACID [CHEM] Routine 01/12/19 19:58 Urinary Catheter Assessment [RC] ASDIRECTED 01/12/19 20:00 Rosario Catheter Insertion [Insert Urinary Catheter] [OM.PC] Q24H - Assessment/Plan Last 24 Hours: My Active Orders 01/12/19 18:29 Chest 1V Frontal [CR] Stat 01/12/19 18:47 Piperacillin/Tazobactam [Piperacil-Tazobact] 4.5 gm Sodium Chloride 0.9% [ Normal Saline] 100 ml IV ONETIME 01/12/19 19:55 LACTIC ACID [CHEM] Routine 01/12/19 19:58 Urinary Catheter Assessment [RC] ASDIRECTED 01/12/19 20:00 Rosario Catheter Insertion [Insert Urinary Catheter] [OM.PC] Q24H
[2019-01-12] MEDS ORDERED: Sodium Chloride 0.9% 500 ML IV ONE (18:39)
[2019-01-12] MEDS ORDERED: Piperacillin/Tazobactam 4.5 GM in Sodium Chloride 0.9% 100 ML IV STA (18:47)
--- NOTE | 2019-01-12 21:20 | CT ---
CT chest Technique: Multiple axial sections were obtained from above the lung apices inferiorly through the lung bases. Intravenous contrast was utilized. Study was performed as a pulmonary angiogram protocol. Comparison: Previous pulmonary angiogram study of 06/11/17. Findings: Pulmonary arteries are well-opacified. No filling defects are seen to indicate pulmonary embolism. Fairly large hiatal hernia is noted. Diffuse coronary artery calcification is seen of the [place] vessels. 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 Both these findings are stable from prior exam. Heart is enlarged. Aorta shows diffuse atherosclerotic calcification. 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 Heart is enlarged. Hiatal hernia is noted. Other visualized upper abdominal structures shows no discrete abnormality. Lung window settings show no acute parenchymal change. Bone window settings were reviewed which shows mild scattered degenerative change within the spine. No acute osseous abnormality is seen. Sternotomy wires are noted. Impression: 1. Findings suspicious for to bypass graft and aneurysms as noted above. These are stable from prior CT study. 2. No findings of pulmonary embolism. 3. Hiatal hernia is again noted which is stable. 4. Other stable findings as noted above. 5. Nothing acute is appreciated on CT study of the chest. Diagnostic code #3
[2019-01-12] MEDS ORDERED: Oseltamivir 75 MG Cap PO ONE (21:31)
--- NOTE | 2019-01-12 21:45 | PCM.HP.2 ---
H&P History of Present Illness - General Date of Service: 01/12/19 - History of Present Illness Initial Comments - Free Text/Narative: Mr. Campos is a 88-year-old man transferred to us from [facility] in [place], with reported that he developed cold like symptoms yesterday, then apparent shortness of breath today. The long term reported to EMS that the patient's mental status was not his usual bearing in mind that the patient has a history of Alzheimer dementia. EMS found the patient's oxygen saturation to be in the 80s. They placed a nonrebreather mask, bringing his oxygen saturation to about 92%. - Related Data Allergies/Adverse Reactions: Allergies Allergy/AdvReac Type Severity Reaction Status Date / Time azithromycin Allergy Cannot Verified 01/12/19 20:59 Remember celecoxib Allergy Other Verified 01/12/19 20:59 lanolin Allergy Cannot Verified 01/12/19 20:59 Remember levofloxacin Allergy Cannot Verified 01/12/19 20:59 Remember magnesium Allergy Other Verified 01/16/19 11:40 morphine Allergy Cannot Verified 01/12/19 20:59 Remember omeprazole [From Prilosec] Allergy Cannot Verified 01/12/19 20:59 Remember omeprazole magnesium Allergy Cannot Verified 01/12/19 20:59 [From Prilosec] Remember soap Allergy Cannot Verified 01/12/19 20:59 Remember Home Medications: Home Meds Albuterol/Ipratropium [Combivent] 2 puff INH QID 09/12/13 [History] Alfuzosin [Uroxatral] 10 mg PO PCBREAKFAST 09/12/13 [History] Isosorbide Mononitrate [Isosorbide Mononitrate ER] 30 mg PO DAILY 09/12/13 [ History] Magnesium Oxide 400 mg PO DAILY 09/12/13 [History] Nitroglycerin [Nitrostat] 0.4 mg SL ASDIRECTED PRN 09/12/13 [History] Phenytoin Sodium Extended [Dilantin] 200 mg PO BID 09/12/13 [History] Sertraline HCl [Zoloft] 100 mg PO DAILY 09/12/13 [History] Pantoprazole [ProTONIX] 40 mg PO ACBREAKFAST 02/14/16 [History] Donepezil HCl 10 mg PO BEDTIME 06/09/17 [History] Polyethylene Glycol 3350 [MiraLAX] 17 gm PO DAILY 06/09/17 [History] Rosuvastatin [Crestor] 20 mg PO BEDTIME 06/13/17 [History] Dextromethorphan/guaiFENesin [Robitussin DM] 5 ml PO Q4H PRN #120 ml 06/16/17 [ Rx] Acetaminophen [Tylenol Arthritis] 650 mg PO Q6HR PRN 11/22/18 [History] Act Mouth Wash 10 ml PO BID 11/22/18 [History] Bicalutamide [Casodex] 50 mg PO DAILY 11/22/18 [History] Metoprolol Succinate [Toprol Xl] 50 mg PO BEDTIME 11/22/18 [History] PEG 400/Hypromellose/Glycerin [Artificial Tears Drops] 1 drop EYEBOTH TID PRN [History] Simethicone [Gas Relief] 80 mg PO Q4HR PRN 11/22/18 [History] Sodium Chloride [Saline Nasal Mist] 1 spray NASBOTH QID PRN 11/22/18 [History] methIMAzole [Methimazole] 5 mg PO DAILY 11/22/18 [History] Calcium Carbonate [Tums] 200 mg PO Q6H PRN 01/12/19 [History] ClonazePAM [KlonoPIN] 0.5 mg PO BID 01/12/19 [History] Digoxin [Digox] 125 mcg PO DAILY 01/12/19 [History] Furosemide [Lasix] 20 mg PO DAILY 01/12/19 [History] Lidocaine 1 patch TOP BID 01/12/19 [History] Warfarin [Coumadin] 3 mg PO QPM #30 tablet 01/18/19 [Rx] Past Medical History HEENT History: Reports: Hard of Hearing Other HEENT History: has one hearing aide--R) side. 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 Dermatologic History: Reports: Other (See Below) Other Dermatologic History: skin CA - Past Surgical History HEENT Surgical History: Reports: Cataract Surgery Cardiovascular Surgical History: Reports: Coronary Artery Bypass (x 5 vessel, 1989), Coronary Artery Stent (x 2) GI Surgical History: Reports: Cholecystectomy Social & Family History - Family History Family Medical History: Noncontributory - Tobacco Use Smoking Status *Q: Unknown Ever Smoked - Caffeine Use Caffeine Use: Reports: Coffee - Living Situation & Occupation Living situation: Reports: Extended Care Facility ([facility] in [place]) Occupation: Retired H&P Review of Systems - Review of Systems: Review Of Systems: Unable To Obtain Exam - Exam Exam: See Below - Vital Signs Vital Signs: Last Vital Signs Temp 36.1 C 01/12/19 18:22 Pulse 121 H 01/12/19 18:49 Resp 253 H 01/12/19 21:00 BP 103/69 01/12/19 21:00 Pulse Ox 100 01/12/19 21:00 Weight: 79.379 kg - Exam Physical Exam Comments:: Exam Limited By: Altered Mental Status (Obtunded) General Appearance: Thin, Other (Tachypnea, tachycardic) Ears: Normal External Exam Nose: Normal Inspection Throat/Mouth: Normal Inspection, No Airway Compromise Head: Atraumatic, Normocephalic Neck: Normal Inspection, Full Range of Motion. No: Lymphadenopathy (L), Lymphadenopathy (R) Respiratory/Chest: No Respiratory Distress, Normal Breath Sounds, No Accessory Muscle Use, Decreased Breath Sounds (mild), Crackles, Rhonchi, Wheezing ( expiratory Rt > Lt). No: Stridor, Prolonged Expiration Cardiovascular: Normal Peripheral Pulses, No Edema, No Gallop, No JVD, No Murmur , No Rub, Tachycardia (regular) Peripheral Pulses: 4+: Radial (L), Radial (R) GI/Abdominal: Normal Bowel Sounds, Soft, Non-Tender, No Organomegaly, No Distention, No Abnormal Bruit, No Mass (Male) Exam: Deferred Rectal (Males) Exam: Deferred Back Exam: Normal Inspection, Full Range of Motion, NT Extremities: Normal Range of Motion, No Pedal Edema, Normal Capillary Refill, Other (Right thumb amputated) Neurological: Other (Patient obtunded) Skin Exam: Dry, Intact, Normal Color, No Rash, Cool - Patient Data Lab Results Last 24 hrs: Laboratory Results - last 24 hr 01/12/19 01/12/19 01/12/19 Range/Units 18:20 18:35 18:35 WBC (4.23-9.07) K/mm3 RBC (4.63-6.08) M/mm3 Hgb (13.7-17.5) gm/dl Hct (40.1-51.0) % MCV (79.0-92.2) fl MCH (25.7-32.2) pg MCHC (32.2-35.5) g/dl RDW Std Deviation (35.1-43.9) fL Plt Count (163-337) K/mm3 MPV (9.4-12.3) fl Neutrophils % (Manual) (40-60) % Band Neutrophils % (0-10) % Lymphocytes % (Manual) (20-40) % Atypical Lymphs % % Monocytes % (Manual) (2-10) % Eosinophils % (Manual) (0.8-7.0) % Basophils % (Manual) (0.2-1.2) Platelet Estimate Plt Morphology Comment RBC Morph Comment PT (9.7-12.0) SECONDS INR APTT (22-31) SECONDS D-Dimer, Quantitative (0.19-0.50) mg/L Puncture Site Rt radial ABG pH 7.34 L (7.35-7.45) ABG pCO2 40.2 (35.0-45.0) mmHg ABG pO2 116.0 H (80.0-100.0) mmHg ABG HCO3 21.0 L (22.0-26.0) meq/L ABG O2 Saturation 97.6 H (96.0-97.0) % ABG Base Excess -4.0 L (-2-2.0) Johnathon Test Positive A-a Gradient 549 mmHg O2 Delivery Device Nrb Oxygen Flow Rate 15.0 FiO2 100.00 (21.00-100.00) % Sodium 141 (136-145) mEq/L Potassium 4.8 (3.5-5.1) mEq/L Chloride 104 (98-107) mEq/L Carbon Dioxide 23 (21-32) mEq/L Anion Gap 18.8 H (5-15) BUN 23 H (7-18) mg/dL Creatinine 1.4 H (0.7-1.3) mg/dL Est Cr Clr Drug Dosing 36.64 mL/min Estimated GFR (MDRD) 48 (>60) mL/min BUN/Creatinine Ratio 16.4 (14-18) Glucose 237 H (83-115) mg/dL Lactic Acid (0.4-2.0) mmol/L Calcium 9.2 (8.5-10.1) mg/dL Phosphorus 5.4 H (2.6-4.7) mg/dL Magnesium 2.2 (1.8-2.4) mg/dl Total Bilirubin 0.8 (0.2-1.0) mg/dL AST 29 (15-37) U/L ALT 19 (16-63) U/L Alkaline Phosphatase 158 H (46-116) U/L Troponin I 0.981 H* (0.00-0.056) ng/mL NT-Pro-B Natriuret Pep (0-450) pg/mL Total Protein 7.6 (6.4-8.2) g/dl Albumin 4.0 (3.4-5.0) g/dl Globulin 3.6 gm/dL Albumin/Globulin Ratio 1.1 (1-2) Urine Color (Yellow) Urine Appearance (Clear) Urine pH (5.0-8.0) Ur Specific Ridge (1.005-1.030) Urine Protein (Negative) Urine Glucose (UA) (Negative) Urine Ketones (Negative) Urine Occult Blood (Negative) Urine Nitrite (Negative) Urine Bilirubin (Negative) Urine Urobilinogen (0.2-1.0) Ur Leukocyte Esterase (Negative) Urine RBC (0-5) /hpf Urine WBC (0-5) /hpf Ur Epithelial Cells (0-5) /hpf Urine Bacteria (FEW) /hpf Hyaline Casts (0-5) /lpf Urine Mucus (FEW) /hpf 01/12/19 01/12/19 01/12/19 Range/Units 18:35 18:35 18:35 WBC 20.25 H (4.23-9.07) K/mm3 RBC 5.20 (4.63-6.08) M/mm3 Hgb 15.1 (13.7-17.5) gm/dl Hct 46.2 (40.1-51.0) % MCV 88.8 (79.0-92.2) fl MCH 29.0 (25.7-32.2) pg MCHC 32.7 (32.2-35.5) g/dl RDW Std Deviation 49.5 H (35.1-43.9) fL Plt Count 239 (163-337) K/mm3 MPV 10.2 (9.4-12.3) fl Neutrophils % (Manual) 84 H (40-60) % Band Neutrophils % 0 (0-10) % Lymphocytes % (Manual) 14 L (20-40) % Atypical Lymphs % 0 % Monocytes % (Manual) 2 (2-10) % Eosinophils % (Manual) 0 L (0.8-7.0) % Basophils % (Manual) 0 L (0.2-1.2) Platelet Estimate Adequate Plt Morphology Comment Normal RBC Morph Comment Normal PT (9.7-12.0) SECONDS INR APTT (22-31) SECONDS D-Dimer, Quantitative 2.84 H (0.19-0.50) mg/L Puncture Site ABG pH (7.35-7.45) ABG pCO2 (35.0-45.0) mmHg ABG pO2 (80.0-100.0) mmHg ABG HCO3 (22.0-26.0) meq/L ABG O2 Saturation (96.0-97.0) % ABG Base Excess (-2-2.0) Johnathon Test A-a Gradient mmHg O2 Delivery Device Oxygen Flow Rate FiO2 (21.00-100.00) % Sodium (136-145) mEq/L Potassium (3.5-5.1) mEq/L Chloride (98-107) mEq/L Carbon Dioxide (21-32) mEq/L Anion Gap (5-15) BUN (7-18) mg/dL Creatinine (0.7-1.3) mg/dL Est Cr Clr Drug Dosing mL/min Estimated GFR (MDRD) (>60) mL/min BUN/Creatinine Ratio (14-18) Glucose (83-115) mg/dL Lactic Acid (0.4-2.0) mmol/L Calcium (8.5-10.1) mg/dL Phosphorus (2.6-4.7) mg/dL Magnesium (1.8-2.4) mg/dl Total Bilirubin (0.2-1.0) mg/dL AST (15-37) U/L ALT (16-63) U/L Alkaline Phosphatase (46-116) U/L Troponin I (0.00-0.056) ng/mL NT-Pro-B Natriuret Pep 58093 H (0-450) pg/mL Total Protein (6.4-8.2) g/dl Albumin (3.4-5.0) g/dl Globulin gm/dL Albumin/Globulin Ratio (1-2) Urine Color (Yellow) Urine Appearance (Clear) Urine pH (5.0-8.0) Ur Specific Ridge (1.005-1.030) Urine Protein (Negative) Urine Glucose (UA) (Negative) Urine Ketones (Negative) Urine Occult Blood (Negative) Urine Nitrite (Negative) Urine Bilirubin (Negative) Urine Urobilinogen (0.2-1.0) Ur Leukocyte Esterase (Negative) Urine RBC (0-5) /hpf Urine WBC (0-5) /hpf Ur Epithelial Cells (0-5) /hpf Urine Bacteria (FEW) /hpf Hyaline Casts (0-5) /lpf Urine Mucus (FEW) /hpf 01/12/19 01/12/19 01/12/19 Range/Units 18:35 18:35 20:07 WBC (4.23-9.07) K/mm3 RBC (4.63-6.08) M/mm3 Hgb (13.7-17.5) gm/dl Hct (40.1-51.0) % MCV (79.0-92.2) fl MCH (25.7-32.2) pg MCHC (32.2-35.5) g/dl RDW Std Deviation (35.1-43.9) fL Plt Count (163-337) K/mm3 MPV (9.4-12.3) fl Neutrophils % (Manual) (40-60) % Band Neutrophils % (0-10) % Lymphocytes % (Manual) (20-40) % Atypical Lymphs % % Monocytes % (Manual) (2-10) % Eosinophils % (Manual) (0.8-7.0) % Basophils % (Manual) (0.2-1.2) Platelet Estimate Plt Morphology Comment RBC Morph Comment PT 28.5 H (9.7-12.0) SECONDS INR 2.77 APTT 41 H (22-31) SECONDS D-Dimer, Quantitative (0.19-0.50) mg/L Puncture Site ABG pH (7.35-7.45) ABG pCO2 (35.0-45.0) mmHg ABG pO2 (80.0-100.0) mmHg ABG HCO3 (22.0-26.0) meq/L ABG O2 Saturation (96.0-97.0) % ABG Base Excess (-2-2.0) Johnathon Test A-a Gradient mmHg O2 Delivery Device Oxygen Flow Rate FiO2 (21.00-100.00) % Sodium (136-145) mEq/L Potassium (3.5-5.1) mEq/L Chloride (98-107) mEq/L Carbon Dioxide (21-32) mEq/L Anion Gap (5-15) BUN (7-18) mg/dL Creatinine (0.7-1.3) mg/dL Est Cr Clr Drug Dosing mL/min Estimated GFR (MDRD) (>60) mL/min BUN/Creatinine Ratio (14-18) Glucose (83-115) mg/dL Lactic Acid 3.8 H (0.4-2.0) mmol/L Calcium (8.5-10.1) mg/dL Phosphorus (2.6-4.7) mg/dL Magnesium (1.8-2.4) mg/dl Total Bilirubin (0.2-1.0) mg/dL AST (15-37) U/L ALT (16-63) U/L Alkaline Phosphatase (46-116) U/L Troponin I (0.00-0.056) ng/mL NT-Pro-B Natriuret Pep (0-450) pg/mL Total Protein (6.4-8.2) g/dl Albumin (3.4-5.0) g/dl Globulin gm/dL Albumin/Globulin Ratio (1-2) Urine Color Yellow (Yellow) Urine Appearance Clear (Clear) Urine pH 6.5 (5.0-8.0) Ur Specific Ridge 1.025 (1.005-1.030) Urine Protein Trace H (Negative) Urine Glucose (UA) Negative (Negative) Urine Ketones Negative (Negative) Urine Occult Blood Negative (Negative) Urine Nitrite Negative (Negative) Urine Bilirubin Negative (Negative) Urine Urobilinogen 0.2 (0.2-1.0) Ur Leukocyte Esterase Negative (Negative) Urine RBC 0-5 (0-5) /hpf Urine WBC 0-5 (0-5) /hpf Ur Epithelial Cells 0-5 (0-5) /hpf Urine Bacteria Few (FEW) /hpf Hyaline Casts 0-5 (0-5) /lpf Urine Mucus Not seen (FEW) /hpf Result Diagrams: 01/18/19 07:02 01/18/19 07:02 Wenceslao Results Last 24 hrs: Microbiology 01/12/19 18:35 Influenza Type A Antigen Screen - Final Nasopharyngeal Swab NEGATIVE INFLUENZA A VIRUS AG REFERENCE RANGE: NEGATIVE Influenza Type B Antigen Screen - Final NEGATIVE INFLUENZA B VIRUS AG REFERENCE RANGE: NEGATIVE - Problem List (1) Acute respiratory failure SNOMED Code(s): 90141588 ICD Code: J96.00 - ACUTE RESPIRATORY FAILURE, UNSP W HYPOXIA OR HYPERCAPNIA Status: Acute (2) Healthcare-associated pneumonia SNOMED Code(s): 011968424, 484093148 ICD Code: J18.9 - PNEUMONIA, UNSPECIFIED ORGANISM Status: Acute (3) Acute on chronic heart failure SNOMED Code(s): 715977074 ICD Code: I50.9 - HEART FAILURE, UNSPECIFIED Status: Acute (4) Atrial fibrillation SNOMED Code(s): 42965731 ICD Code: I48.91 - UNSPECIFIED ATRIAL FIBRILLATION Status: Acute (5) Warfarin anticoagulation SNOMED Code(s): 96544074, 021203226, 171251622 ICD Code: Z79.01 - AUDIT LEAD (CURRENT) USE OF ANTICOAGULANTS Status: Acute (6) Hypertension SNOMED Code(s): 77497101 ICD Code: I10 - ESSENTIAL (PRIMARY) HYPERTENSION Status: Acute (7) Seizure disorder SNOMED Code(s): 088153651 ICD Code: G40.909 - EPILEPSY, UNSP, NOT INTRACTABLE, WITHOUT STATUS EPILEPTICUS Status: Acute (8) Alzheimer's dementia SNOMED Code(s): 06429008 ICD Code: G30.9 - ALZHEIMER'S DISEASE, UNSPECIFIED; F02.80 - DEMENTIA IN OTH DISEASES CLASSD ELSWHR W/O BEHAVRL DISTURB Status: Acute (9) BPH (benign prostatic hyperplasia) SNOMED Code(s): 262437084 ICD Code: N40.0 - BENIGN PROSTATIC HYPERPLASIA WITHOUT LOWER URINRY TRACT SYMP Status: Acute (10) Deafness in left ear SNOMED Code(s): 893656946 ICD Code: H91.92 - UNSPECIFIED HEARING LOSS, LEFT EAR Status: Acute Problem List Initiated/Reviewed/Updated: Yes Assessment/Plan Comment:: Acute respiratory failure PLAN - Continue BiPAP - Repeat ABGs at 22:00 - Manage HAP Healthcare associated pneumonia PLAN - Start Vancomycin, Zosyn and Levaquin - Start Tamiflu - Ipratropium nebulizations ever 6 hours - Procalcitonin ordered - Influenza swab ordered - Induced sputum sample by RT - Budesonide nebulizations every 12 hours - Guaifenesin every 8 hours Acute on chronic heart failure, unknown EF PLAN - Repeat echocardiogram ordered - Daily weights - Fluid and sodium restricted diet - Strict I/Os Atrial fibrillation on warfarin PLAN - continuous cardiac monitoring - Continue home warfarin - F/U on INR results Hypertension PLAN - Hold all BP meds for now Seizure disorder PLAN - Continue phenytoin Advanced Alzheimer's dementia PLAN - Let me sleep protocol - Encourage daytime wakefulness Benign prostate hyperplasia PLAN - No home meds - Place simpson catheter Left ear deafness PLAN - Make sure hearing aids are on during admission PROPHYLAXIS DVT- on warfarin GI- not indicated CODE STATUS: DNR/DNI DISPOSITION: Admitted for IV antibiotics and improvement of respiratory status. Discharge unlikely in the next 96 hours.
[2019-01-13] MEDS: Ipratropium 0.02% 0.5 MG/2.5 ML Neb Soln NEB SCH ×4 (02:04→20:26)
--- NOTE | 2019-01-13 08:23 | PCM.PN ---
- General Info Date of Service: 01/13/19 - Patient Data Vitals - Most Recent: Last Vital Signs Temp 37.1 C 01/13/19 08:00 Pulse 89 01/12/19 23:34 Resp 20 01/13/19 08:00 BP 118/73 01/13/19 08:00 Pulse Ox 95 01/13/19 08:00 Weight - Most Recent: 74.28 kg I&O - Last 24 Hours: Intake & Output 01/12/19 01/13/19 01/13/19 22:59 06:59 14:59 Intake Total 910 Output Total 475 45 Balance 435 -45 Lab Results Last 24 Hours: Laboratory Results - last 24 hr 01/12/19 01/12/19 01/12/19 Range/Units 18:20 18:35 18:35 WBC (4.23-9.07) K/mm3 RBC (4.63-6.08) M/mm3 Hgb (13.7-17.5) gm/dl Hct (40.1-51.0) % MCV (79.0-92.2) fl MCH (25.7-32.2) pg MCHC (32.2-35.5) g/dl RDW Std Deviation (35.1-43.9) fL Plt Count (163-337) K/mm3 MPV (9.4-12.3) fl Neut % (Auto) (34.0-67.9) % Lymph % (Auto) (21.8-53.1) % [place] % (Auto) (5.3-12.2) % Eos % (Auto) (0.8-7.0) Baso % (Auto) (0.1-1.2) % Neut # (Auto) (1.78-5.38) K/mm3 Lymph # (Auto) (1.32-3.57) K/mm3 [place] # (Auto) (0.30-0.82) K/mm3 Eos # (Auto) (0.04-0.54) K/mm3 Baso # (Auto) (0.01-0.08) K/mm3 Neutrophils % (Manual) (40-60) % Band Neutrophils % (0-10) % Lymphocytes % (Manual) (20-40) % Atypical Lymphs % % Monocytes % (Manual) (2-10) % Eosinophils % (Manual) (0.8-7.0) % Basophils % (Manual) (0.2-1.2) Platelet Estimate Plt Morphology Comment RBC Morph Comment PT (9.7-12.0) SECONDS INR APTT (22-31) SECONDS D-Dimer, Quantitative (0.19-0.50) mg/L Puncture Site Rt radial ABG pH 7.34 L (7.35-7.45) ABG pCO2 40.2 (35.0-45.0) mmHg ABG pO2 116.0 H (80.0-100.0) mmHg ABG HCO3 21.0 L (22.0-26.0) meq/L ABG O2 Saturation 97.6 H (96.0-97.0) % ABG Base Excess -4.0 L (-2-2.0) Johnathon Test Positive A-a Gradient 549 mmHg O2 Delivery Device Nrb Oxygen Flow Rate 15.0 FiO2 100.00 (21.00-100.00) % PEEP cmH20 Pressure Support cmH2O Sodium 141 (136-145) mEq/L Potassium 4.8 (3.5-5.1) mEq/L Chloride 104 (98-107) mEq/L Carbon Dioxide 23 (21-32) mEq/L Anion Gap 18.8 H (5-15) BUN 23 H (7-18) mg/dL Creatinine 1.4 H (0.7-1.3) mg/dL Est Cr Clr Drug Dosing 36.64 mL/min Estimated GFR (MDRD) 48 (>60) mL/min BUN/Creatinine Ratio 16.4 (14-18) Glucose 237 H (83-115) mg/dL Lactic Acid (0.4-2.0) mmol/L Calcium 9.2 (8.5-10.1) mg/dL Phosphorus 5.4 H (2.6-4.7) mg/dL Magnesium 2.2 (1.8-2.4) mg/dl Total Bilirubin 0.8 (0.2-1.0) mg/dL AST 29 (15-37) U/L ALT 19 (16-63) U/L Alkaline Phosphatase 158 H (46-116) U/L Troponin I 0.981 H* (0.00-0.056) ng/mL NT-Pro-B Natriuret Pep (0-450) pg/mL Total Protein 7.6 (6.4-8.2) g/dl Albumin 4.0 (3.4-5.0) g/dl Globulin 3.6 gm/dL Albumin/Globulin Ratio 1.1 (1-2) Urine Color (Yellow) Urine Appearance (Clear) Urine pH (5.0-8.0) Ur Specific [place] (1.005-1.030) Urine Protein (Negative) Urine Glucose (UA) (Negative) Urine Ketones (Negative) Urine Occult Blood (Negative) Urine Nitrite (Negative) Urine Bilirubin (Negative) Urine Urobilinogen (0.2-1.0) Ur Leukocyte Esterase (Negative) Urine RBC (0-5) /hpf Urine WBC (0-5) /hpf Ur Epithelial Cells (0-5) /hpf Urine Bacteria (FEW) /hpf Hyaline Casts (0-5) /lpf Urine Mucus (FEW) /hpf 01/12/19 01/12/19 01/12/19 Range/Units 18:35 18:35 18:35 WBC 20.25 H (4.23-9.07) K/mm3 RBC 5.20 (4.63-6.08) M/mm3 Hgb 15.1 (13.7-17.5) gm/dl Hct 46.2 (40.1-51.0) % MCV 88.8 (79.0-92.2) fl MCH 29.0 (25.7-32.2) pg MCHC 32.7 (32.2-35.5) g/dl RDW Std Deviation 49.5 H (35.1-43.9) fL Plt Count 239 (163-337) K/mm3 MPV 10.2 (9.4-12.3) fl Neut % (Auto) (34.0-67.9) % Lymph % (Auto) (21.8-53.1) % [place] % (Auto) (5.3-12.2) % Eos % (Auto) (0.8-7.0) Baso % (Auto) (0.1-1.2) % Neut # (Auto) (1.78-5.38) K/mm3 Lymph # (Auto) (1.32-3.57) K/mm3 [place] # (Auto) (0.30-0.82) K/mm3 Eos # (Auto) (0.04-0.54) K/mm3 Baso # (Auto) (0.01-0.08) K/mm3 Neutrophils % (Manual) 84 H (40-60) % Band Neutrophils % 0 (0-10) % Lymphocytes % (Manual) 14 L (20-40) % Atypical Lymphs % 0 % Monocytes % (Manual) 2 (2-10) % Eosinophils % (Manual) 0 L (0.8-7.0) % Basophils % (Manual) 0 L (0.2-1.2) Platelet Estimate Adequate Plt Morphology Comment Normal RBC Morph Comment Normal PT (9.7-12.0) SECONDS INR APTT (22-31) SECONDS D-Dimer, Quantitative 2.84 H (0.19-0.50) mg/L Puncture Site ABG pH (7.35-7.45) ABG pCO2 (35.0-45.0) mmHg ABG pO2 (80.0-100.0) mmHg ABG HCO3 (22.0-26.0) meq/L ABG O2 Saturation (96.0-97.0) % ABG Base Excess (-2-2.0) Johnathon Test A-a Gradient mmHg O2 Delivery Device Oxygen Flow Rate FiO2 (21.00-100.00) % PEEP cmH20 Pressure Support cmH2O Sodium (136-145) mEq/L Potassium (3.5-5.1) mEq/L Chloride (98-107) mEq/L Carbon Dioxide (21-32) mEq/L Anion Gap (5-15) BUN (7-18) mg/dL Creatinine (0.7-1.3) mg/dL Est Cr Clr Drug Dosing mL/min Estimated GFR (MDRD) (>60) mL/min BUN/Creatinine Ratio (14-18) Glucose (83-115) mg/dL Lactic Acid (0.4-2.0) mmol/L Calcium (8.5-10.1) mg/dL Phosphorus (2.6-4.7) mg/dL Magnesium (1.8-2.4) mg/dl Total Bilirubin (0.2-1.0) mg/dL AST (15-37) U/L ALT (16-63) U/L Alkaline Phosphatase (46-116) U/L Troponin I (0.00-0.056) ng/mL NT-Pro-B Natriuret Pep 29607 H (0-450) pg/mL Total Protein (6.4-8.2) g/dl Albumin (3.4-5.0) g/dl Globulin gm/dL Albumin/Globulin Ratio (1-2) Urine Color (Yellow) Urine Appearance (Clear) Urine pH (5.0-8.0) Ur Specific [place] (1.005-1.030) Urine Protein (Negative) Urine Glucose (UA) (Negative) Urine Ketones (Negative) Urine Occult Blood (Negative) Urine Nitrite (Negative) Urine Bilirubin (Negative) Urine Urobilinogen (0.2-1.0) Ur Leukocyte Esterase (Negative) Urine RBC (0-5) /hpf Urine WBC (0-5) /hpf Ur Epithelial Cells (0-5) /hpf Urine Bacteria (FEW) /hpf Hyaline Casts (0-5) /lpf Urine Mucus (FEW) /hpf 01/12/19 01/12/19 01/12/19 Range/Units 18:35 18:35 20:07 WBC (4.23-9.07) K/mm3 RBC (4.63-6.08) M/mm3 Hgb (13.7-17.5) gm/dl Hct (40.1-51.0) % MCV (79.0-92.2) fl MCH (25.7-32.2) pg MCHC (32.2-35.5) g/dl RDW Std Deviation (35.1-43.9) fL Plt Count (163-337) K/mm3 MPV (9.4-12.3) fl Neut % (Auto) (34.0-67.9) % Lymph % (Auto) (21.8-53.1) % [place] % (Auto) (5.3-12.2) % Eos % (Auto) (0.8-7.0) Baso % (Auto) (0.1-1.2) % Neut # (Auto) (1.78-5.38) K/mm3 Lymph # (Auto) (1.32-3.57) K/mm3 [place] # (Auto) (0.30-0.82) K/mm3 Eos # (Auto) (0.04-0.54) K/mm3 Baso # (Auto) (0.01-0.08) K/mm3 Neutrophils % (Manual) (40-60) % Band Neutrophils % (0-10) % Lymphocytes % (Manual) (20-40) % Atypical Lymphs % % Monocytes % (Manual) (2-10) % Eosinophils % (Manual) (0.8-7.0) % Basophils % (Manual) (0.2-1.2) Platelet Estimate Plt Morphology Comment RBC Morph Comment PT 28.5 H (9.7-12.0) SECONDS INR 2.77 APTT 41 H (22-31) SECONDS D-Dimer, Quantitative (0.19-0.50) mg/L Puncture Site ABG pH (7.35-7.45) ABG pCO2 (35.0-45.0) mmHg ABG pO2 (80.0-100.0) mmHg ABG HCO3 (22.0-26.0) meq/L ABG O2 Saturation (96.0-97.0) % ABG Base Excess (-2-2.0) Johnathon Test A-a Gradient mmHg O2 Delivery Device Oxygen Flow Rate FiO2 (21.00-100.00) % PEEP cmH20 Pressure Support cmH2O Sodium (136-145) mEq/L Potassium (3.5-5.1) mEq/L Chloride (98-107) mEq/L Carbon Dioxide (21-32) mEq/L Anion Gap (5-15) BUN (7-18) mg/dL Creatinine (0.7-1.3) mg/dL Est Cr Clr Drug Dosing mL/min Estimated GFR (MDRD) (>60) mL/min BUN/Creatinine Ratio (14-18) Glucose (83-115) mg/dL Lactic Acid 3.8 H (0.4-2.0) mmol/L Calcium (8.5-10.1) mg/dL Phosphorus (2.6-4.7) mg/dL Magnesium (1.8-2.4) mg/dl Total Bilirubin (0.2-1.0) mg/dL AST (15-37) U/L ALT (16-63) U/L Alkaline Phosphatase (46-116) U/L Troponin I (0.00-0.056) ng/mL NT-Pro-B Natriuret Pep (0-450) pg/mL Total Protein (6.4-8.2) g/dl Albumin (3.4-5.0) g/dl Globulin gm/dL Albumin/Globulin Ratio (1-2) Urine Color Yellow (Yellow) Urine Appearance Clear (Clear) Urine pH 6.5 (5.0-8.0) Ur Specific [place] 1.025 (1.005-1.030) Urine Protein Trace H (Negative) Urine Glucose (UA) Negative (Negative) Urine Ketones Negative (Negative) Urine Occult Blood Negative (Negative) Urine Nitrite Negative (Negative) Urine Bilirubin Negative (Negative) Urine Urobilinogen 0.2 (0.2-1.0) Ur Leukocyte Esterase Negative (Negative) Urine RBC 0-5 (0-5) /hpf Urine WBC 0-5 (0-5) /hpf Ur Epithelial Cells 0-5 (0-5) /hpf Urine Bacteria Few (FEW) /hpf Hyaline Casts 0-5 (0-5) /lpf Urine Mucus Not seen (FEW) /hpf 01/12/19 01/12/19 01/13/19 Range/Units 22:19 22:55 07:03 WBC 12.91 H (4.23-9.07) K/mm3 RBC 4.85 (4.63-6.08) M/mm3 Hgb 14.2 (13.7-17.5) gm/dl Hct 43.2 (40.1-51.0) % MCV 89.1 (79.0-92.2) fl MCH 29.3 (25.7-32.2) pg MCHC 32.9 (32.2-35.5) g/dl RDW Std Deviation 50.2 H (35.1-43.9) fL Plt Count 189 (163-337) K/mm3 MPV 10.0 (9.4-12.3) fl Neut % (Auto) 75.0 H (34.0-67.9) % Lymph % (Auto) 8.1 L (21.8-53.1) % [place] % (Auto) 13.9 H (5.3-12.2) % Eos % (Auto) 2.5 (0.8-7.0) Baso % (Auto) 0.2 (0.1-1.2) % Neut # (Auto) 9.67 H (1.78-5.38) K/mm3 Lymph # (Auto) 1.05 L (1.32-3.57) K/mm3 [place] # (Auto) 1.80 H (0.30-0.82) K/mm3 Eos # (Auto) 0.32 (0.04-0.54) K/mm3 Baso # (Auto) 0.03 (0.01-0.08) K/mm3 Neutrophils % (Manual) (40-60) % Band Neutrophils % (0-10) % Lymphocytes % (Manual) (20-40) % Atypical Lymphs % % Monocytes % (Manual) (2-10) % Eosinophils % (Manual) (0.8-7.0) % Basophils % (Manual) (0.2-1.2) Platelet Estimate Plt Morphology Comment RBC Morph Comment PT (9.7-12.0) SECONDS INR APTT (22-31) SECONDS D-Dimer, Quantitative (0.19-0.50) mg/L Puncture Site Lt radial ABG pH 7.38 (7.35-7.45) ABG pCO2 39.2 (35.0-45.0) mmHg ABG pO2 175.0 H* (80.0-100.0) mmHg ABG HCO3 22.4 (22.0-26.0) meq/L ABG O2 Saturation 99.3 H (96.0-97.0) % ABG Base Excess -1.9 (-2-2.0) Johnathon Test Positive A-a Gradient 134 mmHg O2 Delivery Device Bipap Oxygen Flow Rate FiO2 0.00 L (21.00-100.00) % PEEP 6.0 cmH20 Pressure Support 12.0 cmH2O Sodium (136-145) mEq/L Potassium (3.5-5.1) mEq/L Chloride (98-107) mEq/L Carbon Dioxide (21-32) mEq/L Anion Gap (5-15) BUN (7-18) mg/dL Creatinine (0.7-1.3) mg/dL Est Cr Clr Drug Dosing mL/min Estimated GFR (MDRD) (>60) mL/min BUN/Creatinine Ratio (14-18) Glucose (83-115) mg/dL Lactic Acid 5.4 H (0.4-2.0) mmol/L Calcium (8.5-10.1) mg/dL Phosphorus (2.6-4.7) mg/dL Magnesium (1.8-2.4) mg/dl Total Bilirubin (0.2-1.0) mg/dL AST (15-37) U/L ALT (16-63) U/L Alkaline Phosphatase (46-116) U/L Troponin I (0.00-0.056) ng/mL NT-Pro-B Natriuret Pep (0-450) pg/mL Total Protein (6.4-8.2) g/dl Albumin (3.4-5.0) g/dl Globulin gm/dL Albumin/Globulin Ratio (1-2) Urine Color (Yellow) Urine Appearance (Clear) Urine pH (5.0-8.0) Ur Specific [place] (1.005-1.030) Urine Protein (Negative) Urine Glucose (UA) (Negative) Urine Ketones (Negative) Urine Occult Blood (Negative) Urine Nitrite (Negative) Urine Bilirubin (Negative) Urine Urobilinogen (0.2-1.0) Ur Leukocyte Esterase (Negative) Urine RBC (0-5) /hpf Urine WBC (0-5) /hpf Ur Epithelial Cells (0-5) /hpf Urine Bacteria (FEW) /hpf Hyaline Casts (0-5) /lpf Urine Mucus (FEW) /hpf 01/13/19 Range/Units 07:03 WBC (4.23-9.07) K/mm3 RBC (4.63-6.08) M/mm3 Hgb (13.7-17.5) gm/dl Hct (40.1-51.0) % MCV (79.0-92.2) fl MCH (25.7-32.2) pg MCHC (32.2-35.5) g/dl RDW Std Deviation (35.1-43.9) fL Plt Count (163-337) K/mm3 MPV (9.4-12.3) fl Neut % (Auto) (34.0-67.9) % Lymph % (Auto) (21.8-53.1) % [place] % (Auto) (5.3-12.2) % Eos % (Auto) (0.8-7.0) Baso % (Auto) (0.1-1.2) % Neut # (Auto) (1.78-5.38) K/mm3 Lymph # (Auto) (1.32-3.57) K/mm3 [place] # (Auto) (0.30-0.82) K/mm3 Eos # (Auto) (0.04-0.54) K/mm3 Baso # (Auto) (0.01-0.08) K/mm3 Neutrophils % (Manual) (40-60) % Band Neutrophils % (0-10) % Lymphocytes % (Manual) (20-40) % Atypical Lymphs % % Monocytes % (Manual) (2-10) % Eosinophils % (Manual) (0.8-7.0) % Basophils % (Manual) (0.2-1.2) Platelet Estimate Plt Morphology Comment RBC Morph Comment PT (9.7-12.0) SECONDS INR APTT (22-31) SECONDS D-Dimer, Quantitative (0.19-0.50) mg/L Puncture Site ABG pH (7.35-7.45) ABG pCO2 (35.0-45.0) mmHg ABG pO2 (80.0-100.0) mmHg ABG HCO3 (22.0-26.0) meq/L ABG O2 Saturation (96.0-97.0) % ABG Base Excess (-2-2.0) Johnathon Test A-a Gradient mmHg O2 Delivery Device Oxygen Flow Rate FiO2 (21.00-100.00) % PEEP cmH20 Pressure Support cmH2O Sodium 143 (136-145) mEq/L Potassium 4.4 (3.5-5.1) mEq/L Chloride 106 (98-107) mEq/L Carbon Dioxide 25 (21-32) mEq/L Anion Gap 16.4 H (5-15) BUN 22 H (7-18) mg/dL Creatinine 1.3 (0.7-1.3) mg/dL Est Cr Clr Drug Dosing 39.61 mL/min Estimated GFR (MDRD) 52 (>60) mL/min BUN/Creatinine Ratio 16.9 (14-18) Glucose 122 H (83-115) mg/dL Lactic Acid (0.4-2.0) mmol/L Calcium 8.6 (8.5-10.1) mg/dL Phosphorus 3.8 (2.6-4.7) mg/dL Magnesium 2.2 (1.8-2.4) mg/dl Total Bilirubin (0.2-1.0) mg/dL AST (15-37) U/L ALT (16-63) U/L Alkaline Phosphatase (46-116) U/L Troponin I (0.00-0.056) ng/mL NT-Pro-B Natriuret Pep (0-450) pg/mL Total Protein (6.4-8.2) g/dl Albumin (3.4-5.0) g/dl Globulin gm/dL Albumin/Globulin Ratio (1-2) Urine Color (Yellow) Urine Appearance (Clear) Urine pH (5.0-8.0) Ur Specific [place] (1.005-1.030) Urine Protein (Negative) Urine Glucose (UA) (Negative) Urine Ketones (Negative) Urine Occult Blood (Negative) Urine Nitrite (Negative) Urine Bilirubin (Negative) Urine Urobilinogen (0.2-1.0) Ur Leukocyte Esterase (Negative) Urine RBC (0-5) /hpf Urine WBC (0-5) /hpf Ur Epithelial Cells (0-5) /hpf Urine Bacteria (FEW) /hpf Hyaline Casts (0-5) /lpf Urine Mucus (FEW) /hpf Wenceslao Results Last 24 Hours: Microbiology 01/12/19 18:35 Influenza Type A Antigen Screen - Final Nasopharyngeal Swab NEGATIVE INFLUENZA A VIRUS AG REFERENCE RANGE: NEGATIVE Influenza Type B Antigen Screen - Final NEGATIVE INFLUENZA B VIRUS AG REFERENCE RANGE: NEGATIVE Med Orders - Current: Current Medications Budesonide (Pulmicort) 0.5 mg NEB BID JERARDO Levofloxacin/Dextrose 750 mg/ (Premix) 150 mls @ 100 mls/hr IV Q48H JERARDO Piperacillin Sod/Tazobactam (Sod 4.5 gm/ Sodium Chloride) 100 mls @ 25 mls/hr IV Q8H JERARDO Vancomycin HCl 1 gm/ Sodium (Chloride) 250 mls @ 250 mls/hr IV Q24H JERARDO Ipratropium [place] (Atrovent) 0.5 mg NEB Q6HRRT [facility] Last Admin: 01/13/19 02:04 Dose: 0.5 mg Vancomycin HCl (Pharmacy To Dose - Vancomycin) 1 dose .XX ASDIRECTED PRN PRN Reason: PHARMACY TO DOSE Discontinued Medications Sodium Chloride (Normal Saline) 500 mls @ 1,000 mls/hr IV .BOLUS ONE Stop: 01/12/19 19:08 Last Admin: 01/12/19 18:47 Dose: 1,000 mls/hr Piperacillin Sod/Tazobactam (Sod 4.5 gm/ Sodium Chloride) 100 mls @ 25 mls/hr IV ONETIME STA Stop: 01/12/19 22:46 Last Admin: 01/12/19 19:21 Dose: 25 mls/hr Vancomycin HCl 1 gm/ Sodium (Chloride) 250 mls @ 250 mls/hr IV ONETIME STA Stop: 01/12/19 19:45 Last Admin: 01/12/19 19:32 Dose: 250 mls/hr Vancomycin HCl 750 mg/ Sodium (Chloride) 250 mls @ 166.667 mls/hr IV Q24H JERARDO Oseltamivir Phosphate (Tamiflu) 75 mg PO ONETIME ONE Stop: 01/12/19 21:32 - Problem List & Annotations (1) Acute on chronic heart failure SNOMED Code(s): 793141184 Code(s): I50.9 - HEART FAILURE, UNSPECIFIED Status: Acute (2) Acute renal insufficiency SNOMED Code(s): 311221476 Code(s): N28.9 - DISORDER OF KIDNEY AND URETER, UNSPECIFIED Status: Acute (3) Acute respiratory failure SNOMED Code(s): 20627905 Code(s): J96.00 - ACUTE RESPIRATORY FAILURE, UNSP W HYPOXIA OR HYPERCAPNIA Status: Acute (4) Alzheimer's dementia SNOMED Code(s): 45723561 Code(s): G30.9 - ALZHEIMER'S DISEASE, UNSPECIFIED; F02.80 - DEMENTIA IN OTH DISEASES CLASSD ELSWHR W/O BEHAVRL DISTURB Status: Acute (5) Atrial fibrillation SNOMED Code(s): 30041431 Code(s): I48.91 - UNSPECIFIED ATRIAL FIBRILLATION Status: Acute (6) BPH (benign prostatic hyperplasia) SNOMED Code(s): 537079404 Code(s): N40.0 - BENIGN PROSTATIC HYPERPLASIA WITHOUT LOWER URINRY TRACT SYMP Status: Acute (7) Deafness in left ear SNOMED Code(s): 537435977 Code(s): H91.92 - UNSPECIFIED HEARING LOSS, LEFT EAR Status: Acute (8) Elevated troponin SNOMED Code(s): 194619264, 759753062, 688363386 Code(s): R79.89 - OTHER SPECIFIED ABNORMAL FINDINGS OF BLOOD CHEMISTRY Status: Acute (9) Generalized weakness SNOMED Code(s): 35068887 Code(s): R53.1 - WEAKNESS Status: Acute Priority: High (10) Healthcare-associated pneumonia SNOMED Code(s): 139648583, 113384354 Code(s): J18.9 - PNEUMONIA, UNSPECIFIED ORGANISM Status: Acute (11) Lactic acidosis SNOMED Code(s): 93850425 Code(s): E87.2 - ACIDOSIS Status: Acute (12) Poor appetite SNOMED Code(s): 45979764 Code(s): R63.0 - ANOREXIA Status: Acute Priority: High - Problem List Review Problem List Initiated/Reviewed/Updated: Yes - Plan Plan:: Acute respiratory failure PLAN - Continue BiPAP - Manage HAP Healthcare associated pneumonia PLAN - Continue Tamiflu, Vancomycin, Zosyn and Levaquin - Ipratropium nebulizations ever 6 hours - Procalcitonin pending - Induced sputum sample by RT, pending - Budesonide nebulizations every 12 hours - Guaifenesin every 8 hours Acute on chronic heart failure, unknown EF PLAN - Repeat echocardiogram ordered - Daily weights - Fluid and sodium restricted diet - Strict I/Os Atrial fibrillation on warfarin PLAN - continuous cardiac monitoring - Continue home warfarin - F/U on INR results Hypertension PLAN - Hold all BP meds for now Seizure disorder PLAN - Continue phenytoin Advanced Alzheimer's dementia PLAN - Let me sleep protocol - Encourage daytime wakefulness Benign prostate hyperplasia PLAN - No home meds - Place simpson catheter Left ear deafness PLAN - Make sure hearing aids are on during admission PROPHYLAXIS DVT- on warfarin GI- not indicated CODE STATUS: DNR/DNI DISPOSITION: Admitted for IV antibiotics and improvement of respiratory status. Discharge unlikely in the next 96 hours.
--- NOTE | 2019-01-13 08:23 | CR ---
Chest: Portable view of the chest was obtained. Comparison: Prior chest x-ray of 11/22/18. Moderate size hiatal hernia is noted. Heart is slightly enlarged. Tortuous thoracic aorta is noted. 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 Lungs are clear with no acute parenchymal change. Bony structures are grossly intact. Impression: 1. Findings as noted above. No change from prior chest x-rays seen. 2. Nothing acute is appreciated on portable chest x-ray. Diagnostic code #2
[2019-01-13] MEDS: Budesonide 0.5 MG/2 ML Neb Susp NEB SCH ×2 (08:45→20:26)
[2019-01-13] MEDS: Levofloxacin/Dextrose 5%-Water 750 MG in Premix Bag 1 BAG IV SCH ×2 (08:54→09:58)
[2019-01-13] MEDS: Piperacillin/Tazobactam 4.5 GM in Sodium Chloride 0.9% 100 ML IV SCH ×3 (09:02→23:48)
[2019-01-13] MEDS ORDERED: Oseltamivir 75 MG Cap PO ONE (15:45)
[2019-01-13] MEDS: guaiFENesin 600 MG Tab.ER PO SCH ×2 (17:29→20:03)
[2019-01-14] MEDS: Ipratropium 0.02% 0.5 MG/2.5 ML Neb Soln NEB SCH ×4 (02:30→20:23)
[2019-01-14] MEDS: Budesonide 0.5 MG/2 ML Neb Susp NEB SCH ×3 (07:48→20:23)
[2019-01-14] MEDS ORDERED: Furosemide 100 MG/10 ML SDV IVPUSH ONE (08:18)
--- NOTE | 2019-01-14 08:33 | PCM.PN ---
- General Info Date of Service: 01/14/19 Subjective Update: Worsening shortness of breath Slept intermittently - Patient Data Vitals - Most Recent: Last Vital Signs Temp 36.3 C 01/14/19 04:49 Pulse 115 H 01/14/19 04:49 Resp 26 H 01/14/19 04:49 BP 139/96 H 01/14/19 04:49 Pulse Ox 94 L 01/14/19 07:52 Weight - Most Recent: 72.665 kg - Exam General: Lethargic HEENT: Pupils Equal, Pupils Reactive Neck: Supple Lungs: Crackles, Rales, Rhonchi, Wheezing Cardiovascular: Regular Rate, Regular Rhythm GI/Abdominal Exam: Normal Bowel Sounds, Soft, Non-Tender, No Distention. No: Guarding, Rebound Back Exam: Normal Inspection Extremities: Normal Inspection, Pedal Edema, Slow Capillary Refill Neurological: No New Focal Deficit Physical Findings Comments:: General Appearance: Thin, Other (Tachypnea, tachycardic) Ears: Normal External Exam Nose: Normal Inspection Throat/Mouth: Normal Inspection, No Airway Compromise Head: Atraumatic, Normocephalic Neck: Normal Inspection, Full Range of Motion. No: Lymphadenopathy (L), Lymphadenopathy (R) Respiratory/Chest: No Respiratory Distress, Normal Breath Sounds, No Accessory Muscle Use, Decreased Breath Sounds (mild), Crackles, Rhonchi, Wheezing ( expiratory Rt > Lt). No: Stridor, Prolonged Expiration Cardiovascular: Normal Peripheral Pulses, No Edema, No Gallop, No JVD, No Murmur , No Rub, Tachycardia (regular) Peripheral Pulses: 4+: Radial (L), Radial (R) GI/Abdominal: Normal Bowel Sounds, Soft, Non-Tender, No Organomegaly, No Distention, No Abnormal Bruit, No Mass (Male) Exam: Deferred Rectal (Males) Exam: Deferred Back Exam: Normal Inspection, Full Range of Motion, NT Extremities: Normal Range of Motion, No Pedal Edema, Normal Capillary Refill, Other (Right thumb amputated) Neurological: Other (Patient obtunded) Skin Exam: Dry, Intact, Normal Color, No Rash, Cool - Problem List & Annotations (1) Acute on chronic heart failure SNOMED Code(s): 591863494 Code(s): I50.9 - HEART FAILURE, UNSPECIFIED Status: Acute (2) Acute renal insufficiency SNOMED Code(s): 641838881 Code(s): N28.9 - DISORDER OF KIDNEY AND URETER, UNSPECIFIED Status: Acute (3) Acute respiratory failure SNOMED Code(s): 29564190 Code(s): J96.00 - ACUTE RESPIRATORY FAILURE, UNSP W HYPOXIA OR HYPERCAPNIA Status: Acute (4) Alzheimer's dementia SNOMED Code(s): 64152546 Code(s): G30.9 - ALZHEIMER'S DISEASE, UNSPECIFIED; F02.80 - DEMENTIA IN OTH DISEASES CLASSD ELSWHR W/O BEHAVRL DISTURB Status: Acute (5) Atrial fibrillation SNOMED Code(s): 56016092 Code(s): I48.91 - UNSPECIFIED ATRIAL FIBRILLATION Status: Acute (6) BPH (benign prostatic hyperplasia) SNOMED Code(s): 573038964 Code(s): N40.0 - BENIGN PROSTATIC HYPERPLASIA WITHOUT LOWER URINRY TRACT SYMP Status: Acute (7) Chest pain SNOMED Code(s): 02104632 Code(s): R07.9 - CHEST PAIN, UNSPECIFIED Status: Acute (8) Deafness in left ear SNOMED Code(s): 533555619 Code(s): H91.92 - UNSPECIFIED HEARING LOSS, LEFT EAR Status: Acute (9) Elevated troponin SNOMED Code(s): 773745530, 864571135, 862119182 Code(s): R79.89 - OTHER SPECIFIED ABNORMAL FINDINGS OF BLOOD CHEMISTRY Status: Acute (10) Generalized weakness SNOMED Code(s): 89888349 Code(s): R53.1 - WEAKNESS Status: Acute Priority: High (11) Healthcare-associated pneumonia SNOMED Code(s): 398885480, 587129339 Code(s): J18.9 - PNEUMONIA, UNSPECIFIED ORGANISM Status: Acute (12) Hyperglycemia SNOMED Code(s): 46196291 Code(s): R73.9 - HYPERGLYCEMIA, UNSPECIFIED Status: Acute (13) Lactic acidosis SNOMED Code(s): 63529238 Code(s): E87.2 - ACIDOSIS Status: Acute - Problem List Review Problem List Initiated/Reviewed/Updated: Yes - Plan Plan:: Acute respiratory failure PLAN - Continue BiPAP - Manage HAP Healthcare associated pneumonia PLAN - Continue Tamiflu, Vancomycin, Zosyn and Levaquin - Ipratropium nebulizations ever 6 hours - Procalcitonin pending - Induced sputum sample by RT, pending - Budesonide nebulizations every 12 hours - Guaifenesin every 8 hours Acute on chronic heart failure, EF-26% PLAN - Daily weights - Fluid and sodium restricted diet - Strict I/Os Atrial fibrillation on warfarin PLAN - continuous cardiac monitoring - Continue home warfarin - F/U on INR results Hypertension PLAN - Hold all BP meds for now Seizure disorder PLAN - Continue phenytoin Advanced Alzheimer's dementia PLAN - Let me sleep protocol - Encourage daytime wakefulness Benign prostate hyperplasia PLAN - No home meds - Place simpson catheter Left ear deafness PLAN - Make sure hearing aids are on during admission PROPHYLAXIS DVT- on warfarin GI- not indicated CODE STATUS: DNR/DNI DISPOSITION: Admitted for IV antibiotics and improvement of respiratory status. Discharge unlikely in the next 96 hours. .
[2019-01-14] MEDS: Piperacillin/Tazobactam 4.5 GM in Sodium Chloride 0.9% 100 ML IV SCH ×2 (08:35→16:15)
--- NOTE | 2019-01-14 08:41 | CR ---
Chest: Portable view of the chest was obtained. Comparison: Previous chest x-ray of 01/12/19. Atelectasis is noted along the right heart margin. This atelectasis appears slightly increased from previous exam. Hiatal hernia is noted. Heart size is mildly enlarged. Previous sternotomy is noted for CABG. Bony structures are osteopenic. Carotid artery calcification is noted. Impression: 1. Mild increased atelectasis within the medial right lung base. 2. Stable hiatal hernia and mild cardiomegaly. Previous CABG. 3. Other findings as noted above. Nothing acute is appreciated. Diagnostic code #2
[2019-01-14] MEDS: guaiFENesin 600 MG Tab.ER PO SCH ×3 (11:22→22:05)
[2019-01-14] MEDS ORDERED: Calcium Carbonate 500 MG Tab.Chew PO PRN (14:01)
[2019-01-14] MEDS ORDERED: Warfarin 2.5 MG Tab PO SCH (14:15)
[2019-01-14] MEDS ORDERED: Carboxymethylcellulose Sodium 1% Ophth Gel 15 ML Bottle EYEBOTH PRN (14:30)
[2019-01-14] MEDS: ClonazePAM 0.5 MG Tab PO SCH ×2 (16:15→22:04)
[2019-01-14] MEDS: Warfarin 2.5 MG Tab PO SCH (18:10)
[2019-01-14] MEDS ORDERED: [UNRECOGNIZED DRUG - OTHER] PO SCH (21:00)
[2019-01-14] MEDS: Phenytoin 100 MG Cap.ER PO SCH (22:03)
[2019-01-14] MEDS: Donepezil 10 MG Tab PO SCH (22:03)
[2019-01-14] MEDS: Metoprolol Succinate 50 MG Tab.ER PO SCH (22:04)
[2019-01-14] MEDS: Rosuvastatin 10 MG Tab PO SCH (22:04)
[2019-01-14] MEDS: Lidocaine 4% 1 each Patch TOP SCH (23:32)
[2019-01-15] MEDS: Piperacillin/Tazobactam 4.5 GM in Sodium Chloride 0.9% 100 ML IV SCH ×3 (00:52→15:50)
[2019-01-15] MEDS: Ipratropium 0.02% 0.5 MG/2.5 ML Neb Soln NEB SCH ×5 (02:05→20:27)
[2019-01-15] MEDS: Pantoprazole 40 MG Tab.CR PO SCH (05:19)
[2019-01-15] MEDS: Magnesium Oxide 400 MG Tab PO SCH (08:33)
[2019-01-15] MEDS: Polyethylene Glycol 3350 Powder 17 GM Packet PO SCH (08:33)
[2019-01-15] MEDS: Tamsulosin 0.4 MG Cap.ER PO SCH (08:34)
[2019-01-15] MEDS: Methimazole 5 MG Tab PO SCH (08:34)
[2019-01-15] MEDS: Sertraline 50 MG Tab PO SCH (08:34)
[2019-01-15] MEDS: guaiFENesin 600 MG Tab.ER PO SCH ×3 (08:34→20:55)
[2019-01-15] MEDS: Isosorbide Mononitrate 30 MG Tab.ER PO SCH (08:34)
[2019-01-15] MEDS: ClonazePAM 0.5 MG Tab PO SCH ×2 (08:34→20:54)
[2019-01-15] MEDS: CASODEX PO SCH (08:36)
[2019-01-15] MEDS: Phenytoin 100 MG Cap.ER PO SCH ×2 (09:27→20:55)
[2019-01-15] MEDS: Budesonide 0.5 MG/2 ML Neb Susp NEB SCH ×3 (09:35→20:27)
[2019-01-15] MEDS: Digoxin 125 MCG Tab PO SCH (11:50)
[2019-01-15] MEDS: Oseltamivir 30 MG Cap PO SCH ×2 (12:26→20:55)
[2019-01-15] MEDS ORDERED: Enoxaparin 60 MG/0.6 ML Syringe SUBCUT ONE (15:35)
[2019-01-15] MEDS: Warfarin 2.5 MG Tab PO SCH (18:26)
--- NOTE | 2019-01-15 20:17 | PCM.PN ---
- General Info Date of Service: 01/15/19 Subjective Update: 1 assist 1L NC Slept through the night Cough very productive SOB better - Patient Data Vitals - Most Recent: Last Vital Signs Temp 37.0 C 01/15/19 16:00 Pulse 97 01/15/19 11:50 Resp 21 H 01/15/19 16:00 BP 136/100 H 01/15/19 16:00 Pulse Ox 96 01/15/19 16:00 Weight - Most Recent: 79.379 kg - Exam General: Alert, Oriented, Cooperative, No Acute Distress HEENT: Pupils Equal, Pupils Reactive Neck: Supple, Trachea Midline Lungs: Decreased Breath Sounds, Crackles, Rales, Rhonchi. No: Wheezing Cardiovascular: Regular Rate, Regular Rhythm GI/Abdominal Exam: Normal Bowel Sounds, Soft, Non-Tender Back Exam: Normal Inspection Extremities: Pedal Edema, Slow Capillary Refill Neurological: No New Focal Deficit Psy/Mental Status: Alert - Problem List & Annotations (1) Acute on chronic heart failure SNOMED Code(s): 028273881 Code(s): I50.9 - HEART FAILURE, UNSPECIFIED Status: Acute (2) Acute renal insufficiency SNOMED Code(s): 293209804 Code(s): N28.9 - DISORDER OF KIDNEY AND URETER, UNSPECIFIED Status: Acute (3) Acute respiratory failure SNOMED Code(s): 76946498 Code(s): J96.00 - ACUTE RESPIRATORY FAILURE, UNSP W HYPOXIA OR HYPERCAPNIA Status: Acute (4) Alzheimer's dementia SNOMED Code(s): 80182301 Code(s): G30.9 - ALZHEIMER'S DISEASE, UNSPECIFIED; F02.80 - DEMENTIA IN OTH DISEASES CLASSD ELSWHR W/O BEHAVRL DISTURB Status: Acute (5) Atrial fibrillation SNOMED Code(s): 62697087 Code(s): I48.91 - UNSPECIFIED ATRIAL FIBRILLATION Status: Acute (6) BPH (benign prostatic hyperplasia) SNOMED Code(s): 207104052 Code(s): N40.0 - BENIGN PROSTATIC HYPERPLASIA WITHOUT LOWER URINRY TRACT SYMP Status: Acute (7) Chest pain SNOMED Code(s): 69179819 Code(s): R07.9 - CHEST PAIN, UNSPECIFIED Status: Acute (8) Deafness in left ear SNOMED Code(s): 681246898 Code(s): H91.92 - UNSPECIFIED HEARING LOSS, LEFT EAR Status: Acute (9) Elevated troponin SNOMED Code(s): 260545040, 982511063, 005590352 Code(s): R79.89 - OTHER SPECIFIED ABNORMAL FINDINGS OF BLOOD CHEMISTRY Status: Acute - Problem List Review Problem List Initiated/Reviewed/Updated: Yes - Plan Plan:: Acute respiratory failure, improving BiPAP off PLAN - Continue NC - Manage HAP Healthcare associated pneumonia Mycoplasma negative + Rhino end enterovirus PLAN - Continue Tamiflu, Vancomycin, Zosyn and Levaquin - Ipratropium nebulizations ever 6 hours - Induced sputum sample by RT, pending - Budesonide nebulizations every 12 hours - Guaifenesin every 8 hours Concern for dysphagia PLAN - MBSS ordered Acute on chronic heart failure, EF-26% PLAN - Daily weights - Fluid and sodium restricted diet - Strict I/Os Atrial fibrillation on warfarin PLAN - continuous cardiac monitoring - Continue home warfarin Hypertension PLAN - Hold all BP meds for now Seizure disorder PLAN - Continue phenytoin Advanced Alzheimer's dementia PLAN - Let me sleep protocol - Encourage daytime wakefulness Benign prostate hyperplasia PLAN - No home meds - Place simpson catheter Left ear deafness PLAN - Make sure hearing aids are on during admission PROPHYLAXIS DVT- on warfarin GI- not indicated CODE STATUS: DNR/DNI DISPOSITION: Admitted for IV antibiotics and improvement of respiratory status. 1 -2 person assist here, senior care 1 person pivot assist. Pending swallow evaluation.
[2019-01-15] MEDS: Metoprolol Succinate 50 MG Tab.ER PO SCH (20:55)
[2019-01-15] MEDS: Rosuvastatin 10 MG Tab PO SCH (20:55)
[2019-01-15] MEDS: Donepezil 10 MG Tab PO SCH (20:55)
[2019-01-15] MEDS: Lidocaine 4% 1 each Patch TOP SCH (20:56)
[2019-01-16] MEDS: Piperacillin/Tazobactam 4.5 GM in Sodium Chloride 0.9% 100 ML IV SCH ×3 (01:01→16:26)
[2019-01-16] MEDS: Ipratropium 0.02% 0.5 MG/2.5 ML Neb Soln NEB SCH ×4 (02:49→20:38)
[2019-01-16] MEDS: Pantoprazole 40 MG Tab.CR PO SCH (06:20)
[2019-01-16] MEDS: Budesonide 0.5 MG/2 ML Neb Susp NEB SCH ×2 (07:59→20:38)
[2019-01-16] MEDS: guaiFENesin 600 MG Tab.ER PO SCH ×3 (09:10→21:14)
[2019-01-16] MEDS: Phenytoin 100 MG Cap.ER PO SCH ×2 (09:11→21:12)
[2019-01-16] MEDS: Sertraline 50 MG Tab PO SCH (09:11)
[2019-01-16] MEDS: Magnesium Oxide 400 MG Tab PO SCH (09:11)
[2019-01-16] MEDS: ClonazePAM 0.5 MG Tab PO SCH ×2 (09:11→21:14)
[2019-01-16] MEDS: Methimazole 5 MG Tab PO SCH (09:11)
[2019-01-16] MEDS: Tamsulosin 0.4 MG Cap.ER PO SCH (09:12)
[2019-01-16] MEDS: Oseltamivir 30 MG Cap PO SCH ×2 (09:12→21:14)
[2019-01-16] MEDS: Polyethylene Glycol 3350 Powder 17 GM Packet PO SCH (09:17)
[2019-01-16] MEDS: CASODEX PO SCH (09:17)
[2019-01-16] MEDS: Isosorbide Mononitrate 30 MG Tab.ER PO SCH (09:23)
[2019-01-16] MEDS ORDERED: Enoxaparin 80 MG/0.8 ML Syringe SUBCUT ONE (11:45)
[2019-01-16] MEDS: Digoxin 125 MCG Tab PO SCH (12:34)
[2019-01-16] MEDS ORDERED: guaiFENesin/Dextromethorphan 100-10 MG/5 ML Soln 5 ML Cup PO PRN (13:50)
[2019-01-16] MEDS: guaiFENesin/Dextromethorphan 100-10 MG/5 ML Soln 5 ML Cup PO PRN ×2 (15:00→21:12)
[2019-01-16] MEDS ORDERED: Furosemide 40 MG/4 ML VIAL IVPUSH ONE (16:22)
[2019-01-16] MEDS ORDERED: Potassium Chloride 20 MEQ Tab.ER PO ONE (17:34)
[2019-01-16] MEDS: Warfarin 2.5 MG Tab PO SCH (18:13)
[2019-01-16] MEDS: Donepezil 10 MG Tab PO SCH (21:14)
[2019-01-16] MEDS: Rosuvastatin 10 MG Tab PO SCH (21:14)
[2019-01-16] MEDS: Lidocaine 4% 1 each Patch TOP SCH (21:15)
[2019-01-16] MEDS: Metoprolol Succinate 50 MG Tab.ER PO SCH (21:16)
[2019-01-17] MEDS: Piperacillin/Tazobactam 4.5 GM in Sodium Chloride 0.9% 100 ML IV SCH ×4 (00:07→18:26)
[2019-01-17] MEDS: Ipratropium 0.02% 0.5 MG/2.5 ML Neb Soln NEB SCH ×4 (01:59→20:05)
[2019-01-17] MEDS ORDERED: Potassium Chloride 20 MEQ Tab.ER PO ONE (06:00)
[2019-01-17] MEDS: Furosemide 40 MG/4 ML VIAL IVPUSH SCH ×2 (06:56→09:31)
[2019-01-17] MEDS: Pantoprazole 40 MG Tab.CR PO SCH (06:57)
[2019-01-17] MEDS: Polyethylene Glycol 3350 Powder 17 GM Packet PO SCH (09:28)
[2019-01-17] MEDS: CASODEX PO SCH (09:29)
[2019-01-17] MEDS: Phenytoin 100 MG Cap.ER PO SCH ×2 (09:30→20:14)
[2019-01-17] MEDS: Oseltamivir 30 MG Cap PO SCH ×2 (09:30→20:16)
[2019-01-17] MEDS: Sertraline 50 MG Tab PO SCH (09:30)
[2019-01-17] MEDS: Magnesium Oxide 400 MG Tab PO SCH (09:30)
[2019-01-17] MEDS: Methimazole 5 MG Tab PO SCH (09:30)
[2019-01-17] MEDS: guaiFENesin 600 MG Tab.ER PO SCH ×3 (09:30→20:16)
[2019-01-17] MEDS: Tamsulosin 0.4 MG Cap.ER PO SCH (09:31)
[2019-01-17] MEDS: ClonazePAM 0.5 MG Tab PO SCH ×2 (09:31→20:14)
[2019-01-17] MEDS: Isosorbide Mononitrate 30 MG Tab.ER PO SCH (09:31)
[2019-01-17] MEDS: Budesonide 0.5 MG/2 ML Neb Susp NEB SCH ×2 (10:00→20:04)
[2019-01-17] MEDS: Digoxin 125 MCG Tab PO SCH (12:05)
--- NOTE | 2019-01-17 14:01 | PCM.PN ---
- General Info Date of Service: 01/17/19 Subjective Update: Candelario is doing well without complaints. He is on day 6 of IV antibiotics for Healthcare associated pneumonia. WBC had normalized and he is afebrile. - Review of Systems General: Reports: No Symptoms HEENT: Reports: No Symptoms Pulmonary: Reports: Cough Cardiovascular: Reports: No Symptoms Gastrointestinal: Reports: No Symptoms Genitourinary: Reports: No Symptoms - Patient Data Vitals - Most Recent: Last Vital Signs Temp 97.9 F 01/17/19 11:31 Pulse 86 01/17/19 12:05 Resp 19 01/17/19 11:31 BP 108/72 01/17/19 11:31 Pulse Ox 91 L 01/17/19 11:31 Weight - Most Recent: 159 lb 12.8 oz I&O - Last 24 Hours: Intake & Output 01/16/19 01/17/19 01/17/19 22:59 06:59 14:59 Intake Total 960 800 420 Output Total 910 Balance 50 800 420 Lab Results Last 24 Hours: Laboratory Results - last 24 hr 01/16/19 Range/Units 05:30 Procalcitonin 0.25 H (<0.10) ng/mL Wenceslao Results Last 24 Hours: Microbiology 01/12/19 19:32 Aerobic Blood Culture - Preliminary Blood - Venous NO GROWTH AFTER 4 DAYS Anaerobic Blood Culture - Preliminary NO GROWTH AFTER 4 DAYS 01/12/19 16:35 Aerobic Blood Culture - Preliminary Blood - Venous - Lab Draw NO GROWTH AFTER 4 DAYS Anaerobic Blood Culture - Preliminary NO GROWTH AFTER 4 DAYS Med Orders - Current: Current Medications Artificial Tears (Refresh Liquigel 1%) 0 ml EYEBOTH TID PRN PRN Reason: Dry Eyes Budesonide (Pulmicort) 0.5 mg NEB BID [facility] Last Admin: 01/17/19 10:00 Dose: 0.5 mg Calcium Carbonate/Glycine (Tums) 500 mg PO Q6H PRN PRN Reason: Heartburn Clonazepam (Klonopin) 0.5 mg PO BID [facility] Last Admin: 01/17/19 09:31 Dose: 0.5 mg Digoxin (Lanoxin) 125 mcg PO DAILY@1200 JERARDO Last Admin: 01/17/19 12:05 Dose: 125 mcg Donepezil HCl (Aricept) 10 mg PO BEDTIME [facility] Last Admin: 01/16/19 21:14 Dose: 10 mg Furosemide (Lasix) 40 mg IVPUSH DAILY [facility] Last Admin: 01/17/19 09:31 Dose: Not Given Guaifenesin (Mucinex) 600 mg PO TID [facility] Last Admin: 01/17/19 09:30 Dose: 600 mg Guaifenesin/Phenylephrine HCl (Robitussin Dm) 5 ml PO Q4H PRN PRN Reason: Cough Last Admin: 01/16/19 21:12 Dose: 5 ml Vancomycin HCl 1 gm/ Sodium (Chloride) 250 mls @ 250 mls/hr IV Q12H [facility] Last Admin: 01/17/19 09:28 Dose: 250 mls/hr Piperacillin Sod/Tazobactam (Sod 4.5 gm/ Sodium Chloride) 100 mls @ 25 mls/hr IV Q8H [facility] Last Admin: 01/17/19 12:05 Dose: 25 mls/hr Ipratropium [place] (Atrovent) 0.5 mg NEB Q6HRRT [facility] Last Admin: 01/17/19 10:00 Dose: 0.5 mg Isosorbide Mononitrate (Imdur) 30 mg PO DAILY [facility] Last Admin: 01/17/19 09:31 Dose: 30 mg Lidocaine (Aspercreme 4%) 2 each TOP BEDTIME [facility] Last Admin: 01/16/19 21:15 Dose: 2 each Magnesium Oxide (Magnesium Oxide) 400 mg PO DAILY [facility] Last Admin: 01/17/19 09:30 Dose: 400 mg Meclizine HCl (Antivert) 25 mg PO BID PRN PRN Reason: Dizziness Methimazole (Methimazole) 5 mg PO DAILY [facility] Last Admin: 01/17/19 09:30 Dose: 5 mg Metoprolol Succinate (Toprol Xl) 50 mg PO BEDTIME [facility] Last Admin: 01/16/19 21:16 Dose: 50 mg Miscellaneous Information (Remove Patch) 2 ea TRDERM DAILY [facility] Last Admin: 01/17/19 09:31 Dose: 2 ea Oseltamivir Phosphate (Tamiflu) 30 mg PO BID [facility] Stop: 01/19/19 09:01 Last Admin: 01/17/19 09:30 Dose: 30 mg Pantoprazole Sodium (Protonix) 40 mg PO ACBREAKFAST [facility] Last Admin: 01/17/19 06:57 Dose: 40 mg Casodex ( (Bicalutamide 50 Mg)) 0 each PO DAILY [facility] Last Admin: 01/17/19 09:29 Dose: 1 each Phenytoin Sodium (Phenytoin) 200 mg PO BID [facility] Last Admin: 01/17/19 09:30 Dose: 200 mg Polyethylene Glycol (Miralax) 17 gm PO DAILY [facility] Last Admin: 01/17/19 09:28 Dose: 17 gm Rosuvastatin Calcium (Crestor) 20 mg PO BEDTIME [facility] Last Admin: 01/16/19 21:14 Dose: 20 mg Sertraline HCl (Zoloft) 100 mg PO DAILY [facility] Last Admin: 01/17/19 09:30 Dose: 100 mg Tamsulosin HCl (Flomax) 0.4 mg PO DAILY [facility] Last Admin: 01/17/19 09:31 Dose: 0.4 mg Vancomycin HCl (Pharmacy To Dose - Vancomycin) 1 dose .XX ASDIRECTED PRN PRN Reason: PHARMACY TO DOSE Warfarin Sodium (Coumadin) 5 mg PO QPM JERARDO Stop: 01/17/19 18:01 Warfarin Sodium (Pharmacy To Dose - Warfarin) 1 dose PO ASDIRECTED PRN PRN Reason: RX TO DOSE WARFARIN Discontinued Medications Enoxaparin Sodium (Lovenox) 60 mg SUBCUT ONETIME ONE Stop: 01/15/19 15:36 Last Admin: 01/15/19 15:48 Dose: 60 mg Enoxaparin Sodium (Lovenox) 70 mg SUBCUT ONETIME ONE Stop: 01/16/19 11:46 Last Admin: 01/16/19 12:35 Dose: 70 mg Furosemide (Lasix) 60 mg IVPUSH NOW ONE Stop: 01/14/19 08:19 Last Admin: 01/14/19 08:35 Dose: 60 mg Furosemide (Lasix) 40 mg IVPUSH NOW ONE Stop: 01/16/19 16:23 Last Admin: 01/16/19 16:34 Dose: 40 mg Guaifenesin/Phenylephrine HCl (Robitussin Dm) 5 ml PO Q4H PRN PRN Reason: Cough Sodium Chloride (Normal Saline) 500 mls @ 1,000 mls/hr IV .BOLUS ONE Stop: 01/12/19 19:08 Last Admin: 01/12/19 18:47 Dose: 1,000 mls/hr Piperacillin Sod/Tazobactam (Sod 4.5 gm/ Sodium Chloride) 100 mls @ 25 mls/hr IV ONETIME STA Stop: 01/12/19 22:46 Last Admin: 01/12/19 19:21 Dose: 25 mls/hr Vancomycin HCl 1 gm/ Sodium (Chloride) 250 mls @ 250 mls/hr IV ONETIME STA Stop: 01/12/19 19:45 Last Admin: 01/12/19 19:32 Dose: 250 mls/hr Levofloxacin/Dextrose 750 mg/ (Premix) 150 mls @ 100 mls/hr IV Q48H [facility] Last Admin: 01/13/19 09:58 Dose: Not Given Piperacillin Sod/Tazobactam (Sod 4.5 gm/ Sodium Chloride) 100 mls @ 25 mls/hr IV Q8H [facility] Last Admin: 01/17/19 12:09 Dose: Not Given Vancomycin HCl 750 mg/ Sodium (Chloride) 250 mls @ 166.667 mls/hr IV Q24H [facility] Vancomycin HCl 1 gm/ Sodium (Chloride) 250 mls @ 250 mls/hr IV Q24H [facility] Last Admin: 01/13/19 18:00 Dose: 250 mls/hr Vancomycin HCl 1 gm/ Sodium (Chloride) 250 mls @ 250 mls/hr IV Q24H [facility] Last Admin: 01/15/19 18:54 Dose: Not Given Non-Formulary Medication (Act Mouth Wash) 10 ml PO BID [facility] Last Admin: 01/14/19 22:28 Dose: Not Given Oseltamivir Phosphate (Tamiflu) 75 mg PO ONETIME ONE Stop: 01/12/19 21:32 Last Admin: 01/13/19 15:46 Dose: Not Given Oseltamivir Phosphate (Tamiflu) 75 mg PO ONETIME ONE Stop: 01/13/19 15:46 Last Admin: 01/13/19 15:54 Dose: 75 mg Potassium Chloride (Klor-Con M20) 40 meq PO ONETIME ONE Stop: 01/16/19 17:35 Last Admin: 01/16/19 18:13 Dose: 40 meq Potassium Chloride (Klor-Con M20) 40 meq PO ONETIME ONE Stop: 01/17/19 06:01 Last Admin: 01/17/19 06:57 Dose: 40 meq Warfarin Sodium (Coumadin) 2.5 mg PO DAILY@1800 JERARDO Last Admin: 01/16/19 18:13 Dose: 2.5 mg - Exam Quality Assessment: No: Supplemental Oxygen General: Alert, Oriented HEENT: Pupils Equal, Pupils Reactive, EOMI, Mucous Membr. Moist/[place] Neck: Supple Lungs: Normal Respiratory Effort, Rhonchi Cardiovascular: Regular Rate, Regular Rhythm GI/Abdominal Exam: Normal Bowel Sounds, Soft, Non-Tender, No Organomegaly, No Distention, No Abnormal Bruit, No Mass Extremities: Normal Inspection, Normal Range of Motion, Non-Tender, No Pedal Edema Skin: Warm, Dry, Intact Psy/Mental Status: Alert, Normal Affect, Normal Mood - Problem List Review Problem List Initiated/Reviewed/Updated: Yes - My Orders Last 24 Hours: My Active Orders 01/17/19 11:03 Warfarin Pharmacy to Dose [Pharmacy to Dose - Warfarin] 1 dose PO ASDIRECTED PRN 01/17/19 12:36 Meclizine [Antivert] 25 mg PO BID PRN 01/17/19 18:00 Warfarin [Coumadin] 5 mg PO QPM 01/18/19 05:11 INR,PT,PROTHROMBIN TIME [COAG] AM 01/19/19 05:11 INR,PT,PROTHROMBIN TIME [COAG] AM 01/20/19 05:11 INR,PT,PROTHROMBIN TIME [COAG] AM 01/21/19 05:11 INR,PT,PROTHROMBIN TIME [COAG] AM 01/22/19 05:11 INR,PT,PROTHROMBIN TIME [COAG] AM - Plan Plan:: Acute respiratory failure - resolved PLAN - Off BiPAP - Manage HAP Healthcare associated pneumonia PLAN - Vancomycin, Zosyn for 7 days - Tamiflu - 5 days - Ipratropium nebulizations ever 6 hours - Procalcitonin - low risk for progression to sepsis - Influenza swab - neg - Induced sputum sample by RT - Budesonide nebulizations every 12 hours - Guaifenesin every 8 hours Acute on chronic heart failure, unknown EF PLAN - Repeat echocardiogram ordered - Daily weights - Fluid and sodium restricted diet - Strict I/Os - Change furosemide dose to home dose and recheck BNP in AM Atrial fibrillation on warfarin PLAN - continuous cardiac monitoring - Pharmacy to dose warfarin - F/U on INR results Hypertension PLAN - Hold all BP meds for now Seizure disorder PLAN - Continue phenytoin Advanced Alzheimer's dementia PLAN - Let me sleep protocol - Encourage daytime wakefulness Benign prostate hyperplasia PLAN - No home meds - Place simpson catheter Left ear deafness PLAN - Make sure hearing aids are on during admission
[2019-01-17] MEDS ORDERED: Furosemide 40 MG/4 ML VIAL IVPUSH ONE (15:21)
[2019-01-17] MEDS ORDERED: Warfarin 5 MG Tab PO SCH (18:00)
[2019-01-17] MEDS: Rosuvastatin 10 MG Tab PO SCH (20:14)
[2019-01-17] MEDS: Metoprolol Succinate 50 MG Tab.ER PO SCH (20:16)
[2019-01-17] MEDS: Lidocaine 4% 1 each Patch TOP SCH (20:16)
[2019-01-17] MEDS: Donepezil 10 MG Tab PO SCH (20:16)
[2019-01-18] MEDS: Piperacillin/Tazobactam 4.5 GM in Sodium Chloride 0.9% 100 ML IV SCH ×2 (02:42→10:54)
[2019-01-18] MEDS: Ipratropium 0.02% 0.5 MG/2.5 ML Neb Soln NEB SCH ×2 (02:43→08:20)
[2019-01-18] MEDS: Pantoprazole 40 MG Tab.CR PO SCH (06:38)
[2019-01-18] MEDS: Budesonide 0.5 MG/2 ML Neb Susp NEB SCH (08:21)
[2019-01-18] MEDS ORDERED: Furosemide 20 MG Tab PO SCH (09:00)
[2019-01-18] MEDS: Phenytoin 100 MG Cap.ER PO SCH (09:14)
[2019-01-18] MEDS: Polyethylene Glycol 3350 Powder 17 GM Packet PO SCH (09:15)
[2019-01-18] MEDS: guaiFENesin 600 MG Tab.ER PO SCH (09:16)
[2019-01-18] MEDS: ClonazePAM 0.5 MG Tab PO SCH (09:16)
[2019-01-18] MEDS: Tamsulosin 0.4 MG Cap.ER PO SCH (09:17)
[2019-01-18] MEDS: Sertraline 50 MG Tab PO SCH (09:18)
[2019-01-18] MEDS: Magnesium Oxide 400 MG Tab PO SCH (09:19)
[2019-01-18] MEDS: Isosorbide Mononitrate 30 MG Tab.ER PO SCH (09:19)
[2019-01-18] MEDS: Oseltamivir 30 MG Cap PO SCH (09:20)
[2019-01-18] MEDS: Methimazole 5 MG Tab PO SCH (09:20)
[2019-01-18] MEDS: CASODEX PO SCH (11:00)
[2019-01-18] MEDS: Digoxin 125 MCG Tab PO SCH (11:26)
--- NOTE | 2019-01-18 13:29 | PCM.DCSUM1 ---
Discharge Summary - Hospital Course HPI Initial Comments: Patient was admitted for acute respiratory failure, healthcare associated pneumonia, and acute on chronic heart failure. Patient was initially placed on BiPAP and was weaned to room air. He was started on vancomycin, Zosyn, and Tamiflu and completed 7 days of vancomycin and Zosyn and 5 days of Tamiflu. Patient continued to improve throughout hospitalization. Fluid restriction and sodium restriction in association with IV Lasix improved his heart failure. Patient should follow-up with his primary care provider next week. Brief History: Mr. Campos is a 88-year-old man transferred to us from [facility] in [place], with reported that he developed cold like symptoms yesterday, then apparent shortness of breath today. The fpc reported to EMS that the patient's mental status was not his usual bearing in mind that the patient has a history of Alzheimer dementia. EMS found the patient's oxygen saturation to be in the 80s. They placed a nonrebreather mask, bringing his oxygen saturation to about 92%. Here in the ED, the patient was placed on BiPAP. He is essentially obtunded. We are told that the patient is both DNR and DNI. The patient's PCP is Dr. Joel Galvan. Diagnosis: Stroke: No - Discharge Data Discharge Date: 01/18/19 Discharge Disposition: DC/Tfer to Care Home [facility] Condition: Good - Referral to Home Health Primary Care Physician: Joel Galvan MD - Patient Summary/Data Consults: Consultations 01/12/19 23:50 OT Evaluation and Treatment [CONS] Routine PT Evaluation and Treatment [CONS] Routine - Patient Instructions Diet: Heart Healthy Diet Driving: Do Not Drive Showering/Bathing: May Shower Other/Special Instructions: Follow up with your PCP next week. Get INR on Tuesday. - Discharge Plan *PRESCRIPTION DRUG MONITORING PROGRAM REVIEWED*: Not Applicable *COPY OF PRESCRIPTION DRUG MONITORING REPORT IN PATIENT ЕЛЕНА: Not Applicable Prescriptions/Med Rec: Warfarin [Coumadin] 3 mg PO QPM #30 tablet Home Medications: Home Meds Albuterol/Ipratropium [Combivent] 2 puff INH QID 09/12/13 [History] Alfuzosin [Uroxatral] 10 mg PO PCBREAKFAST 09/12/13 [History] Isosorbide Mononitrate [Isosorbide Mononitrate ER] 30 mg PO DAILY 09/12/13 [ History] Magnesium Oxide 400 mg PO DAILY 09/12/13 [History] Nitroglycerin [Nitrostat] 0.4 mg SL ASDIRECTED PRN 09/12/13 [History] Phenytoin Sodium Extended [Dilantin] 200 mg PO BID 09/12/13 [History] Sertraline HCl [Zoloft] 100 mg PO DAILY 09/12/13 [History] Pantoprazole [ProTONIX] 40 mg PO ACBREAKFAST 02/14/16 [History] Donepezil HCl 10 mg PO BEDTIME 06/09/17 [History] Polyethylene Glycol 3350 [MiraLAX] 17 gm PO DAILY 06/09/17 [History] Rosuvastatin [Crestor] 20 mg PO BEDTIME 06/13/17 [History] Dextromethorphan/guaiFENesin [Robitussin DM] 5 ml PO Q4H PRN #120 ml 06/16/17 [ Rx] Acetaminophen [Tylenol Arthritis] 650 mg PO Q6HR PRN 11/22/18 [History] Act Mouth Wash 10 ml PO BID 11/22/18 [History] Bicalutamide [Casodex] 50 mg PO DAILY 11/22/18 [History] Metoprolol Succinate [Toprol Xl] 50 mg PO BEDTIME 11/22/18 [History] PEG 400/Hypromellose/Glycerin [Artificial Tears Drops] 1 drop EYEBOTH TID PRN [History] Simethicone [Gas Relief] 80 mg PO Q4HR PRN 11/22/18 [History] Sodium Chloride [Saline Nasal Mist] 1 spray NASBOTH QID PRN 11/22/18 [History] methIMAzole [Methimazole] 5 mg PO DAILY 11/22/18 [History] Calcium Carbonate [Tums] 200 mg PO Q6H PRN 01/12/19 [History] ClonazePAM [KlonoPIN] 0.5 mg PO BID 01/12/19 [History] Digoxin [Digox] 125 mcg PO DAILY 01/12/19 [History] Furosemide [Lasix] 20 mg PO DAILY 01/12/19 [History] Lidocaine 1 patch TOP BID 01/12/19 [History] Warfarin [Coumadin] 3 mg PO QPM #30 tablet 01/18/19 [Rx] Patient Handouts: Sepsis, Adult, Heart Attack Forms: ED Department Discharge Referrals: Joel Galvan MD [Primary Care Provider] - 01/26/19 8:00 am - Discharge Summary/Plan Comment DC Time >30 min.: Yes Discharge Summary/Plan Comment: Patient follow-up with his primary care provider in 5 days. He will need an INR on Tuesday, January 22, 2019. - General Info Date of Service: 01/18/19 Subjective Update: Patient has done well. He continues to improve and has had a full 7 days of IV antibiotics and 5 days of Tamiflu. Functional Status: Reports: Pain Controlled - Review of Systems General: Reports: No Symptoms HEENT: Reports: No Symptoms Pulmonary: Reports: No Symptoms Cardiovascular: Reports: No Symptoms Gastrointestinal: Reports: No Symptoms - Patient Data Vitals - Most Recent: Last Vital Signs Temp 98.1 F 01/18/19 11:32 Pulse 87 01/18/19 11:32 Resp 20 01/18/19 11:32 BP 114/83 01/18/19 11:32 Pulse Ox 95 01/18/19 11:32 Weight - Most Recent: 158 lb 1.6 oz I&O - Last 24 hours: Intake & Output 01/17/19 01/18/19 01/18/19 22:59 06:59 14:59 Intake Total 1070 650 420 Balance 1070 650 420 Lab Results - Last 24 hrs: Laboratory Results - last 24 hr 01/18/19 01/18/19 01/18/19 Range/Units 07:02 07:02 07:02 WBC 9.50 H (4.23-9.07) K/mm3 RBC 5.07 (4.63-6.08) M/mm3 Hgb 14.8 (13.7-17.5) gm/dl Hct 44.7 (40.1-51.0) % MCV 88.2 (79.0-92.2) fl MCH 29.2 (25.7-32.2) pg MCHC 33.1 (32.2-35.5) g/dl RDW Std Deviation 49.3 H (35.1-43.9) fL Plt Count 201 (163-337) K/mm3 MPV 10.0 (9.4-12.3) fl Neut % (Auto) 66.3 (34.0-67.9) % Lymph % (Auto) 11.8 L (21.8-53.1) % [place] % (Auto) 14.4 H (5.3-12.2) % Eos % (Auto) 6.3 (0.8-7.0) Baso % (Auto) 0.4 (0.1-1.2) % Neut # (Auto) 6.29 H (1.78-5.38) K/mm3 Lymph # (Auto) 1.12 L (1.32-3.57) K/mm3 [place] # (Auto) 1.37 H (0.30-0.82) K/mm3 Eos # (Auto) 0.60 H (0.04-0.54) K/mm3 Baso # (Auto) 0.04 (0.01-0.08) K/mm3 PT 20.3 H (9.7-12.0) SECONDS INR 1.93 Sodium (136-145) mEq/L Potassium (3.5-5.1) mEq/L Chloride (98-107) mEq/L Carbon Dioxide (21-32) mEq/L Anion Gap (5-15) BUN (7-18) mg/dL Creatinine (0.7-1.3) mg/dL Est Cr Clr Drug Dosing mL/min Estimated GFR (MDRD) (>60) mL/min BUN/Creatinine Ratio (14-18) Glucose (83-115) mg/dL Calcium (8.5-10.1) mg/dL Magnesium (1.8-2.4) mg/dl Total Bilirubin (0.2-1.0) mg/dL AST (15-37) U/L ALT (16-63) U/L Alkaline Phosphatase (46-116) U/L NT-Pro-B Natriuret Pep (0-450) pg/mL Total Protein (6.4-8.2) g/dl Albumin (3.4-5.0) g/dl Globulin gm/dL Albumin/Globulin Ratio (1-2) Vancomycin Trough 26.2 H (10.0-20.0) 01/18/19 01/18/19 Range/Units 07:02 07:02 WBC (4.23-9.07) K/mm3 RBC (4.63-6.08) M/mm3 Hgb (13.7-17.5) gm/dl Hct (40.1-51.0) % MCV (79.0-92.2) fl MCH (25.7-32.2) pg MCHC (32.2-35.5) g/dl RDW Std Deviation (35.1-43.9) fL Plt Count (163-337) K/mm3 MPV (9.4-12.3) fl Neut % (Auto) (34.0-67.9) % Lymph % (Auto) (21.8-53.1) % [place] % (Auto) (5.3-12.2) % Eos % (Auto) (0.8-7.0) Baso % (Auto) (0.1-1.2) % Neut # (Auto) (1.78-5.38) K/mm3 Lymph # (Auto) (1.32-3.57) K/mm3 [place] # (Auto) (0.30-0.82) K/mm3 Eos # (Auto) (0.04-0.54) K/mm3 Baso # (Auto) (0.01-0.08) K/mm3 PT (9.7-12.0) SECONDS INR Sodium 144 (136-145) mEq/L Potassium 3.7 (3.5-5.1) mEq/L Chloride 106 (98-107) mEq/L Carbon Dioxide 28 (21-32) mEq/L Anion Gap 13.7 (5-15) BUN 20 H (7-18) mg/dL Creatinine 1.3 (0.7-1.3) mg/dL Est Cr Clr Drug Dosing 39.61 mL/min Estimated GFR (MDRD) 52 (>60) mL/min BUN/Creatinine Ratio 15.4 (14-18) Glucose 112 (83-115) mg/dL Calcium 8.7 (8.5-10.1) mg/dL Magnesium 2.2 (1.8-2.4) mg/dl Total Bilirubin 0.9 (0.2-1.0) mg/dL AST 22 (15-37) U/L ALT 25 (16-63) U/L Alkaline Phosphatase 99 (46-116) U/L NT-Pro-B Natriuret Pep 3921 H (0-450) pg/mL Total Protein 7.0 (6.4-8.2) g/dl Albumin 3.2 L (3.4-5.0) g/dl Globulin 3.8 gm/dL Albumin/Globulin Ratio 0.8 L (1-2) Vancomycin Trough (10.0-20.0) KEERTHI Results - Last 24 hrs: Microbiology 01/12/19 19:32 Aerobic Blood Culture - Preliminary Blood - Venous NO GROWTH AFTER 5 DAYS Anaerobic Blood Culture - Preliminary NO GROWTH AFTER 5 DAYS 01/12/19 16:35 Aerobic Blood Culture - Preliminary Blood - Venous - Lab Draw NO GROWTH AFTER 5 DAYS Anaerobic Blood Culture - Preliminary NO GROWTH AFTER 5 DAYS Med Orders - Current: Current Medications Artificial Tears (Refresh Liquigel 1%) 0 ml EYEBOTH TID PRN PRN Reason: Dry Eyes Budesonide (Pulmicort) 0.5 mg NEB BID [facility] Last Admin: 01/18/19 08:21 Dose: 0.5 mg Calcium Carbonate/Glycine (Tums) 500 mg PO Q6H PRN PRN Reason: Heartburn Clonazepam (Klonopin) 0.5 mg PO BID [facility] Last Admin: 01/18/19 09:16 Dose: 0.5 mg Digoxin (Lanoxin) 125 mcg PO DAILY@1200 [facility] Last Admin: 01/18/19 11:26 Dose: 125 mcg Donepezil HCl (Aricept) 10 mg PO BEDTIME [facility] Last Admin: 01/17/19 20:16 Dose: 10 mg Furosemide (Lasix) 20 mg PO DAILY [facility] Last Admin: 01/18/19 09:17 Dose: 20 mg Guaifenesin (Mucinex) 600 mg PO TID [facility] Last Admin: 01/18/19 09:16 Dose: 600 mg Guaifenesin/Phenylephrine HCl (Robitussin Dm) 5 ml PO Q4H PRN PRN Reason: Cough Last Admin: 01/16/19 21:12 Dose: 5 ml Piperacillin Sod/Tazobactam (Sod 4.5 gm/ Sodium Chloride) 100 mls @ 25 mls/hr IV Q8H [facility] Stop: 01/18/19 14:00 Last Admin: 01/18/19 10:54 Dose: 25 mls/hr Ipratropium [place] (Atrovent) 0.5 mg NEB Q6HRRT [facility] Last Admin: 01/18/19 08:20 Dose: 0.5 mg Isosorbide Mononitrate (Imdur) 30 mg PO DAILY [facility] Last Admin: 01/18/19 09:19 Dose: 30 mg Lidocaine (Aspercreme 4%) 2 each TOP BEDTIME [facility] Last Admin: 01/17/19 20:16 Dose: 2 each Magnesium Oxide (Magnesium Oxide) 400 mg PO DAILY [facility] Last Admin: 01/18/19 09:19 Dose: 400 mg Meclizine HCl (Antivert) 25 mg PO BID PRN PRN Reason: Dizziness Last Admin: 01/17/19 15:55 Dose: 25 mg Methimazole (Methimazole) 5 mg PO DAILY [facility] Last Admin: 01/18/19 09:20 Dose: 5 mg Metoprolol Succinate (Toprol Xl) 50 mg PO BEDTIME [facility] Last Admin: 01/17/19 20:16 Dose: 50 mg Miscellaneous Information (Remove Patch) 2 ea TRDERM DAILY [facility] Last Admin: 01/18/19 10:53 Dose: 2 ea Oseltamivir Phosphate (Tamiflu) 30 mg PO BID [facility] Stop: 01/19/19 09:01 Last Admin: 01/18/19 09:20 Dose: 30 mg Pantoprazole Sodium (Protonix) 40 mg PO ACBREAKFAST [facility] Last Admin: 01/18/19 06:38 Dose: 40 mg Casodex ( (Bicalutamide 50 Mg)) 0 each PO DAILY [facility] Last Admin: 01/18/19 11:00 Dose: 1 each Phenytoin Sodium (Phenytoin) 200 mg PO BID [facility] Last Admin: 01/18/19 09:14 Dose: 200 mg Polyethylene Glycol (Miralax) 17 gm PO DAILY [facility] Last Admin: 01/18/19 09:15 Dose: 17 gm Rosuvastatin Calcium (Crestor) 20 mg PO BEDTIME [facility] Last Admin: 01/17/19 20:14 Dose: 20 mg Sertraline HCl (Zoloft) 100 mg PO DAILY [facility] Last Admin: 01/18/19 09:18 Dose: 100 mg Tamsulosin HCl (Flomax) 0.4 mg PO DAILY [facility] Last Admin: 01/18/19 09:17 Dose: 0.4 mg Warfarin Sodium (Pharmacy To Dose - Warfarin) 1 dose PO ASDIRECTED PRN PRN Reason: RX TO DOSE WARFARIN Warfarin Sodium (Coumadin) 3 mg PO QPM [facility] Stop: 01/18/19 18:01 Discontinued Medications Enoxaparin Sodium (Lovenox) 60 mg SUBCUT ONETIME ONE Stop: 01/15/19 15:36 Last Admin: 01/15/19 15:48 Dose: 60 mg Enoxaparin Sodium (Lovenox) 70 mg SUBCUT ONETIME ONE Stop: 01/16/19 11:46 Last Admin: 01/16/19 12:35 Dose: 70 mg Furosemide (Lasix) 60 mg IVPUSH NOW ONE Stop: 01/14/19 08:19 Last Admin: 01/14/19 08:35 Dose: 60 mg Furosemide (Lasix) 40 mg IVPUSH NOW ONE Stop: 01/16/19 16:23 Last Admin: 01/16/19 16:34 Dose: 40 mg Furosemide (Lasix) 40 mg IVPUSH DAILY [facility] Last Admin: 01/17/19 09:31 Dose: Not Given Furosemide (Lasix) 40 mg IVPUSH NOW ONE Stop: 01/17/19 15:22 Last Admin: 01/17/19 15:56 Dose: 20 mg Guaifenesin/Phenylephrine HCl (Robitussin Dm) 5 ml PO Q4H PRN PRN Reason: Cough Sodium Chloride (Normal Saline) 500 mls @ 1,000 mls/hr IV .BOLUS ONE Stop: 01/12/19 19:08 Last Admin: 01/12/19 18:47 Dose: 1,000 mls/hr Piperacillin Sod/Tazobactam (Sod 4.5 gm/ Sodium Chloride) 100 mls @ 25 mls/hr IV ONETIME STA Stop: 01/12/19 22:46 Last Admin: 01/12/19 19:21 Dose: 25 mls/hr Vancomycin HCl 1 gm/ Sodium (Chloride) 250 mls @ 250 mls/hr IV ONETIME STA Stop: 01/12/19 19:45 Last Admin: 01/12/19 19:32 Dose: 250 mls/hr Levofloxacin/Dextrose 750 mg/ (Premix) 150 mls @ 100 mls/hr IV Q48H [facility] Last Admin: 01/13/19 09:58 Dose: Not Given Piperacillin Sod/Tazobactam (Sod 4.5 gm/ Sodium Chloride) 100 mls @ 25 mls/hr IV Q8H [facility] Last Admin: 01/17/19 12:09 Dose: Not Given Vancomycin HCl 750 mg/ Sodium (Chloride) 250 mls @ 166.667 mls/hr IV Q24H [facility] Vancomycin HCl 1 gm/ Sodium (Chloride) 250 mls @ 250 mls/hr IV Q24H [facility] Last Admin: 01/13/19 18:00 Dose: 250 mls/hr Vancomycin HCl 1 gm/ Sodium (Chloride) 250 mls @ 250 mls/hr IV Q24H [facility] Last Admin: 01/15/19 18:54 Dose: Not Given Vancomycin HCl 1 gm/ Sodium (Chloride) 250 mls @ 250 mls/hr IV Q12H [facility] Last Admin: 01/17/19 22:16 Dose: 250 mls/hr Non-Formulary Medication (Act Mouth Wash) 10 ml PO BID [facility] Last Admin: 01/14/19 22:28 Dose: Not Given Oseltamivir Phosphate (Tamiflu) 75 mg PO ONETIME ONE Stop: 01/12/19 21:32 Last Admin: 01/13/19 15:46 Dose: Not Given Oseltamivir Phosphate (Tamiflu) 75 mg PO ONETIME ONE Stop: 01/13/19 15:46 Last Admin: 01/13/19 15:54 Dose: 75 mg Potassium Chloride (Klor-Con M20) 40 meq PO ONETIME ONE Stop: 01/16/19 17:35 Last Admin: 01/16/19 18:13 Dose: 40 meq Potassium Chloride (Klor-Con M20) 40 meq PO ONETIME ONE Stop: 01/17/19 06:01 Last Admin: 01/17/19 06:57 Dose: 40 meq Vancomycin HCl (Pharmacy To Dose - Vancomycin) 1 dose .XX ASDIRECTED PRN PRN Reason: PHARMACY TO DOSE Warfarin Sodium (Coumadin) 2.5 mg PO DAILY@1800 [facility] Last Admin: 01/16/19 18:13 Dose: 2.5 mg Warfarin Sodium (Coumadin) 5 mg PO QPM [facility] Stop: 01/17/19 18:01 Last Admin: 01/17/19 18:25 Dose: 5 mg - Exam Quality Assessment: Denies: Supplemental Oxygen General: Reports: Alert Neck: Reports: Supple Lungs: Reports: Clear to Auscultation, Normal Respiratory Effort Cardiovascular: Reports: Regular Rate, Regular Rhythm GI/Abdominal Exam: Normal Bowel Sounds, Soft, Non-Tender, No Distention Back Exam: Reports: Normal Inspection Extremities: Normal Inspection, Normal Range of Motion, Non-Tender, Normal Capillary Refill Neurological: Reports: No New Focal Deficit
[2019-01-18] MEDS ORDERED: Warfarin 3 MG Tab PO SCH (18:00)
--- NOTE | 2019-01-29 16:33 | PCM.PN ---
- General Info Date of Service: 01/16/19 Subjective Update: 1L NC Slept through the night Cough very productive SOB better - Patient Data Vitals - Most Recent: Last Vital Signs Temp 36.7 C 01/18/19 11:32 Pulse 81 01/18/19 12:34 Resp 20 01/18/19 11:32 BP 114/83 01/18/19 11:32 Pulse Ox 92 L 01/18/19 12:34 Weight - Most Recent: 79.379 kg Med Orders - Current: Current Medications Discontinued Medications Artificial Tears (Refresh Liquigel 1%) 0 ml EYEBOTH TID PRN PRN Reason: Dry Eyes Budesonide (Pulmicort) 0.5 mg NEB BID [facility] Last Admin: 01/18/19 08:21 Dose: 0.5 mg Calcium Carbonate/Glycine (Tums) 500 mg PO Q6H PRN PRN Reason: Heartburn Clonazepam (Klonopin) 0.5 mg PO BID [facility] Last Admin: 01/18/19 09:16 Dose: 0.5 mg Digoxin (Lanoxin) 125 mcg PO DAILY@1200 [facility] Last Admin: 01/18/19 11:26 Dose: 125 mcg Donepezil HCl (Aricept) 10 mg PO BEDTIME [facility] Last Admin: 01/17/19 20:16 Dose: 10 mg Enoxaparin Sodium (Lovenox) 60 mg SUBCUT ONETIME ONE Stop: 01/15/19 15:36 Last Admin: 01/15/19 15:48 Dose: 60 mg Enoxaparin Sodium (Lovenox) 70 mg SUBCUT ONETIME ONE Stop: 01/16/19 11:46 Last Admin: 01/16/19 12:35 Dose: 70 mg Furosemide (Lasix) 60 mg IVPUSH NOW ONE Stop: 01/14/19 08:19 Last Admin: 01/14/19 08:35 Dose: 60 mg Furosemide (Lasix) 40 mg IVPUSH NOW ONE Stop: 01/16/19 16:23 Last Admin: 01/16/19 16:34 Dose: 40 mg Furosemide (Lasix) 40 mg IVPUSH DAILY [facility] Last Admin: 01/17/19 09:31 Dose: Not Given Furosemide (Lasix) 20 mg PO DAILY [facility] Last Admin: 01/18/19 09:17 Dose: 20 mg Furosemide (Lasix) 40 mg IVPUSH NOW ONE Stop: 01/17/19 15:22 Last Admin: 01/17/19 15:56 Dose: 20 mg Guaifenesin (Mucinex) 600 mg PO TID [facility] Last Admin: 01/18/19 09:16 Dose: 600 mg Guaifenesin/Phenylephrine HCl (Robitussin Dm) 5 ml PO Q4H PRN PRN Reason: Cough Guaifenesin/Phenylephrine HCl (Robitussin Dm) 5 ml PO Q4H PRN PRN Reason: Cough Last Admin: 01/16/19 21:12 Dose: 5 ml Sodium Chloride (Normal Saline) 500 mls @ 1,000 mls/hr IV .BOLUS ONE Stop: 01/12/19 19:08 Last Admin: 01/12/19 18:47 Dose: 1,000 mls/hr Piperacillin Sod/Tazobactam (Sod 4.5 gm/ Sodium Chloride) 100 mls @ 25 mls/hr IV ONETIME STA Stop: 01/12/19 22:46 Last Admin: 01/12/19 19:21 Dose: 25 mls/hr Vancomycin HCl 1 gm/ Sodium (Chloride) 250 mls @ 250 mls/hr IV ONETIME ST[facility] Stop: 01/12/19 19:45 Last Admin: 01/12/19 19:32 Dose: 250 mls/hr Levofloxacin/Dextrose 750 mg/ (Premix) 150 mls @ 100 mls/hr IV Q48H [facility] Last Admin: 01/13/19 09:58 Dose: Not Given Piperacillin Sod/Tazobactam (Sod 4.5 gm/ Sodium Chloride) 100 mls @ 25 mls/hr IV Q8H [facility] Last Admin: 01/17/19 12:09 Dose: Not Given Vancomycin HCl 750 mg/ Sodium (Chloride) 250 mls @ 166.667 mls/hr IV Q24H [facility] Vancomycin HCl 1 gm/ Sodium (Chloride) 250 mls @ 250 mls/hr IV Q24H [facility] Last Admin: 01/13/19 18:00 Dose: 250 mls/hr Vancomycin HCl 1 gm/ Sodium (Chloride) 250 mls @ 250 mls/hr IV Q24H [facility] Last Admin: 01/15/19 18:54 Dose: Not Given Vancomycin HCl 1 gm/ Sodium (Chloride) 250 mls @ 250 mls/hr IV Q12H [facility] Last Admin: 01/17/19 22:16 Dose: 250 mls/hr Piperacillin Sod/Tazobactam (Sod 4.5 gm/ Sodium Chloride) 100 mls @ 25 mls/hr IV Q8H [facility] Stop: 01/18/19 14:00 Last Admin: 01/18/19 10:54 Dose: 25 mls/hr Ipratropium [place] (Atrovent) 0.5 mg NEB Q6HRRT [facility] Last Admin: 01/18/19 08:20 Dose: 0.5 mg Isosorbide Mononitrate (Imdur) 30 mg PO DAILY [facility] Last Admin: 01/18/19 09:19 Dose: 30 mg Lidocaine (Aspercreme 4%) 2 each TOP BEDTIME [facility] Last Admin: 01/17/19 20:16 Dose: 2 each Magnesium Oxide (Magnesium Oxide) 400 mg PO DAILY [facility] Last Admin: 01/18/19 09:19 Dose: 400 mg Meclizine HCl (Antivert) 25 mg PO BID PRN PRN Reason: Dizziness Last Admin: 01/17/19 15:55 Dose: 25 mg Methimazole (Methimazole) 5 mg PO DAILY [facility] Last Admin: 01/18/19 09:20 Dose: 5 mg Metoprolol Succinate (Toprol Xl) 50 mg PO BEDTIME [facility] Last Admin: 01/17/19 20:16 Dose: 50 mg Miscellaneous Information (Remove Patch) 2 ea TRDERM DAILY [facility] Last Admin: 01/18/19 10:53 Dose: 2 ea Non-Formulary Medication (Act Mouth Wash) 10 ml PO BID [facility] Last Admin: 01/14/19 22:28 Dose: Not Given Oseltamivir Phosphate (Tamiflu) 75 mg PO ONETIME ONE Stop: 01/12/19 21:32 Last Admin: 01/13/19 15:46 Dose: Not Given Oseltamivir Phosphate (Tamiflu) 75 mg PO ONETIME ONE Stop: 01/13/19 15:46 Last Admin: 01/13/19 15:54 Dose: 75 mg Oseltamivir Phosphate (Tamiflu) 30 mg PO BID [facility] Stop: 01/19/19 09:01 Last Admin: 01/18/19 09:20 Dose: 30 mg Pantoprazole Sodium (Protonix) 40 mg PO ACBREAKFAST [facility] Last Admin: 01/18/19 06:38 Dose: 40 mg Casodex ( (Bicalutamide 50 Mg)) 0 each PO DAILY [facility] Last Admin: 01/18/19 11:00 Dose: 1 each Phenytoin Sodium (Phenytoin) 200 mg PO BID [facility] Last Admin: 01/18/19 09:14 Dose: 200 mg Polyethylene Glycol (Miralax) 17 gm PO DAILY [facility] Last Admin: 01/18/19 09:15 Dose: 17 gm Potassium Chloride (Klor-Con M20) 40 meq PO ONETIME ONE Stop: 01/16/19 17:35 Last Admin: 01/16/19 18:13 Dose: 40 meq Potassium Chloride (Klor-Con M20) 40 meq PO ONETIME ONE Stop: 01/17/19 06:01 Last Admin: 01/17/19 06:57 Dose: 40 meq Rosuvastatin Calcium (Crestor) 20 mg PO BEDTIME [facility] Last Admin: 01/17/19 20:14 Dose: 20 mg Sertraline HCl (Zoloft) 100 mg PO DAILY [facility] Last Admin: 01/18/19 09:18 Dose: 100 mg Tamsulosin HCl (Flomax) 0.4 mg PO DAILY [facility] Last Admin: 01/18/19 09:17 Dose: 0.4 mg Vancomycin HCl (Pharmacy To Dose - Vancomycin) 1 dose .XX ASDIRECTED PRN PRN Reason: PHARMACY TO DOSE Warfarin Sodium (Coumadin) 2.5 mg PO DAILY@1800 [facility] Last Admin: 01/16/19 18:13 Dose: 2.5 mg Warfarin Sodium (Coumadin) 5 mg PO QPM [facility] Stop: 01/17/19 18:01 Last Admin: 01/17/19 18:25 Dose: 5 mg Warfarin Sodium (Pharmacy To Dose - Warfarin) 1 dose PO ASDIRECTED PRN PRN Reason: RX TO DOSE WARFARIN Warfarin Sodium (Coumadin) 3 mg PO QPM [facility] Stop: 01/18/19 18:01 - Exam Physical Findings Comments:: General: Alert, Oriented, Cooperative, No Acute Distress HEENT: Pupils Equal, Pupils Reactive Neck: Supple, Trachea Midline Lungs: Decreased Breath Sounds, Crackles, Rales, Rhonchi. No: Wheezing Cardiovascular: Regular Rate, Regular Rhythm GI/Abdominal Exam: Normal Bowel Sounds, Soft, Non-Tender Back Exam: Normal Inspection Extremities: Pedal Edema, Slow Capillary Refill Neurological: No New Focal Deficit Psy/Mental Status: Alert - Problem List & Annotations (1) Acute on chronic heart failure SNOMED Code(s): 170100126 Code(s): I50.9 - HEART FAILURE, UNSPECIFIED Status: Acute (2) Acute renal insufficiency SNOMED Code(s): 117727471 Code(s): N28.9 - DISORDER OF KIDNEY AND URETER, UNSPECIFIED Status: Acute (3) Acute respiratory failure SNOMED Code(s): 65485871 Code(s): J96.00 - ACUTE RESPIRATORY FAILURE, UNSP W HYPOXIA OR HYPERCAPNIA Status: Acute (4) Alzheimer's dementia SNOMED Code(s): 96005948 Code(s): G30.9 - ALZHEIMER'S DISEASE, UNSPECIFIED; F02.80 - DEMENTIA IN OTH DISEASES CLASSD ELSWHR W/O BEHAVRL DISTURB Status: Acute (5) Atrial fibrillation SNOMED Code(s): 33563042 Code(s): I48.91 - UNSPECIFIED ATRIAL FIBRILLATION Status: Acute (6) BPH (benign prostatic hyperplasia) SNOMED Code(s): 929001620 Code(s): N40.0 - BENIGN PROSTATIC HYPERPLASIA WITHOUT LOWER URINRY TRACT SYMP Status: Acute (7) Chest pain SNOMED Code(s): 97659614 Code(s): R07.9 - CHEST PAIN, UNSPECIFIED Status: Acute (8) Deafness in left ear SNOMED Code(s): 824092974 Code(s): H91.92 - UNSPECIFIED HEARING LOSS, LEFT EAR Status: Acute (9) Elevated troponin SNOMED Code(s): 433682408, 989757211, 856750254 Code(s): R79.89 - OTHER SPECIFIED ABNORMAL FINDINGS OF BLOOD CHEMISTRY Status: Acute - Problem List Review Problem List Initiated/Reviewed/Updated: Yes - Plan Plan:: Acute respiratory failure, improving BiPAP off PLAN - Continue NC - Manage [facility] Healthcare associated pneumonia Mycoplasma negative + Rhino end enterovirus PLAN - Continue Tamiflu, Vancomycin, Zosyn and Levaquin - Ipratropium nebulizations ever 6 hours - Induced sputum sample by RT, pending - Budesonide nebulizations every 12 hours - Guaifenesin every 8 hours Concern for dysphagia PLAN - MBSS ordered Acute on chronic heart failure, EF-26% PLAN - Daily weights - Fluid and sodium restricted diet - Strict I/Os Atrial fibrillation on warfarin PLAN - continuous cardiac monitoring - Continue home warfarin Hypertension PLAN - Hold all BP meds for now Seizure disorder PLAN - Continue phenytoin Advanced Alzheimer's dementia PLAN - Let me sleep protocol - Encourage daytime wakefulness Benign prostate hyperplasia PLAN - No home meds - Place simpson catheter Left ear deafness PLAN - Make sure hearing aids are on during admission PROPHYLAXIS DVT- on warfarin GI- not indicated CODE STATUS: DNR/DNI DISPOSITION: Admitted for IV antibiotics and improvement of respiratory status. 1 -2 person assist here, shelter 1 person pivot assist. Pending swallow evaluation.
== END 2019-01-18 14:30 | DRG 193 ==
LOC: JD.ED 18:06 → JD.ICU 21:45 → JD.MS 01-13 18:41
PROVIDERS: ADMIT Internal Medicine; ATTEND Internal Medicine
PROC: 5A09457 Assistance with Respiratory Ventilation, 24-96 Consecutive Hours, Continuous Positive Airway Pressure (ICD-10-PCS; principal; 2019-01-12)
DX: J96.01 Acute respiratory failure with hypoxia (principal); N17.9 Acute kidney failure, unspecified; E87.2 Acidosis; R79.89 Other specified abnormal findings of blood chemistry; R41.82 Altered mental status, unspecified; J18.9 Pneumonia, unspecified organism; J96.00 Acute respiratory failure, unspecified whether with hypoxia or hypercapnia; I50.9 Heart failure, unspecified; I10 Essential (primary) hypertension; G30.9 Alzheimer's disease, unspecified; F02.80 Dementia in other diseases classified elsewhere, unspecified severity, without behavioral disturbance, psychotic disturbance, mood disturbance, and anxiety; I48.91 Unspecified atrial fibrillation; E78.00 Pure hypercholesterolemia, unspecified; I11.0 Hypertensive heart disease with heart failure; Z79.82 Long term (current) use of aspirin; K21.9 Gastro-esophageal reflux disease without esophagitis; F10.20 Alcohol dependence, uncomplicated; G40.909 Epilepsy, unspecified, not intractable, without status epilepticus; Y95 Nosocomial condition; N40.0 Benign prostatic hyperplasia without lower urinary tract symptoms; H91.92 Unspecified hearing loss, left ear; Z66 Do not resuscitate; E03.9 Hypothyroidism, unspecified; Z79.899 Other long term (current) drug therapy; Z79.01 Long term (current) use of anticoagulants; Z88.1 Allergy status to other antibiotic agents; Z88.5 Allergy status to narcotic agent; Z88.8 Allergy status to other drugs, medicaments and biological substances; Z91.048 Other nonmedicinal substance allergy status; Z85.828 Personal history of other malignant neoplasm of skin; Z98.49 Cataract extraction status, unspecified eye; Z90.49 Acquired absence of other specified parts of digestive tract; I25.2 Old myocardial infarction; Z95.1 Presence of aortocoronary bypass graft; Z95.5 Presence of coronary angioplasty implant and graft
CPT/HCPCS: 36415; 36600; 51702; 71045; 71275; 80053; 81001; 82803; 83605; 83735; 83880; 84100; 84145; 84484; 85007; 85027; 85379; 85610; 85730; 87040 ×2; 87804 ×2; 87899; 93005; 94660; 96361; 96365; 96366; 96368; 99285; J2543; J3370; J7030; J7040; J7050; 80048; 80162; 80185; 80202; 85025; 86738; 87486; 87581; 87632; 87798; 93010; 93306; 94640; 94761; 97110-GO; 97116-GP; 97162-GP; 97166-GO; 97530-GO; 97530-GP; 99283; A9270-GY; J1650; J1940; J1956